=== PATIENT | female | born 1930 | race Caucasian/White ===

== ENCOUNTER 2021-06-16 16:45 | Inpatient (IN) ==
--- NOTE | 2021-06-16 17:37 | Emergency Department Note ---
HPI General Chief complaint: Weakness Stated complaint: Weakness, pain, failure to thrive Time Seen by Provider: 06/16/21 16:51 Source: EMS Mode of arrival: EMS Limitations: no limitations History of Present Illness HPI Narrative: Narrative: This is a pleasant 89-year-old female who presents emergency department with a complaint of weakness, chest pain, productive cough, abdominal pain. She states that about 2 weeks ago she started to develop her symptoms. She has not been getting any better and is here in the emergency department for evaluation. She also states that the hospice people took away all of her medication so she has not had any of her pain medication in 4 days. She reports she is no longer on hospice she also has been having some lower abdominal pain that she describes as a aching sensation. Nothing makes her pain worse or better. She also has substernal left-sided chest pain when she takes a deep breath in. She denies shortness of breath. She has also been having a sometimes productive cough over the last 2 weeks as well. She denies any fever, headache, blurry vision, nausea, vomiting, diarrhea, dysuria, urinary frequency or urgency. Related Data Home Medications Medication Instructions Recorded Confirmed ibuprofen PO 07/29/14 10/23/20 simethicone 125 mg capsule (Gas 125 mg PO .COMPLEX PRN 09/12/19 10/23/20 Relief Extra Strength) Previous Rx's Medication Instructions Recorded diaper,brief,adult,disposable #120 each 07/08/15 ([employer]) toilet seat riser #1 ea 04/20/17 home oxygen #1 ea 08/24/17 Handicap Placard See Rx Instructions .ROUTE 12/21/17 .COMPLEX #2 polyethylene glycol 3350 17 gram 17 g PO QDAY #30 each 10/23/19 oral powder packet 3x3 foam dressing #10 each 11/28/19 Commode #1 ea 12/20/19 magnesium citrate 125 mg capsule 125 mg PO QHS #7 cap 07/11/20 albuterol sulfate 2.5 mg (3 mL) INHALATION Q4H PRN 08/19/20 #540 ml fluticasone furoate 200 1 inh INHALATION Q24H #1 device 09/01/20 mcg-vilanterol 25 mcg/dose inhalation powder (Breo Ellipta) fluticasone propionate 50 2 spray INTRANASAL BID #16 g 09/01/20 mcg/actuation nasal spray,suspension Ventolin HFA 90 mcg/actuation See Rx Instructions .ROUTE 09/29/20 aerosol inhaler (albuterol sulfate) .COMPLEX #18 gram NS cephalexin 500 mg capsule 500 mg PO BID #20 cap 10/03/20 hydrocodone 10 mg-acetaminophen 1 tab PO Q4H PRN #168 tab 10/06/20 325 mg tablet Allergies Allergy/AdvReac Type Severity Reaction Status Date / Time Sulfa (Sulfonamide Allergy Unknown Unknown Verified 06/16/21 16:49 Antibiotics) Review of Systems ROS ROS Narrative: Narrative: [facility] Narrative Patient History Narrative: Narrative: Medical/Surgical/Family History All Active Problems (Updated 06/16/21 @ 20:19 by Jovani Dominguez PA-C) Fungal infection of skin (Acute) Constipation (Acute) Pressure ulcer of back (Acute) Pneumonia (Acute) Colitis (Acute) Lung mass (Acute) Excessive cerumen in left ear canal (Acute) Cellulitis of earlobe (Acute) Medicare annual wellness visit, initial (Acute) Migraines (Acute) Joint pain (Acute) Muscle pain (Acute) History of colonoscopy (Acute ~2013) Chronic abdominal pain (Acute) Sinusitis, acute (Acute) Sinus pressure (Acute) Urinary tract infection (Acute) 23-polyvalent pneumococcal polysaccharide vaccine declined (Chronic) Acute exacerbation of chronic obstructive airways disease (Acute) Lumbar radiculopathy (Chronic) Encounter for medication refill (Acute) Geriatric health maintenance (Acute) Wrist pain (Chronic 05/22/14) Weight loss (Chronic 05/22/14) Thyroid mass (Chronic 05/22/14) Osteoporosis (Chronic 03/22/14) Meniere's disease (Chronic) Melanoma of skin (Chronic) Irritable bowel syndrome (Chronic) Hyperlipidemia (Chronic) External hemorrhoids (Chronic) Gastroesophageal reflux (Chronic) Uterine fibroid (Chronic) Degeneration of lumbosacral intervertebral disc (Chronic) Constipation (Chronic) Chronic back pain (Chronic) Chronic obstructive pulmonary disease (Chronic) Medical History 23-polyvalent pneumococcal polysaccharide vaccine declined Acute exacerbation of chronic obstructive airways disease Cellulitis of earlobe Chronic back pain Back Chronic obstructive pulmonary disease Constipation Degeneration of lumbosacral intervertebral disc Encounter for medication refill Excessive cerumen in left ear canal External hemorrhoids Gastritis Gastroesophageal reflux Hyperlipidemia Irritable bowel syndrome Joint pain Lumbar radiculopathy Medicare annual wellness visit, initial Melanoma of skin Removed 2002 Meniere's disease Migraines Muscle pain Osteoporosis (03/22/14) Thyroid mass (05/22/14) Uterine fibroid Weight loss (05/22/14) Wrist pain (05/22/14) Surgical History History of colonoscopy (~2013) History of hemorrhoidectomy History of malignant neoplasm of skin Family History Unknown Alcohol abuse Family history of chronic pain Cardiac disease Essential hypertension Osteoarthritis Social History Smoking Status: Current every day smoker Alcohol Intake Frequency: a few times a month Substance Use: does not use Exam Narrative Narrative: Narrative: General Limitations: no limitations General appearance: Present alert and in no apparent distress Head Head: Present atraumatic and normocephalic Respiratory Respiratory: Present other (There is mild Rales in the right lower lobe. Otherw ise a clear to auscultation. Tachypnea) Cardiovascular Cardiovascular: Present tachycardia and normal heart sounds Adbominal Abdominal: Present other (Abdomen is soft and nondistended. There is no gua rding. Patient has tenderness in right and left lower quadrants and suprapubic as well.) Back Back: Present other (Negative CVA tenderness bilaterally. Patient does have some chronic ulcers on her back. They are stage I and are covered with a Band- Aid. No surrounding erythema. No purulent drainage.) Neurological Neurological: Present alert and oriented X3 Psychiatric Psychiatric: Present normal affect and normal mood Skin Skin: Present warm (WNL), dry and normal color Course Vital Signs Vital signs: Vital Signs Temperature 98.3 F 06/16/21 16:45 Pulse Rate 101 H 06/16/21 16:45 Respiratory Rate 16 06/16/21 16:45 Blood Pressure 116/77 06/16/21 16:45 Pulse Oximetry (%) 96 06/16/21 16:45 Temperature 98.3 F 06/16/21 16:45 Pulse Rate 104 H 06/16/21 18:46 Respiratory Rate 31 H 06/16/21 18:46 Blood Pressure 128/72 06/16/21 18:46 Pulse Oximetry (%) 95 06/16/21 18:46 MDM MDM Narrative Medical decision making narrative: Narrative: CBC leukocytosis with elevated absolute neutrophil count CMP anion gap 17 at BUN 36 1 L of fluid given Procalcitonin elevated Troponin 0 ECG shows a sinus rhythm Chest x-ray shows pneumonia in right lower lobe CT abdomen pelvis with contrast shows gallbladder is a mildly distended. There is slight prominence of the biliary ductal structures and common bile duct. Further evaluation of the biliary ductal system and gallbladder with ultrasound may be benefit. Small hiatal hernia is suspected. There is no evidence of bowel obstruction. There is a some fecal debris within the proximal slight thickening of the distal colonic wall involving the sigmoid colon is noted. Mild colitis is suspected. There is slight infiltrates with atelectasis in both lungs that this is slightly more pronounced on the right. CURB-65 Score for Pneumonia Severity from [email or web address] on 06/16/2021 All calculations should be rechecked by clinician prior to use RESULT SUMMARY: 2 points Moderate risk group: 6.8% 30-day mortality. Consider inpatient treatment or outpatient with close followup. INPUTS: Confusion > 0 = No BUN > 19 mg/dL (> 7 mmol/L) > 0 = No Respiratory Rate >=30 > 1 = Yes Systolic BP > 0 = No Age >=65 > 1 = Yes With the patient's curb 65 being a moderate risk group and her still being tachycardic and tachypneic I think it reasonable to keep her in the hospital for pneumonia and colitis. She will most likely need a CT of her chest to better evaluate for the new mass that was seen. Her UA is still pending. I spoke with Dr. Chen who agreed to admit the patient for further evaluation and treatment. Lab Data Result diagrams: 06/16/21 17:14 06/16/21 17:14 Labs: Lab Results 06/16/21 06/16/21 06/16/21 Range/Units 16:14 17:14 17:14 WBC 15.6 H (4.5-11.0) K/mcL RBC 4.48 (3.59-5.38) M/mcL Hgb 14.9 (11.2-15.7) g/dL Hct 45.5 H (34.1-44.9) % MCV 101.6 H (80.0-100.0) fL MCH 33.3 (26.0-34.0) pg MCHC 32.7 (31.0-36.0) g/dL RDW 13.6 (11.5-14.5) % Plt Count 253 (140-440) K/mcL MPV 10.0 (7.4-10.4) fL Neut % (Auto) 65.7 (38.0-78.0) % Lymph % (Auto) 26.4 (15.5-49.0) % [place] % (Auto) 7.0 (1.0-12.0) % Eos % (Auto) 0.5 (0.0-7.0) % Baso % (Auto) 0.4 (0.0-2.0) % Lymph # (Auto) 4.12 (1.50-4.80) K/mcL [place] # (Auto) 1.09 H (0.10-0.90) K/mcL Eos # (Auto) 0.08 (0.00-0.70) K/mcL Baso # (Auto) 0.06 (0.00-0.30) K/mcL Absolute Neutrophils 10.28 H (1.80-8.00) K/mcL ABG Methemoglobin (0.4-1.5) % VBG pH (7.32-7.42) U VBG pCO2 (41.0-51.0) mmHg VBG pO2 (25.0-40.0) mmHg VBG HCO3 (24.0-28.0) mmol/L VBG Total CO2 (25.0-29.0) mmol/L VBG O2 Saturation (40.0-70.0) % VBG Base Excess (-2-3) VBG Lactic Acid (0.5-2.0) mmol/L Carboxyhemoglobin (0.0-1.5) % THgb Total Hemoglobin (12.0-15.0) gm/Dl Sodium 134 (133-145) mmol/L Potassium 3.6 (3.3-5.1) mmol/L Chloride 99 (96-108) mmol/L Carbon Dioxide 18 L (22-30) mmol/L Anion Gap 17.0 H (8.0-16.0) BUN 36 H (8-23) mg/dL Creatinine 0.9 (0.6-1.1) mg/dL GFR Calculation 57 Glucose 83 (70-105) mg/dL Calcium 9.3 (8.6-10.4) mg/dL Magnesium 2.3 (1.6-2.5) mg/dL Total Bilirubin < 0.2 (0.1-1.0) mg/dL AST 27 (<32) U/L ALT 12 (<40) U/L Alkaline Phosphatase 75 (39-117) U/L Total Protein 6.4 (5.9-8.4) gm/dL Albumin 3.7 (3.2-5.2) gm/dL Globulin 2.7 (2.2-3.7) gm/dL Albumin/Globulin Ratio 1.4 (1.0-2.3) Procalcitonin 0.72 H (<0.10) ng/mL POC Troponin I (0.02-0.08) 06/16/21 06/16/21 06/16/21 Range/Units 17:54 17:54 19:35 WBC (4.5-11.0) K/mcL RBC (3.59-5.38) M/mcL Hgb (11.2-15.7) g/dL Hct (34.1-44.9) % MCV (80.0-100.0) fL MCH (26.0-34.0) pg MCHC (31.0-36.0) g/dL RDW (11.5-14.5) % Plt Count (140-440) K/mcL MPV (7.4-10.4) fL Neut % (Auto) (38.0-78.0) % Lymph % (Auto) (15.5-49.0) % [place] % (Auto) (1.0-12.0) % Eos % (Auto) (0.0-7.0) % Baso % (Auto) (0.0-2.0) % Lymph # (Auto) (1.50-4.80) K/mcL [place] # (Auto) (0.10-0.90) K/mcL Eos # (Auto) (0.00-0.70) K/mcL Baso # (Auto) (0.00-0.30) K/mcL Absolute Neutrophils (1.80-8.00) K/mcL ABG Methemoglobin 0.3 L (0.4-1.5) % VBG pH 7.40 (7.32-7.42) U VBG pCO2 35.4 L (41.0-51.0) mmHg VBG pO2 46.6 H (25.0-40.0) mmHg VBG HCO3 21.4 L (24.0-28.0) mmol/L VBG Total CO2 22.5 L (25.0-29.0) mmol/L VBG O2 Saturation 78.0 H (40.0-70.0) % VBG Base Excess -3 L (-2-3) VBG Lactic Acid 1.4 (0.5-2.0) mmol/L Carboxyhemoglobin 7.8 H (0.0-1.5) % THgb Total Hemoglobin 15.4 H (12.0-15.0) gm/Dl Sodium (133-145) mmol/L Potassium (3.3-5.1) mmol/L Chloride (96-108) mmol/L Carbon Dioxide (22-30) mmol/L Anion Gap (8.0-16.0) BUN (8-23) mg/dL Creatinine (0.6-1.1) mg/dL GFR Calculation Glucose (70-105) mg/dL Calcium (8.6-10.4) mg/dL Magnesium (1.6-2.5) mg/dL Total Bilirubin (0.1-1.0) mg/dL AST (<32) U/L ALT (<40) U/L Alkaline Phosphatase (39-117) U/L Total Protein (5.9-8.4) gm/dL Albumin (3.2-5.2) gm/dL Globulin (2.2-3.7) gm/dL Albumin/Globulin Ratio (1.0-2.3) Procalcitonin (<0.10) ng/mL POC Troponin I 0 L (0.02-0.08) EKG Data EKG #1: EKG results narrative: ECG shows sinus tachycardia 107 beats a minute, normal axis, normal [place] interval narrow QS normal QTC. There is a 1 PVC that I see. There is no signs of Brugada, Fxdto-Snyyyktym-Ltrbb or HOCM. There is no ST segment deviations or hy peracute T waves. My interpretation is a sinus tachycardia. Discharge Plan Patient/Caregiver Discharge Instructions Pt seen by [employer]ENDER/PA only: Yes Clinical Impression: Pneumonia, Colitis, Lung mass Activity: increase activity as tolerated Patient Disposition: Xfer As Inpt ([facility] Follow up with: Provider,Other [Primary Care Provider] - Prescriptions: No Action (DME) diaper,brief,adult,disposable [[employer]] misc See Dose Instructions .ROUTE .MEDSUPPLY Qty: 120 0RF Dose Instruction: As directed Rx Instructions: As directed (DME) toilet seat riser Qty: 1 0RF Dose Instruction: As directed Rx Instructions: As directed Handicap Placard See Rx Instructions .ROUTE .COMPLEX Qty: 2 0RF Dose Instruction: As directed ; Rx Instructions: As directed ; polyethylene glycol 3350 17 gram powder in packet 17 g PO QDAY Qty: 30 5RF Rx Instructions: mix into 4-8 oz. of any hot/cold/room temp. beverage; use immediately (DME) 3x3 foam dressing Qty: 10 3RF Rx Instructions: As directed (DME) Commode Qty: 1 0RF Rx Instructions: As directed albuterol sulfate 2.5 mg /3 mL (0.083 %) solution for nebulization 2.5 mg INHALATION Q4H PRN (Reason: shortness of breath) Qty: 540 2RF fluticasone propionate 50 mcg/actuation spray,suspension 2 spray INTRANASAL BID Qty: 16 2RF Label Comments: For 30 days Breo Ellipta 200-25 mcg/dose blister with device 1 inh INHALATION Q24H Qty: 1 5RF Rx Instructions: after inhalation, rinse mouth with water and spit out; do not swallow albuterol sulfate [Ventolin HFA] 90 mcg/actuation HFA aerosol inhaler See Rx Instructions .ROUTE .COMPLEX Qty: 18 5RF Dose Instruction: USE WITH 2 PUFFS INHALATION EVERY 6 HOURS * ADMINISTER WITH SPACER Rx Instructions: USE WITH 2 PUFFS INHALATION EVERY 6 HOURS * ADMINISTER WITH SPACER cephalexin 500 mg capsule 500 mg PO BID Qty: 20 0RF hydrocodone-acetaminophen 10-325 mg tablet 1 tab PO Q4H PRN (Reason: pain) Qty: 168 0RF Hold Instructions: Doctor's Order Rx Instructions: 28 day script Max 6/Day ibuprofen PO 0RF simethicone [Gas Relief Extra Strength] 125 mg capsule 125 mg PO .COMPLEX PRN0RF Rx Instructions: 125 mg PO PRN; (DME) home oxygen Qty: 1 0RF Dose Instruction: As directed Rx Instructions: As directed magnesium citrate 125 mg capsule 125 mg PO QHS Qty: 7 0RF
[2021-06-16 18:04] LABS: Basophils # (Auto) 0.06 K/mcL (0.00-0.30); Basophils % (Auto) 0.4 % (0.0-2.0); Eosinophils # (Auto) 0.08 K/mcL (0.00-0.70); Eosinophils % (Auto) 0.5 % (0.0-7.0); Hematocrit 45.5 % (34.1-44.9); Hemoglobin 14.9 g/dL (11.2-15.7); Lymphocytes # (Auto) 4.12 K/mcL (1.50-4.80); Lymphocytes % (Auto) 26.4 % (15.5-49.0); Mean Cell Volume 101.6 fL (80.0-100.0); Mean Corpuscular HGB Conc 32.7 g/dL (31.0-36.0); Monocytes # (Auto) 1.09 K/mcL (0.10-0.90); Neutrophils % (Auto) 65.7 % (38.0-78.0); Platelet Count 253 K/mcL (140-440); RBC 4.48 M/mcL (3.59-5.38); Red Cell Distribution Width 13.6 % (11.5-14.5); WBC 15.6 K/mcL (4.5-11.0)
[2021-06-16] MEDS ORDERED: morphine 2 MG/ML VIAL IV ONE (18:05)
[2021-06-16] MEDS ORDERED: ONDANSETRON 4 MG/2 ML VIAL IV ONE (18:05)
[2021-06-16 18:12] LABS: ALT/SGPT 12 U/L (<40); AST/SGOT 27 U/L (<32); Albumin 3.7 gm/dL (3.2-5.2); Albumin/Globulin Ratio 1.4 (1.0-2.3); Alkaline Phosphatase 75 U/L (39-117); Bilirubin,Total < 0.2 mg/dL (0.1-1.0); Blood Urea Nitrogen 36 mg/dL (8-23); Calcium 9.3 mg/dL (8.6-10.4); Carbon Dioxide 18 mmol/L (22-30); Chloride 99 mmol/L (96-108); Globulin 2.7 gm/dL (2.2-3.7); Glomerular Filtration Rate 57; Glucose 83 mg/dL (70-105)
[2021-06-16 18:19] LABS: ABG Methemoglobin 0.3 % (0.4-1.5); Total Hemoglobin 15.4 gm/Dl (12.0-15.0); VBG Base Excess -3 (-2-3); VBG HCO3 21.4 mmol/L (24.0-28.0); VBG PCO2 35.4 mmHg (41.0-51.0); VBG PO2 46.6 mmHg (25.0-40.0); VBG Total CO2 22.5 mmol/L (25.0-29.0)
--- NOTE | 2021-06-16 18:48 | XRay Report ---
CLINICAL INFORMATION: Weakness and sepsis COMPARISON: 06/19/2016 TECHNIQUE: Portable FINDINGS: The heart size, mediastinum and pulmonary vessels are unremarkable. Moderate COPD noted. A new 18 mm stellate nodule developed in the left upper lung Moderate patchy infiltrates developed in the right lung base. Small right pleural effusion noted.. The bones and soft tissues are within normal limits. IMPRESSION: Moderate patchy infiltrate right lung base likely pneumonia. Moderate COPD New 18 mm stellate nodule left upper lobe. This could potentially represent pulmonary malignancy. Suggest chest CT Interpreted and Authenticated by: Yomi Damico 06/16/21
[2021-06-16] MEDS ORDERED: 0.9 % SODIUM CHLORIDE 1,000 ML IV ONE (19:25)
[2021-06-16] MEDS ORDERED: cefTRIAXone 1 GM VIAL IV ONE (19:34)
[2021-06-16] MEDS ORDERED: AZITHROMYCIN 500 MG in DEXTROSE 5% IN WATER 250 ML IV ONE (19:34)
[2021-06-16] MEDS ORDERED: diphenhydrAMINE 50 MG/ML VIAL IV ONE (19:52)
[2021-06-16] MEDS ORDERED: NICOTINE 7 MG PATCH TOPICAL ONE (20:04)
--- NOTE | 2021-06-16 20:44 | Internal Med History&Physical ---
HPI History of Present Illness Patient information: Note initiated : 06/16/21 at 8:30 pm Service Date, if different from initiated Date: [] Patient: Yudi Dotson a 89 y/o F admitted on for Weakness, pain, failure to thrive. Chief Complaint: [] History of present illness: Ms. Dotson is a 89 year old F Most of the history is obtained from chart and staff as patient is a poor historian and has significant hearing impairment. Sounds like she was on hospice as of 4 days ago but then was discharged from hospice because she did not want to go into the facility and want to stay home. It sounds like she been off her pain medications since then. She came in for generalized weakness nausea history of chronic pain and failure to thrive. Work-up in the ED revealed a right lower lobe pneumonia with elevated procalcitonin and leukocytosis. She was tachycardic and tachypneic. Oxygenation was okay. She did have elevated BUN/creatinine ratio. Because of her abdominal pain which seems to be chronic she did have a CT abdomen pelvis which showed some mild colitis in the sigmoid region which I am unsure of the significance of that. Also noted chest x-ray was a 18 mm solid nodule in the left upper lobe. Per PCP note she has a history of COPD chronic pain GERD irritable bowel syndrome. Review of systems: Strongly difficult to obtain given her severe hearing impairment and she is seems to have some degree of dementia frequently talking i n tangents. PFSH PFSH All Active Problems (Updated 06/16/21 @ 20:19 by Jovani Dominguez PA-C) Fungal infection of skin (Acute) Constipation (Acute) Pressure ulcer of back (Acute) Pneumonia (Acute) Colitis (Acute) Lung mass (Acute) Excessive cerumen in left ear canal (Acute) Cellulitis of earlobe (Acute) Medicare annual wellness visit, initial (Acute) Migraines (Acute) Joint pain (Acute) Muscle pain (Acute) History of colonoscopy (Acute ~2013) Chronic abdominal pain (Acute) Sinusitis, acute (Acute) Sinus pressure (Acute) Urinary tract infection (Acute) 23-polyvalent pneumococcal polysaccharide vaccine declined (Chronic) Acute exacerbation of chronic obstructive airways disease (Acute) Lumbar radiculopathy (Chronic) Encounter for medication refill (Acute) Geriatric health maintenance (Acute) Wrist pain (Chronic 05/22/14) Weight loss (Chronic 05/22/14) Thyroid mass (Chronic 05/22/14) Osteoporosis (Chronic 03/22/14) Meniere's disease (Chronic) Melanoma of skin (Chronic) Irritable bowel syndrome (Chronic) Hyperlipidemia (Chronic) External hemorrhoids (Chronic) Gastroesophageal reflux (Chronic) Uterine fibroid (Chronic) Degeneration of lumbosacral intervertebral disc (Chronic) Constipation (Chronic) Chronic back pain (Chronic) Chronic obstructive pulmonary disease (Chronic) Medical History 23-polyvalent pneumococcal polysaccharide vaccine declined Acute exacerbation of chronic obstructive airways disease Cellulitis of earlobe Chronic back pain Back Chronic obstructive pulmonary disease Constipation Degeneration of lumbosacral intervertebral disc Encounter for medication refill Excessive cerumen in left ear canal External hemorrhoids Gastritis Gastroesophageal reflux Hyperlipidemia Irritable bowel syndrome Joint pain Lumbar radiculopathy Medicare annual wellness visit, initial Melanoma of skin Removed 2002 Meniere's disease Migraines Muscle pain Osteoporosis (03/22/14) Thyroid mass (05/22/14) Uterine fibroid Weight loss (05/22/14) Wrist pain (05/22/14) Surgical History History of colonoscopy (~2013) History of hemorrhoidectomy History of malignant neoplasm of skin Family History Unknown Alcohol abuse Family history of chronic pain Cardiac disease Essential hypertension Osteoarthritis Social History marital status: occupational 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 other: 7 Children, 1 diseaced from lymphoma, 4 grandchildren, 3 great granchildren smoking status: Current every day smoker tobacco type: cigarettes per day: 20 quit status: not considering quitting alcohol intake frequency: a few times a month substance use type: does not use MEDS/ALLERGIES Home Medications and Allergies Home Medications Medication Instructions Recorded Confirmed Type ibuprofen PO 07/29/14 10/23/20 History diaper,brief,adult,disposable #120 each 07/08/15 10/23/20 Rx ([employer]) toilet seat riser #1 ea 04/20/17 10/23/20 Rx home oxygen #1 ea 08/24/17 10/23/20 Rx Handicap Placard See Rx Instructions .ROUTE 12/21/17 10/23/20 Rx .COMPLEX #2 simethicone 125 mg capsule (Gas 125 mg PO .COMPLEX PRN 09/12/19 10/23/20 History Relief Extra Strength) polyethylene glycol 3350 17 gram 17 g PO QDAY #30 each 10/23/19 10/23/20 Rx oral powder packet 3x3 foam dressing #10 each 11/28/19 10/23/20 Rx Commode #1 ea 12/20/19 10/23/20 Rx magnesium citrate 125 mg capsule 125 mg PO QHS #7 cap 07/11/20 10/23/20 Rx albuterol sulfate 2.5 mg (3 mL) INHALATION Q4H PRN 08/19/20 10/23/20 Rx #540 ml fluticasone furoate 200 1 inh INHALATION Q24H #1 device 09/01/20 10/23/20 Rx mcg-vilanterol 25 mcg/dose inhalation powder (Breo Ellipta) fluticasone propionate 50 2 spray INTRANASAL BID #16 g 09/01/20 10/23/20 Rx mcg/actuation nasal spray,suspension Ventolin HFA 90 mcg/actuation See Rx Instructions .ROUTE 09/29/20 10/23/20 Rx aerosol inhaler (albuterol sulfate) .COMPLEX #18 gram NS cephalexin 500 mg capsule 500 mg PO BID #20 cap 10/03/20 10/23/20 Rx hydrocodone 10 mg-acetaminophen 1 tab PO Q4H PRN #168 tab 10/06/20 10/23/20 Rx 325 mg tablet Allergies Allergy/AdvReac Type Severity Reaction Status Date / Time Sulfa (Sulfonamide Allergy Unknown Unknown Verified 06/16/21 16:49 Antibiotics) EXAM Constitutional Vitals: Temp Pulse Resp BP Pulse Ox 98.3 F 95 H 24 H 143/91 93 06/16/21 16:45 06/16/21 20:26 06/16/21 20:26 06/16/21 20:16 06/16/21 20:26 Exam: General: Alert, Awake, No acute Distress, cachectic Eyes/N/T: EOMI, PERRL, dryMM Head/Neck: neck supple, normocephalic atraumatic CV: Mildly tacky but regular, No murmurs, normal s1/s2 Pulm: Clear b/l, no wheezing/rhonchi/rales Abd: soft, nontender, +BS x4 Ext: no clubbing/cyanosis/edema Neuro: Alert, no focal deficits, moves all extremities, CN 2-12 grossly intact, symmetrical strength b/l upper/lower, sensations intact b/l upper/lower Skin: warm/dry DATA Data Completed and Pending Labs: Labs from last 24 hours 06/16/21 06/16/21 06/16/21 19:35 17:54 17:54 WBC RBC Hgb Hct MCV MCH MCHC RDW Plt Count MPV Neut % (Auto) Lymph % (Auto) [place] % (Auto) Eos % (Auto) Baso % (Auto) Lymph # (Auto) [place] # (Auto) Eos # (Auto) Baso # (Auto) Absolute Neutrophils ABG Methemoglobin 0.3 L VBG pH 7.40 VBG pCO2 35.4 L VBG pO2 46.6 H VBG HCO3 21.4 L VBG Total CO2 22.5 L VBG O2 Saturation 78.0 H VBG Base Excess -3 L VBG Lactic Acid 1.4 Carboxyhemoglobin 7.8 H Total Hemoglobin 15.4 H Sodium Potassium Chloride Carbon Dioxide Anion Gap BUN Creatinine GFR Calculation Glucose Calcium Magnesium Total Bilirubin AST ALT Alkaline Phosphatase Total Protein Albumin Globulin Albumin/Globulin Ratio Procalcitonin POC Troponin I 0 L 06/16/21 06/16/21 06/16/21 17:14 17:14 16:14 WBC 15.6 H RBC 4.48 Hgb 14.9 Hct 45.5 H MCV 101.6 H MCH 33.3 MCHC 32.7 RDW 13.6 Plt Count 253 MPV 10.0 Neut % (Auto) 65.7 Lymph % (Auto) 26.4 [place] % (Auto) 7.0 Eos % (Auto) 0.5 Baso % (Auto) 0.4 Lymph # (Auto) 4.12 [place] # (Auto) 1.09 H Eos # (Auto) 0.08 Baso # (Auto) 0.06 Absolute Neutrophils 10.28 H ABG Methemoglobin VBG pH VBG pCO2 VBG pO2 VBG HCO3 VBG Total CO2 VBG O2 Saturation VBG Base Excess VBG Lactic Acid Carboxyhemoglobin Total Hemoglobin Sodium 134 Potassium 3.6 Chloride 99 Carbon Dioxide 18 L Anion Gap 17.0 H BUN 36 H Creatinine 0.9 GFR Calculation 57 Glucose 83 Calcium 9.3 Magnesium 2.3 Total Bilirubin < 0.2 AST 27 ALT 12 Alkaline Phosphatase 75 Total Protein 6.4 Albumin 3.7 Globulin 2.7 Albumin/Globulin Ratio 1.4 Procalcitonin 0.72 H POC Troponin I A/P Narrative A/P Narrative: A: *Pneumonia(RLL): -[id number] -elevated pct *SIRS: *Volume depletion: *URMILA on CKD III: *Metabolic acidosis: *Malnutrition, severe, protein: Muscle and subcutaneous fat loss/diminished functional status *FTT: *mild colitis of sigmoid: ?significance *COPD: *stellate lung nodule 18mm: *Chronic pain: *Recently on hospice: Withdrew because she did not want to go into a facility P: -Rocephin/Zithromax, pending BC -IS/Acapella, prn nebs -IVF -Follow-up chemistry and renal function -Dietary consult -CT chest to evaluate lung nodule - -PT/OT -CM for placement -ppx: lovenox Time Spent With Patient Time: Total time spent is greater than 50% in coordination of care (as documented) at patient's floor/unit and/or counseling patient: Total time spent with greater than 50% in coordination of care (as documented) at patient's floor/unit and/or counseling patient:: 50 - 70 minutes
[2021-06-16 22:14] LABS: Appearance,Urine HAZY (Clear); Bilirubin,Urine Negative (Negative); Color,Urine YELLOW; Culture Indicated,Urine yes; Glucose,Urine (UA) Negative (Negative); Ketones,Urine 5 mg/dL (Negative); Leukocyte Esterase,Urine 250 /uL (Negative); Mucus,Urine FEW /hpf; Nitrate,Urine Negative (Negative); Protein,Urine 30 mg/dL (Negative); Urine Blood Negative (Negative); Urine RBC 21 /hpf (0-3); Urine Squamous Epithelial Cell 1 /hpf (0-4); Urine WBC 116 /hpf (0-4); Urobilinogen,Urine Negative
[2021-06-17] MEDS ORDERED: MAGNESIUM SULFATE 2 GM/50 ML BAG IV PRN (01:36)
[2021-06-17] MEDS ORDERED: IPRATROPIUM/ALBUTEROL 3 ML AMPUL.NEB NEB PRN (01:36)
[2021-06-17] MEDS ORDERED: AZITHROMYCIN 500 MG in DEXTROSE 5% IN WATER 250 ML IV SCH (01:36)
[2021-06-17] MEDS ORDERED: POTASSIUM CHLORIDE 40 MEQ in DEXTROSE 5% IN WATER 500 ML IV PRN (01:36)
[2021-06-17] MEDS ORDERED: 0.9 % SODIUM CHLORIDE 1,000 ML IV ONE (01:36)
[2021-06-17] MEDS ORDERED: POTASSIUM CHLORIDE 20 MEQ TABLET PO PRN ×2 (01:36)
[2021-06-17] MEDS: 0.9 % SODIUM CHLORIDE 10 ML SYRINGE IV SCH ×4 (01:40→21:48)
[2021-06-17] MEDS: DOCUSATE SODIUM 100 MG CAPSULE PO SCH ×3 (02:30→22:36)
[2021-06-17] MEDS ORDERED: cefTRIAXone 1 GM VIAL ONE (03:18)
[2021-06-17] MEDS: cefTRIAXone 2 GM in DEXTROSE 5% IN WATER 50 ML IV SCH ×2 (03:30→03:34)
[2021-06-17] MEDS: HYDROcodone/APAP 5/325MG TABLET PO PRN ×4 (03:46→21:28)
[2021-06-17] MEDS ORDERED: HYDROcodone/APAP 5/325MG TABLET PO ONE (03:53)
[2021-06-17] MEDS: ONDANSETRON 4 MG/2 ML VIAL IV PRN (04:25)
[2021-06-17] MEDS ORDERED: ONDANSETRON 4 MG/2 ML VIAL ONE (04:26)
--- NOTE | 2021-06-17 05:44 | Cat Scan Report ---
CLINICAL INFORMATION: Pelvic pain COMPARISON: Abdomen and pelvic CT 07/11/2020 TECHNIQUE: Following enteric contrast, 80 cc of Isovue-370 were injected intravenously, and 60 seconds later, 0.625 mm helical slices were obtained from the mid heart through the subtrochanteric regions. Following reconstruction, 2.5 mm sagittal, coronal and axial reformatted images were processed and reviewed at bone, lung and soft tissue windows. Five minutes later, 0.625 mm helical slices were obtained from the mid heart through the kidneys and viewed at soft tissue windows.The exam was performed using radiation dose optimization techniques including, but not limited to, automated exposure control, adjustment of the mA and/or kV according to patient size and use of iterative reconstruction technique. FINDINGS: The lung bases show moderate tubular bronchiectasis in the left lower lobe bronchi. Patchy airspace disease in both posterior lower lobes more prominent on the right is most compatible atelectasis. Probable emboli are seen in the medial posterior and lateral basilar segmental arteries of the right lower lobe. There is suboptimally visualized. The heart is moderately enlarged and there is calcification in the region of mitral valve. Abdominal images show mild fatty change of the liver. There are scattered (seven eight) vague high attenuation foci in the periphery of the liver ranging up to 14 mm in the right hepatic lobe. These likely represent benign transient attenuation differences and/or small vascular malformations. There are two adjacent cysts in the medial segment of the left hepatic lobe spans 17 mm. The gallbladder and bile ducts, both kidneys, adrenal glands, spleen and pancreas are normal. The abdominal aorta is mildly ectatic with extraordinarily heavy calcific and fibrofatty plaque. 90% stenosis of the proximal left renal artery noted. The left renal artery, celiac and SMA contain plaque but no stenoses. The BALDEMAR is occluded at its origin. There is extraordinarily heavy calcific and fibrofatty plaque in both common iliac, external iliac and common femoral arteries. Calcification precludes adequate grading however hemodynamically significant stenoses are suspected-particularly on the right side. Pelvic images show retroflexed postmenopausal uterus which is normal in size 6.5 x 1.8 cm. The region of both ovaries is normal. Urinary bladder is unremarkable. The stomach, small and large bowel show symmetric dilatation compatible with mild ileus. There is moderate colonic stool. There is no free air, free fluid no adenopathy. Bone windows show mild T11 compression fracture which is new from the previous exam. Multilevel degeneration again noted. IMPRESSION: 1. Probable pulmonary emboli in the right lower lobe segmental pulmonary arteries. This is suboptimally visualized. Suggest CT pulmonary angiogram. 2. Moderate ileus. 3. 90% stenoses right renal artery. Occlusion of the BALDEMAR. 4. Extensive plaque throughout the iliofemoral arteries bilaterally likely reflects hemodynamically significant stenoses-particularly on the right side. Please correlate with groin pulses and history of rest pain or claudication. 5. Scattered high attenuation foci in the liver periphery likely represent benign transient attenuation differences. More ominous pathology such as metastatic lesions are less likely. Suggest limited hepatic ultrasound. 2. Scattered high attenuation foci in the liver periphery likely represent benign transient attenuation differences. More ominous pathology such as metastatic lesions are less likely. Suggest limited hepatic ultrasound. Interpreted and Authenticated by: Yomi Damico 06/17/21
[2021-06-17 06:43] LABS: Basophils # (Auto) 0.05 K/mcL (0.00-0.30); Basophils % (Auto) 0.5 % (0.0-2.0); Eosinophils # (Auto) 0.14 K/mcL (0.00-0.70); Eosinophils % (Auto) 1.3 % (0.0-7.0); Hematocrit 41.8 % (34.1-44.9); Hemoglobin 13.1 g/dL (11.2-15.7); Lymphocytes # (Auto) 2.95 K/mcL (1.50-4.80); Lymphocytes % (Auto) 28.2 % (15.5-49.0); Mean Cell Volume 102.7 fL (80.0-100.0); Mean Corpuscular HGB Conc 31.3 g/dL (31.0-36.0); Mean Platelet Volume 9.2 fL (7.4-10.4); Monocytes # (Auto) 0.91 K/mcL (0.10-0.90); Monocytes % (Auto) 8.7 % (1.0-12.0); Neutrophils % (Auto) 61.3 % (38.0-78.0); Platelet Count 225 K/mcL (140-440); RBC 4.07 M/mcL (3.59-5.38); Red Cell Distribution Width 13.7 % (11.5-14.5); WBC 10.5 K/mcL (4.5-11.0)
[2021-06-17 07:07] LABS: ALT/SGPT 10 U/L (<40); AST/SGOT 22 U/L (<32); Albumin 3.2 gm/dL (3.2-5.2); Albumin/Globulin Ratio 1.3 (1.0-2.3); Alkaline Phosphatase 63 U/L (39-117); Bilirubin,Direct < 0.2 mg/dL (0-0.3); Bilirubin,Total < 0.2 mg/dL (0.1-1.0); Blood Urea Nitrogen 26 mg/dL (8-23); Calcium 8.3 mg/dL (8.6-10.4); Carbon Dioxide 21 mmol/L (22-30); Chloride 105 mmol/L (96-108); Globulin 2.4 gm/dL (2.2-3.7); Glomerular Filtration Rate 77; Glucose 77 mg/dL (70-105); Lactate Dehydrogenase 240 U/L (135-225); Phosphorous 2.3 mg/dL (2.5-4.5); Triglycerides 153 mg/dL (<150)
[2021-06-17 07:10] LABS: Prealbumin 23.4 mg/dL (20.0-40.0)
[2021-06-17] MEDS ORDERED: cefTRIAXone 1 GM VIAL IV ONE (07:30)
--- NOTE | 2021-06-17 07:38 | Internal Med Progress Note ---
SUBJECTIVE Subjective Patient information: Note initiated : 06/17/21 at 7:28 am Service Date, if different from initiated Date: [] Patient: Yudi Dotson a 89 y/o F admitted on 06/17/21 for Weakness, pain, failure to thrive. Chief Complaint: [] Interval history: History of present illness: Ms. Dotson is a 89 year old F Most of the history is obtained from chart and staff as patient is a poor historian and has significant hearing impairment. Sounds like she was on hospice as of 4 days ago but then was discharged from hospice because she did not want to go into the facility and want to stay home. It sounds like she been off her pain medications since then. She came in for generalized weakness nausea history of chronic pain and failure to thrive. Work-up in the ED revealed a right lower lobe pneumonia with elevated procalcitonin and leukocytosis. She was tachycardic and tachypneic. Oxygenation was okay. She did have elevated BUN/creatinine ratio. Because of her abdominal pain which seems to be chronic she did have a CT abdomen pelvis which showed some mild colitis in the sigmoid region which I am unsure of the significance of that. Also noted chest x-ray was a 18 mm solid nodule in the left upper lobe. Per PCP note she has a history of COPD chronic pain GERD irritable bowel syndrome. 5/4 Leukocytosis resolved. Pending blood urine culture sputum culture. CTA chest for questionable PE is noted on CT abdomen as well as pulmonary nodule pending. Hypophosphatemia. Review of system: Difficult obtain given patient's severe hearing impairment and dementia, does not seem to answer my questions but talks about random topics. Constitutional Vitals: Vital Signs Temp Pulse Resp BP Pulse Ox 99.2 F H 91 H 24 H 123/65 91 06/17/21 07:23 06/17/21 07:23 06/17/21 07:23 06/17/21 07:23 06/17/21 07:23 Period Temp Pulse Resp BP Sys/Christiansen Pulse Ox Last 24 Hr 98.3 F-99.2 F 91-105 16-32 106-154/57-121 90-96 Intake and Output 06/16/21 06/17/21 06/17/21 21:59 05:59 13:59 Intake Total 1250 Output Total 325 Balance 1250 -325 Weight 37.195 kg 37.195 kg Intake & Output: Intake & Output 06/16/21 06/17/21 06/17/21 21:59 05:59 13:59 Intake Total 1250 Output Total 325 Balance 1250 -325 Weight 37.195 kg 37.195 kg Intake: IV 1250 Sodium Chloride 0.9% 1,000 ml @ 1000 Wide Open IV BOLUS ONE Rx#: [id number] Zithromax 500 mg In Dextrose 5% 250 in Water 250 ml @ 250 mls/hr IV ONCE ONE Rx#:[id number] Output: Urine Catheter Amount 325 Other: Urine Appearance Clear Uretheral (Paredes) Clear Urine Color Pale Uretheral (Paredes) Pale Exam: General: Alert, Awake, No acute Distress, cachectic Eyes/N/T: EOMI, Head/Neck: neck supple, CV: Mildly tacky but regular, No murmurs, Pulm: Clear b/l, no wheezing/rhonchi/rales Abd: soft, nontender, +BS x4 Ext: no clubbing/cyanosis/edema Neuro: Alert, no focal deficits, moves all extremities, Skin: warm/dry Psych: Cognitive impairment OBJ DATA Labs CBC & Chem 7: 06/17/21 05:45 06/17/21 05:45 Labs: Abnormal Lab Results 06/17/21 06/17/21 06/16/21 05:45 05:45 21:00 WBC Hct MCV 102.7 H Coffee # (Auto) 0.91 H Absolute Neutrophils ABG Methemoglobin VBG pCO2 VBG pO2 VBG HCO3 VBG Total CO2 VBG O2 Saturation VBG Base Excess Carboxyhemoglobin Total Hemoglobin Carbon Dioxide 21 L Anion Gap BUN 26 H Calcium 8.3 L Phosphorus 2.3 L Lactate Dehydrogenase 240 H Total Protein 5.6 L Triglycerides 153 H Procalcitonin Urine Appearance Hazy A Urine Protein 30 A Urine Ketones 5 A Ur Leukocyte Esterase 250 A Urine RBC 21 H Urine WBC 116 H Urine Mucus Few A POC Troponin I 06/16/21 06/16/21 06/16/21 19:35 17:54 17:14 WBC Hct MCV Coffee # (Auto) Absolute Neutrophils ABG Methemoglobin 0.3 L VBG pCO2 35.4 L VBG pO2 46.6 H VBG HCO3 21.4 L VBG Total CO2 22.5 L VBG O2 Saturation 78.0 H VBG Base Excess -3 L Carboxyhemoglobin 7.8 H Total Hemoglobin 15.4 H Carbon Dioxide 18 L Anion Gap 17.0 H BUN 36 H Calcium Phosphorus Lactate Dehydrogenase Total Protein Triglycerides Procalcitonin Urine Appearance Urine Protein Urine Ketones Ur Leukocyte Esterase Urine RBC Urine WBC Urine Mucus POC Troponin I 0 L 06/16/21 06/16/21 17:14 16:14 WBC 15.6 H Hct 45.5 H MCV 101.6 H Coffee # (Auto) 1.09 H Absolute Neutrophils 10.28 H ABG Methemoglobin VBG pCO2 VBG pO2 VBG HCO3 VBG Total CO2 VBG O2 Saturation VBG Base Excess Carboxyhemoglobin Total Hemoglobin Carbon Dioxide Anion Gap BUN Calcium Phosphorus Lactate Dehydrogenase Total Protein Triglycerides Procalcitonin 0.72 H Urine Appearance Urine Protein Urine Ketones Ur Leukocyte Esterase Urine RBC Urine WBC Urine Mucus POC Troponin I Meds: Medications Acetaminophen (Acetaminophen 325 Mg Tablet) 650 mg PO Q6HP PRN; Protocol PRN Reason: Per Pain Protocol/Fever > 101 Hydrocodone Bitart/Acetaminophen (Hydrocodone/Apap 5/325mg Tablet) 1 tab PO Q4HP PRN PRN Reason: PAIN LEVEL 3-6 Last Admin: 06/17/21 03:46 Dose: 1 tab Documented by: Albuterol/Ipratropium (Ipratropium/Albuterol 3 Ml Ampul.Neb) 3 ml NEB Q4HP PRN PRN Reason: Shortness Of Breath Ceftriaxone Sodium (Ceftriaxone 1 Gm Vial) 1 gm IV ONCE ONE Stop: 06/17/21 07:31 Docusate Sodium (Docusate Sodium 100 Mg Capsule) 100 mg PO BID [facility] Last Admin: 06/17/21 02:30 Dose: Not Given Documented by: Enoxaparin Sodium (Enoxaparin 30 Mg/0.3 Ml Syringe) 30 mg SQ DAILY [facility] Potassium Chloride 40 meq/ (Dextrose) 520 mls @ 130 mls/hr IV UD PRN PRN Reason: Potassium < 3 Magnesium Sulfate (Magnesium Sulfate) 2 gm in 50 mls @ 50 mls/hr IV UD PRN PRN Reason: Magnesium </= 1.6 Sodium Chloride (Sodium Chloride 0.9%) 1,000 mls @ 65 mls/hr IV .[id number] ONE Stop: 06/17/21 16:59 Last Admin: 06/17/21 03:31 Dose: 65 mls/hr Documented by: Azithromycin 500 mg/ Dextrose 250 mls @ 250 mls/hr IV Q24H AARON; Protocol Stop: 06/18/21 11:59 Ceftriaxone Sodium 2 gm/ (Dextrose) 50 mls @ 100 mls/hr IV Q24H AARON; Protocol Ondansetron HCl (Ondansetron 4 Mg/2 Ml Vial) 4 mg IV Q4HP PRN PRN Reason: Nausea And Vomiting Last Admin: 06/17/21 04:25 Dose: 4 mg Documented by: Polyethylene Glycol (Polyethylene Glycol 3350 17 Gm Packet) 17 gm PO DAILYP PRN PRN Reason: Constipation Potassium Chloride (Potassium Chloride 20 Meq Tablet) 40 meq PO UD PRN PRN Reason: Potssium is 3-3.5 Potassium Chloride (Potassium Chloride 20 Meq Tablet) 40 meq PO UD PRN PRN Reason: Potassium < 3 Senna (Sennosides 1 Tablet) 2 tab PO DAILYP PRN PRN Reason: Constipation Sodium Chloride (0.9 % Sodium Chloride 10 Ml Syringe) 10 ml IV Q8 AARON Last Admin: 06/17/21 01:40 Dose: 10 ml Documented by: ABG Interpretation ABG results: 06/16/21 17:54 ABG Methemoglobin 0.3 L VBG pH 7.40 VBG pCO2 35.4 L VBG pO2 46.6 H VBG HCO3 21.4 L VBG Total CO2 22.5 L VBG O2 Saturation 78.0 H VBG Base Excess -3 L A/P Narrative A/P Narrative: A: *Pneumonia(RLL): -[id number] -elevated pct, strep neg *UTI ( ): *SIRS: *Volume depletion: improving *Metabolic acidosis: improving *probable PE: pending CTA *Malnutrition, severe, protein: Muscle and subcutaneous fat loss/diminished functional status *FTT: *mild colitis of sigmoid: of unknown significance *Ileus: *Dementia likely: *CKD III: *Chronic pain, abd/other: *COPD: *stellate lung nodule 18mm: *Tobacco abuse: *Significant peripheral arterial disease/CAROLA: *Recently on hospice: Withdrew because she did not want to go into a facility P: -Rocephin/Zithromax, pending BC -IS/Acapella, prn nebs -IVF today -Dietary consult -CTA chest to evaluate lung nodule and for PE's -monitor ileus -consider liver u/s to evaluate lesions per rads report on abd/pelvis images -PT/OT -Smoking cessation counseling > 3 minutes -CM for placement -Follow-up with Dr. Courtney for vascular disease if in line with patient/family wis hes -ppx: lovenox DNR Time Spent With Patient Time: Total time spent is greater than 50% in coordination of care (as documented) at patient's floor/unit and/or counseling patient: Total time spent with greater than 50% in coordination of care (as documented) at patient's floor/unit and/or counseling patient:: 35 - 50 minutes QUALITY VTE Deep Vein Thrombosis/Pulmonary Embolism Present on Admission: No
[2021-06-17] MEDS ORDERED: IOPAMIDOL 100 ML BOTTLE IV ONE (08:21)
[2021-06-17] MEDS ORDERED: ENOXAPARIN 30 MG/0.3 ML SYRINGE SQ SCH (09:00)
[2021-06-17] MEDS ORDERED: NICOTINE 21 MG PATCH TOPICAL SCH (10:00)
[2021-06-17] MEDS: ACETAMINOPHEN 325 MG TABLET PO PRN ×2 (10:15→15:11)
[2021-06-17] MEDS: AZITHROMYCIN 500 MG in DEXTROSE 5% IN WATER 250 ML IV SCH (10:17)
--- NOTE | 2021-06-17 10:25 | Cat Scan Report ---
CLINICAL INFORMATION: Dyspnea. Possible PE and recent abdomen CT COMPARISON: Abdomen and pelvic CT 06/16/[address] 03/05/2010. TECHNIQUE: ml of Isovue-370 were injected intravenously. Using SmartPrep to maximize pulmonary artery opacification, .625mm helical slices were obtained from the lung apices through the lung bases. Following reconstruction, 2.5 mm sagittal, coronal, and axial reformations were processed. The exam was reviewed at mediastinal, lung, and bone windows. The exam was performed using radiation dose optimization techniques including, but not limited to, automated exposure control, adjustment of the mA and/or kV according to patient size and use of iterative reconstruction technique. FINDINGS: Pulmonary parenchymal windows show severe centrilobular emphysema decreasing chronic bronchitis with elevated lung volumes wall thickening/dilatation of the bronchi. Multiple bullae have replaced most of the upper lobe parenchyma bilaterally with scattered bullae throughout the right middle and both lower lobes. Scattered fibrotic changes present throughout both mid and lower lungs. Tubular bronchiectasis involving the segmental subsegmental left lower lobe bronchi appreciated. There is a small band of honeycomb fibrosis in the peripheral posterior right lower lobe. A 12 mm nodule seen in the paramediastinal right upper lobe on image 50 was not seen on the previous exam. This is more likely granuloma rather than a malignancy. Linear fibrosis in the lung apices has progressed.. Pleural spaces are unremarkable-no effusions. Mediastinal windows show the heart is mildly enlarged with scattered calcific plaque in the coronary arteries. There is also mild calcification in the mitral valve. The ascending thoracic aorta is at upper limits of normal diameter 4 cm. Diffuse intimal thickening present in the remaining thoracic aorta. The central pulmonary arteries are mildly dilated: The main pulmonary artery diameter is 3.4 cm compatible with pulmonary hypertension related to COPD. The pulmonary arteries are [id number] evidence of PE. There does appear to be thrombus within the inferior right pulmonary veins on the base of both this study and the abdominal CT performed on the same day. Esophagus is grossly normal. There is no adenopathy in the mediastinal, hilar or axillary regions. The thyroid contains stable nodules.. An acute T11 compression fracture has resulted in 20% loss of vertebral height. Mild diffuse osteoporosis is noted. Soft tissues are unremarkable. Images through the superior abdomen show no abnormality. IMPRESSION: 1. No evidence of pulmonary embolus, however there is probable thrombus in the inferior right pulmonary veins. 2. Mild patchy airspace disease in a bandlike distribution the posterior right lower lobe. This is likely a combination of interstitial fibrosis, atelectasis and possibly developing infiltrate. 3. Severe centrilobular emphysema progressing dramatically since 2010. 4. 12 mm well-circumscribed solid nodule in the anterior segment right upper lobe. This is new from the remote CT. It is still more likely granuloma rather than a primary malignancy. Advanced age is acknowledged. If this requires further evaluation consider PET/CT. CT-guided biopsy would be considered dangerous given the severity of emphysema. 5. Mild enlargement of the central pulmonary arteries compatible with pulmonary hypertension related to COPD. 6. Mild acute T11 compression fracture with 25% loss of vertebral height. Interpreted and Authenticated by: Yomi Damico 06/17/21
--- NOTE | 2021-06-17 12:11 | Internal Med Progress Note ---
SUBJECTIVE Subjective Patient information: Note initiated : 06/17/21 at 12:07 pm Service Date, if different from initiated Date: [] Patient: Yudi Dotson a 89 y/o F admitted on 06/17/21 for Weakness, pain, failure to thrive. Chief Complaint: [] Interval history: History of present illness: Ms. Dotson is a 89 year old F Most of the history is obtained from chart and staff as patient is a poor historian and has significant hearing impairment. Sounds like she was on hospice as of 4 days ago but then was discharged from hospice because she did not want to go into the facility and want to stay home. It sounds like she been off her pain medications since then. She came in for generalized weakness nausea history of chronic pain and failure to thrive. Work-up in the ED revealed a right lower lobe pneumonia with elevated procalcitonin and leukocytosis. She was tachycardic and tachypneic. Oxygenation was okay. She did have elevated BUN/creatinine ratio. Because of her abdominal pain which seems to be chronic she did have a CT abdomen pelvis which showed some mild colitis in the sigmoid region which I am unsure of the significance of that. Also noted chest x-ray was a 18 mm solid nodule in the left upper lobe. Per PCP note she has a history of COPD chronic pain GERD irritable bowel syndrome. 5/4 Leukocytosis resolved. Pending blood urine culture sputum culture. CTA chest for questionable PE is noted on CT abdomen as well as pulmonary nodule pending. Hypophosphatemia. 5/5 On room air, afebrile. Discontinued Paredes catheter, the patient wants to go home instead of long term facility. The patient does have capacity to make medical decisions and disposition decisions. Anticipate the patient will discharged home, potentially tomorrow, however the likelihood of readmission will be high. Physical Exam Head: Atraumatic, normal inspection. Eyes: normal appearance, no scleral icterus. Neck: full ROM Respiratory: no respiratory distress. Cardiovascular: normal rate and rhythm, S1, S2. GI/Abdominal: soft, nontender, no guarding. Extremities: full range of motion, nontender. Neurological: CN II-XII intact, intact motor, intact sensation. Psychiatric: normal mood. Skin: warm, normal color Constitutional Vitals: Vital Signs Temp Pulse Resp BP Pulse Ox 99.2 F H 91 H 24 H 123/65 91 05/04/22 07:23 06/17/21 07:23 06/17/21 07:23 06/17/21 07:23 06/17/21 07:23 Period Temp Pulse Resp BP Sys/Christiansen Pulse Ox Last 24 Hr 98.3 F-99.2 F 91-105 16-32 106-154/57-121 90-96 Intake and Output 06/16/21 06/17/21 06/17/21 21:59 05:59 13:59 Intake Total 1250 Output Total 325 Balance 1250 -325 Weight 37.195 kg 37.195 kg Intake & Output: Intake & Output 06/16/21 06/17/21 06/17/21 21:59 05:59 13:59 Intake Total 1250 Output Total 325 Balance 1250 -325 Weight 37.195 kg 37.195 kg Intake: IV 1250 Sodium Chloride 0.9% 1,000 ml @ 1000 Wide Open IV BOLUS ONE Rx#: [id number] Zithromax 500 mg In Dextrose 5% 250 in Water 250 ml @ 250 mls/hr IV ONCE ONE Rx#:[id number] Output: Urine Catheter Amount 325 Other: Urine Appearance Clear Uretheral (Paredes) Clear Urine Color Pale Uretheral (Paredes) Pale OBJ DATA Labs CBC & Chem 7: 06/17/21 05:45 06/18/21 05:33 Labs: Abnormal Lab Results 06/17/21 06/17/21 06/17/21 05:45 05:45 05:45 WBC Hct MCV 102.7 H [place] # (Auto) 0.91 H Absolute Neutrophils ABG Methemoglobin VBG pCO2 VBG pO2 VBG HCO3 VBG Total CO2 VBG O2 Saturation VBG Base Excess Carboxyhemoglobin Total Hemoglobin Carbon Dioxide 21 L Anion Gap BUN 26 H Calcium 8.3 L Phosphorus 2.3 L Lactate Dehydrogenase 240 H Total Protein 5.6 L Triglycerides 153 H Procalcitonin 0.46 H Urine Appearance Urine Protein Urine Ketones Ur Leukocyte Esterase Urine RBC Urine WBC Urine Mucus POC Troponin I 06/16/21 06/16/21 06/16/21 21:00 19:35 17:54 WBC Hct MCV [place] # (Auto) Absolute Neutrophils ABG Methemoglobin 0.3 L VBG pCO2 35.4 L VBG pO2 46.6 H VBG HCO3 21.4 L VBG Total CO2 22.5 L VBG O2 Saturation 78.0 H VBG Base Excess -3 L Carboxyhemoglobin 7.8 H Total Hemoglobin 15.4 H Carbon Dioxide Anion Gap BUN Calcium Phosphorus Lactate Dehydrogenase Total Protein Triglycerides Procalcitonin Urine Appearance Hazy A Urine Protein 30 A Urine Ketones 5 A Ur Leukocyte Esterase 250 A Urine RBC 21 H Urine WBC 116 H Urine Mucus Few A POC Troponin I 0 L 06/16/21 06/16/21 06/16/21 17:14 17:14 16:14 WBC 15.6 H Hct 45.5 H MCV 101.6 H [place] # (Auto) 1.09 H Absolute Neutrophils 10.28 H ABG Methemoglobin VBG pCO2 VBG pO2 VBG HCO3 VBG Total CO2 VBG O2 Saturation VBG Base Excess Carboxyhemoglobin Total Hemoglobin Carbon Dioxide 18 L Anion Gap 17.0 H BUN 36 H Calcium Phosphorus Lactate Dehydrogenase Total Protein Triglycerides Procalcitonin 0.72 H Urine Appearance Urine Protein Urine Ketones Ur Leukocyte Esterase Urine RBC Urine WBC Urine Mucus POC Troponin I Meds: Medications Acetaminophen (Acetaminophen 325 Mg Tablet) 650 mg PO Q6HP PRN; Protocol PRN Reason: Per Pain Protocol/Fever > 101 Last Admin: 06/17/21 10:15 Dose: 650 mg Documented by: Hydrocodone Bitart/Acetaminophen (Hydrocodone/Apap 5/325mg Tablet) 1 tab PO Q4HP PRN PRN Reason: PAIN LEVEL 3-6 Last Admin: 06/17/21 10:14 Dose: 1 tab Documented by: Albuterol/Ipratropium (Ipratropium/Albuterol 3 Ml Ampul.Neb) 3 ml NEB Q4HP PRN PRN Reason: Shortness Of Breath Docusate Sodium (Docusate Sodium 100 Mg Capsule) 100 mg PO BID [facility] Last Admin: 06/17/21 10:14 Dose: 100 mg Documented by: Enoxaparin Sodium (Enoxaparin 40 Mg/0.4 Ml Syringe) 40 mg SQ BID [facility] Potassium Chloride 40 meq/ (Dextrose) 520 mls @ 130 mls/hr IV UD PRN PRN Reason: Potassium < 3 Magnesium Sulfate (Magnesium Sulfate) 2 gm in 50 mls @ 50 mls/hr IV UD PRN PRN Reason: Magnesium </= 1.6 Sodium Chloride (Sodium Chloride 0.9%) 1,000 mls @ 65 mls/hr IV .[id number] ONE Stop: 06/17/21 16:59 Last Admin: 06/17/21 03:31 Dose: 65 mls/hr Documented by: Azithromycin 500 mg/ Dextrose 250 mls @ 250 mls/hr IV Q24H AARON; Protocol Stop: 06/18/21 11:59 Last Admin: 06/17/21 10:17 Dose: 250 mls/hr Documented by: Ceftriaxone Sodium 2 gm/ (Dextrose) 50 mls @ 100 mls/hr IV Q24H AARON; Protocol Nicotine (Nicotine 21 Mg Patch) 21 mg TOPICAL DAILY@1000 [facility]ARON Last Admin: 06/17/21 10:16 Dose: 21 mg Documented by: Ondansetron HCl (Ondansetron 4 Mg/2 Ml Vial) 4 mg IV Q4HP PRN PRN Reason: Nausea And Vomiting Last Admin: 06/17/21 04:25 Dose: 4 mg Documented by: Polyethylene Glycol (Polyethylene Glycol 3350 17 Gm Packet) 17 gm PO DAILYP PRN PRN Reason: Constipation Potassium Chloride (Potassium Chloride 20 Meq Tablet) 40 meq PO UD PRN PRN Reason: Potssium is 3-3.5 Potassium Chloride (Potassium Chloride 20 Meq Tablet) 40 meq PO UD PRN PRN Reason: Potassium < 3 Senna (Sennosides 1 Tablet) 2 tab PO DAILYP PRN PRN Reason: Constipation Sodium Chloride (0.9 % Sodium Chloride 10 Ml Syringe) 10 ml IV Q8 AARON Last Admin: 06/17/21 10:13 Dose: 10 ml Documented by: ABG Interpretation ABG results: 06/16/21 17:54 ABG Methemoglobin 0.3 L VBG pH 7.40 VBG pCO2 35.4 L VBG pO2 46.6 H VBG HCO3 21.4 L VBG Total CO2 22.5 L VBG O2 Saturation 78.0 H VBG Base Excess -3 L A/P Narrative A/P Narrative: A: *Pneumonia(RLL): -MER=807 -elevated pct, strep neg *UTI ( ): *SIRS: *Volume depletion: improving *Metabolic acidosis: improving *Probable inferior right pulmonary vein thrombus *Malnutrition, severe, protein: Muscle and subcutaneous fat loss/diminished functional status *FTT: *mild colitis of sigmoid: of unknown significance *Ileus: *Probable dementia *CKD III: *Chronic pain, abd/other: *COPD: *stellate lung nodule 18mm: *Tobacco abuse: *Significant peripheral arterial disease/CAROLA: *Recently on hospice: Withdrew because she did not want to go into a facility P: -Rocephin/Zithromax. -IS/Acapella, prn nebs -Dietary consult -Lovenox 40 mg SQ BID for anticoagulation. -Monitor a bowel movement. -consider liver u/s to evaluate lesions per rads report on abd/pelvis images -PT/OT -Smoking cessation counseling > 3 minutes -CM for placement -Follow-up with Dr. Courtney for vascular disease if in line with patient/family wis hes -ppx: lovenox DNR Time Spent With Patient Time: Total time spent is greater than 50% in coordination of care (as documented) at patient's floor/unit and/or counseling patient: QUALITY VTE Deep Vein Thrombosis/Pulmonary Embolism Present on Admission: No
[2021-06-17] MEDS: ENOXAPARIN 40 MG/0.4 ML SYRINGE SQ SCH (22:36)
[2021-06-18] MEDS: HYDROcodone/APAP 5/325MG TABLET PO PRN ×5 (00:01→19:38)
[2021-06-18] MEDS: ACETAMINOPHEN 325 MG TABLET PO PRN ×2 (02:11→22:31)
[2021-06-18] MEDS: 0.9 % SODIUM CHLORIDE 10 ML SYRINGE IV SCH ×4 (04:43→21:20)
[2021-06-18 07:18] LABS: Blood Urea Nitrogen 16 mg/dL (8-23); Calcium 8.3 mg/dL (8.6-10.4); Carbon Dioxide 20 mmol/L (22-30); Chloride 107 mmol/L (96-108); Glomerular Filtration Rate 81; Glucose 87 mg/dL (70-105)
[2021-06-18] MEDS ORDERED: cefTRIAXone 2 GM VIAL ONE (08:51)
[2021-06-18] MEDS: NICOTINE 21 MG PATCH TOPICAL SCH ×2 (08:57→09:25)
[2021-06-18] MEDS: DOCUSATE SODIUM 100 MG CAPSULE PO SCH ×2 (08:58→19:33)
[2021-06-18] MEDS: cefTRIAXone 2 GM in DEXTROSE 5% IN WATER 50 ML IV SCH (08:59)
[2021-06-18] MEDS: ENOXAPARIN 40 MG/0.4 ML SYRINGE SQ SCH ×2 (08:59→19:33)
[2021-06-18] MEDS: POLYETHYLENE GLYCOL 3350 17 GM PACKET PO PRN (09:19)
[2021-06-18] MEDS: SENNOSIDES 1 TABLET PO PRN (09:19)
[2021-06-18] MEDS: AZITHROMYCIN 500 MG in DEXTROSE 5% IN WATER 250 ML IV SCH (11:10)
[2021-06-18] MEDS: SIMETHICONE 80 MG TAB.CHEW CHEWED PRN ×2 (19:33→22:30)
[2021-06-19] MEDS: HYDROcodone/APAP 5/325MG TABLET PO PRN ×3 (00:27→10:14)
[2021-06-19] MEDS: SIMETHICONE 80 MG TAB.CHEW CHEWED PRN (03:29)
[2021-06-19] MEDS: 0.9 % SODIUM CHLORIDE 10 ML SYRINGE IV SCH ×2 (06:00→06:04)
--- NOTE | 2021-06-19 06:18 | EKG ---
[facility] Test Date: 2021-06-16 Pat Name: Yudi Dotson Department: ED Room: Gender: Female Sound Assistant: SB : [id number] Requested By: Jovani Dominguez Order Number: [id number] Reading MD: Kumar Nance Measurements Intervals [place] Rate: 107 P: 83 WV: 166 QRS: 60 QRSD: 86 T: 29 QT: 357 QTc: 477 Interpretive Statements Sinus tachycardia Multiform ventricular premature complexes Electronically Signed On 06-19-2021 6:18:31 PDT by Kumar Nance /store/[email or web address]/[id number]
[2021-06-19] MEDS: SENNOSIDES 1 TABLET PO PRN (08:06)
[2021-06-19] MEDS: DOCUSATE SODIUM 100 MG CAPSULE PO SCH (08:07)
[2021-06-19] MEDS: POLYETHYLENE GLYCOL 3350 17 GM PACKET PO PRN (08:07)
[2021-06-19] MEDS: cefTRIAXone 2 GM in DEXTROSE 5% IN WATER 50 ML IV SCH (08:08)
[2021-06-19] MEDS: ENOXAPARIN 40 MG/0.4 ML SYRINGE SQ SCH (08:08)
[2021-06-19] MEDS: NICOTINE 21 MG PATCH TOPICAL SCH (10:17)
--- NOTE | 2021-06-19 10:37 | Discharge Summary ---
Discharge Provider Provider Patient information: Note initiated : 06/19/21 at 10:35 am Service Date, if different from initiated Date: [] Patient: Yudi Dotson 89 y/o F admitted on 06/17/21 for Weakness, pain, failure to thrive. Chief Complaint: [] Date of admission: 06/17/21 01:30 Discharge date: 06/19/21 Primary care physician: Other Provider Consults: 06/16/21 Consult to Physician [CONS] Stat Comment: Consulting Provider: Bhaskar Chen Reason For Exam: Physician to Consult Discharge Meds Discharge Medications Home Medications ibuprofen PO 07/29/14 [History Confirmed 10/23/20 Last Taken Unknown] diaper,brief,adult,disposable (Depend Underwear For Women Lr) #120 each 07/08/15 [Rx Confirmed 10/23/20 Last Taken Unknown] toilet seat riser #1 ea 04/20/17 [Rx Confirmed 10/23/20 Last Taken Unknown] home oxygen #1 ea 08/24/17 [Rx Confirmed 10/23/20 Last Taken Unknown] Handicap Placard See Rx Instructions .ROUTE .COMPLEX #2 12/21/17 [Rx Confirmed 10/23/20 Last Taken Unknown] simethicone 125 mg capsule (Gas Relief Extra Strength) 125 mg PO .COMPLEX PRN 09/12/19 [History Confirmed 10/23/20 Last Taken Unknown] polyethylene glycol 3350 17 gram oral powder packet 17 g PO QDAY #30 each 10/23/19 [Rx Confirmed 10/23/20 Last Taken Unknown] 3x3 foam dressing #10 each 11/28/19 [Rx Confirmed 10/23/20 Last Taken Unknown] Commode #1 ea 12/20/19 [Rx Confirmed 10/23/20 Last Taken Unknown] magnesium citrate 125 mg capsule 125 mg PO QHS #7 cap 07/11/20 [Rx Confirmed 10/23/20 Last Taken Unknown] albuterol sulfate 2.5 mg (3 mL) INHALATION Q4H PRN #540 ml 08/19/20 [Rx Confirmed 10/23/20 Last Taken Unknown] fluticasone furoate 200 mcg-vilanterol 25 mcg/dose inhalation powder (Breo Ellipta) 1 inh INHALATION Q24H #1 device 09/01/20 [Rx Confirmed 10/23/20 Last Taken Unknown] fluticasone propionate 50 mcg/actuation nasal spray,suspension 2 spray INTRANASAL BID #16 g 09/01/20 [Rx Confirmed 10/23/20 Last Taken Unknown] Ventolin HFA 90 mcg/actuation aerosol inhaler (albuterol sulfate) See Rx Instructions .ROUTE .COMPLEX #18 gram NS 09/29/20 [Rx Confirmed 10/23/20 Last Taken Unknown] hydrocodone 10 mg-acetaminophen 325 mg tablet 1 tab PO Q4H PRN #168 tab 10/06/20 [Rx Confirmed 10/23/20 Last Taken Unknown] apixaban 5 mg tablet (Eliquis) 5 mg PO BID 90 Days #180 tab 06/19/21 [Rx Last Taken Unknown] hydrocodone 5 mg-acetaminophen 325 mg tablet 1 tab PO Q4H PRN #14 tab 06/19/21 [Rx Last Taken Unknown] levofloxacin 750 mg tablet 750 mg PO QDAY 7 Days #7 tab 06/19/21 [Rx Last Taken Unknown] COURSE Hospital Course Hospital course: Ms. Dotson is a 89 year old F Most of the history is obtained from chart and staff as patient is a poor historian and has significant hearing impairment. Sounds like she was on hospice as of 4 days ago but then was discharged from hospice because she did not want to go into the facility and want to stay home. It sounds like she been off her pain medications since then. She came in for generalized weakness nausea history of chronic pain and failure to thrive. Work-up in the ED revealed a right lower lobe pneumonia with elevated procalcitonin and leukocytosis. She was tachycardic and tachypneic. Oxygenation was okay. She did have elevated BUN/creatinine ratio. Because of her abdominal pain which seems to be chronic she did have a CT abdomen pelvis which showed some mild colitis in the sigmoid region which I am unsure of the significance of that. Also noted chest x-ray was a 18 mm solid nodule in the left upper lobe. Per PCP note she has a history of COPD chronic pain GERD irritable bowel syndrome. 5/4 Leukocytosis resolved. Pending blood urine culture sputum culture. CTA chest for questionable PE is noted on CT abdomen as well as pulmonary nodule pending. Hypophosphatemia. 5/5 On room air, afebrile. Discontinued Paredes catheter, the patient wants to go home instead of correction facility. The patient does have capacity to make medical decisions and disposition decisions. Anticipate the patient will discharged home, potentially tomorrow, however the likelihood of readmission will be high. 5/6 Discharged to home with home health, both sputum and urine cultures grew Pseudomonas sensitive to levofloxacin. 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 Provided a prescription for [place] at discharge with no refills. The patient will need to establish with a primary care provider for further pain management. I discussed the high risk of admission once again with the patient however she once again refused to consider hospice, prefers to discharge to home. Physical Exam Head: Atraumatic, normal inspection. Eyes: normal appearance, no scleral icterus. Neck: full ROM Respiratory: no respiratory distress. Cardiovascular: normal rate and rhythm, S1, S2. GI/Abdominal: soft, nontender, no guarding. Extremities: full range of motion, nontender. Neurological: CN II-XII intact, intact motor, intact sensation. Psychiatric: normal mood. Skin: warm, normal color Discharge diagnosis: Sepsis secondary to pneumonia and UTI secondary to Pseudomonas Time Spent with Patient Time attestation: Total time spent providing and/or coordinating discharge services: 40 minutes EXAM Constitutional Vitals: Temp Pulse Resp BP Pulse Ox 97 F 101 H 18 132/84 96 06/19/21 06:48 06/19/21 03:25 06/19/21 06:48 06/19/21 06:48 06/19/21 06:48 Discharge Data Data Completed and Pending Labs on day of discharge: Preliminary micro results at discharge 06/16/21 17:35 Blood Culture - Preliminary Blood 06/16/21 17:30 Blood Culture - Preliminary Blood Discharge Plan Patient/Caregiver Discharge Instructions Activity: increase activity as tolerated Diet: Regular Diet Prescriptions: New hydrocodone-acetaminophen 5-325 mg tablet 1 tab PO Q4H PRN (Reason: pain) Qty: 14 0RF levofloxacin 750 mg tablet 750 mg PO QDAY 7 Days Qty: 7 0RF Eliquis 5 mg tablet 5 mg PO BID 90 Days Qty: 180 0RF Continued Handicap Placard See Rx Instructions .ROUTE .COMPLEX Qty: 2 0RF Dose Instruction: As directed ; Rx Instructions: As directed ; polyethylene glycol 3350 17 gram powder in packet 17 g PO QDAY Qty: 30 5RF Rx Instructions: mix into 4-8 oz. of any hot/cold/room temp. beverage; use immediately (DME) 3x3 foam dressing Qty: 10 3RF Rx Instructions: As directed albuterol sulfate 2.5 mg /3 mL (0.083 %) solution for nebulization 2.5 mg INHALATION Q4H PRN (Reason: shortness of breath) Qty: 540 2RF fluticasone propionate 50 mcg/actuation spray,suspension 2 spray INTRANASAL BID Qty: 16 2RF Label Comments: For 30 days Breo Ellipta 200-25 mcg/dose blister with device 1 inh INHALATION Q24H Qty: 1 5RF Rx Instructions: after inhalation, rinse mouth with water and spit out; do not swallow albuterol sulfate [Ventolin HFA] 90 mcg/actuation HFA aerosol inhaler See Rx Instructions .ROUTE .COMPLEX Qty: 18 5RF Dose Instruction: USE WITH 2 PUFFS INHALATION EVERY 6 HOURS * ADMINISTER WITH SPACER Rx Instructions: USE WITH 2 PUFFS INHALATION EVERY 6 HOURS * ADMINISTER WITH SPACER hydrocodone-acetaminophen 10-325 mg tablet 1 tab PO Q4H PRN (Reason: pain) Qty: 168 0RF Hold Instructions: Doctor's Order Rx Instructions: 28 day script Max 6/Day ibuprofen PO 0RF simethicone [Gas Relief Extra Strength] 125 mg capsule 125 mg PO .COMPLEX PRN0RF Rx Instructions: 125 mg PO PRN; magnesium citrate 125 mg capsule 125 mg PO QHS Qty: 7 0RF Discontinued cephalexin 500 mg capsule 500 mg PO BID Qty: 20 0RF No Action (DME) diaper,brief,adult,disposable [[facility]rg] [facility] See Dose Instructions .ROUTE .MEDSUPPLY Qty: 120 0RF Dose Instruction: As directed Rx Instructions: As directed (DME) toilet seat riser Qty: 1 0RF Dose Instruction: As directed Rx Instructions: As directed (DME) Commode Qty: 1 0RF Rx Instructions: As directed (DME) home oxygen Qty: 1 0RF Dose Instruction: As directed Rx Instructions: As directed Other Ambulatory Orders: Wound Care/Dressings (Daily) Location: None Selected Ordered By: Rosalio Corley Follow Up Plan Follow up with: Provider,Other [Primary Care Provider] - Patient Disposition: Home Health Service Overall status at discharge: patient is progressing back to baseline Discharge Orders: Discharge Order (Routine); Ordered 06/19/21 Ordered By: Rosalio VASQUEZ VTE Deep Vein Thrombosis/Pulmonary Embolism Present on Admission: No
[2021-06-19] MEDS: ONDANSETRON 4 MG/2 ML VIAL IV PRN (10:51)
== END 2021-06-19 11:50 | disposition home health service (06) | DRG 871 ==
LOC: ED 16:45 → MEDSUR 06-17 01:30
PROVIDERS: ADMIT Internal Medicine; ATTEND Internal Medicine

== ENCOUNTER 2021-08-15 18:44 | Inpatient (IN) ==
--- NOTE | 2021-08-15 19:01 | Emergency Department Note ---
SOB HPI General Chief Complaint: Shortness of Breath/Dyspnea Stated Complaint: sob Time Seen by Provider: 08/15/21 18:46 Source: patient and EMS Mode of arrival: EMS History of Present Illness HPI Narrative: Narrative: 89-year-old female with a history of pneumonia, constipation, lung mass, COPD, migraines, gastritis, lumbar radiculopathy, GERD, hyperlipidemia presents the ER to be evaluated for shortness of breath. She was admitted for pneumonia in June. She has had increasing shortness of breath at home. She does wear oxygen at h ome but does not know how much. She says its been getting worse over the last few days. She was evaluated by EMS for oxygen saturation was 88 on room air. They put her on oxygen and it came up. She states she is felt hot at home and endorses subjective fever, chills, purulent sputum, weakness, cough and chest pain with cough. She denies chest pressure. She states she is always constipated. She has no other acute complaints at this time. Related Data Home Medications Medication Instructions Recorded Confirmed ibuprofen PO 07/29/14 10/23/20 simethicone 125 mg capsule (Gas 125 mg PO .COMPLEX PRN 09/12/19 10/23/20 Relief Extra Strength) hydrocodone 10 mg-acetaminophen 1 tab PO TID PRN 08/15/21 08/15/21 325 mg tablet Previous Rx's Medication Instructions Recorded diaper,brief,adult,disposable #120 each 07/08/15 (Depend Underwear For Women Lrg) toilet seat riser #1 ea 04/20/17 home oxygen #1 ea 08/24/17 Handicap Placard See Rx Instructions .ROUTE 12/21/17 .COMPLEX #2 polyethylene glycol 3350 17 gram 17 g PO QDAY #30 each 10/23/19 oral powder packet 3x3 foam dressing #10 each 11/28/19 Commode #1 ea 12/20/19 magnesium citrate 125 mg capsule 125 mg PO QHS #7 cap 07/11/20 albuterol sulfate 2.5 mg (3 mL) INHALATION Q4H PRN 08/19/20 #540 ml fluticasone furoate 200 1 inh INHALATION Q24H #1 device 09/01/20 mcg-vilanterol 25 mcg/dose inhalation powder (Breo Ellipta) fluticasone propionate 50 2 spray INTRANASAL BID #16 g 09/01/20 mcg/actuation nasal spray,suspension Ventolin HFA 90 mcg/actuation See Rx Instructions .ROUTE 09/29/20 aerosol inhaler (albuterol sulfate) .COMPLEX #18 gram NS apixaban 5 mg tablet (Eliquis) 5 mg PO BID 90 Days #180 tab 06/19/21 Allergies Allergy/AdvReac Type Severity Reaction Status Date / Time Sulfa (Sulfonamide Allergy Unknown Unknown Verified 07/05/21 14:22 Antibiotics) Review of Systems ROS ROS Narrative: Narrative: All systems ED: reviewed and negative except as stated. [facility] Narrative Patient History Narrative: Narrative: Medical/Surgical/Family History All Active Problems (Updated 08/15/21 @ 20:03 by Domenic Saucedo PA-C) Fungal infection of skin (Acute) Constipation (Acute) Pressure ulcer of back (Acute) Pneumonia (Acute) Colitis (Acute) Lung mass (Acute) Chronic pain (Acute) Low back pain (Acute) Pneumonia (Acute) Excessive cerumen in left ear canal (Acute) Cellulitis of earlobe (Acute) Medicare annual wellness visit, initial (Acute) Migraines (Acute) Joint pain (Acute) Muscle pain (Acute) History of colonoscopy (Acute ~2013) Chronic abdominal pain (Acute) Sinusitis, acute (Acute) Sinus pressure (Acute) Urinary tract infection (Acute) 23-polyvalent pneumococcal polysaccharide vaccine declined (Chronic) Acute exacerbation of chronic obstructive airways disease (Acute) Lumbar radiculopathy (Chronic) Encounter for medication refill (Acute) Geriatric health maintenance (Acute) Wrist pain (Chronic 05/22/14) Weight loss (Chronic 05/22/14) Thyroid mass (Chronic 05/22/14) Osteoporosis (Chronic 03/22/14) Meniere's disease (Chronic) Melanoma of skin (Chronic) Irritable bowel syndrome (Chronic) Hyperlipidemia (Chronic) External hemorrhoids (Chronic) Gastroesophageal reflux (Chronic) Uterine fibroid (Chronic) Degeneration of lumbosacral intervertebral disc (Chronic) Constipation (Chronic) Chronic back pain (Chronic) Chronic obstructive pulmonary disease (Chronic) Medical History 23-polyvalent pneumococcal polysaccharide vaccine declined Acute exacerbation of chronic obstructive airways disease Cellulitis of earlobe Chronic back pain Back Chronic obstructive pulmonary disease Constipation Degeneration of lumbosacral intervertebral disc Encounter for medication refill Excessive cerumen in left ear canal External hemorrhoids Gastritis Gastroesophageal reflux Hyperlipidemia Irritable bowel syndrome Joint pain Lumbar radiculopathy Medicare annual wellness visit, initial Melanoma of skin Removed 2002 Meniere's disease Migraines Muscle pain Osteoporosis (03/22/14) Thyroid mass (05/22/14) Uterine fibroid Weight loss (05/22/14) Wrist pain (05/22/14) Surgical History History of colonoscopy (~2013) History of hemorrhoidectomy History of malignant neoplasm of skin Family History Unknown Alcohol abuse Family history of chronic pain Cardiac disease Essential hypertension Osteoarthritis Social History Smoking Status: Current every day smoker Alcohol Intake Frequency: a few times a month Substance Use: does not use Exam Narrative Narrative: Narrative: Gen: Patient has increased respiratory effort but is in no distress, patient is cachectic Eyes: PERRL, no conjunctival injection , and symmetrical lids. Sclerae non icteric HENMT: Normocephalic Atraumatic head, external nose and ears. Moist MM. CVS: +S1/S2, No murmurs or gallops. Radial pulses 2+ and equal bilat. No swelling RESP: Tachypnea at a rate of 26. Clear to auscultation bilaterally (CTAB). No significant wheezing or air trapping noted GI: Mildly distended but nontender abdomen with no guarding or rigidity MSK: Extremities w/o deformity or ttp. No cyanosis or clubbing. Skin: Warm, Dry . No rashes or lesions . Cap refill less than 2. Psych: Awake, Alert, & Oriented (AAO) x3. Appropriate mood and affect . Course Vital Signs Vital signs: Vital Signs Temperature 97.8 F 08/15/21 18:45 Pulse Rate 86 08/15/21 18:45 Respiratory Rate 26 H 08/15/21 18:45 Blood Pressure 138/87 08/15/21 18:45 Pulse Oximetry (%) 93 08/15/21 18:45 Temperature 97.8 F 08/15/21 19:55 Pulse Rate 94 H 08/15/21 19:55 Respiratory Rate 24 H 08/15/21 19:55 Blood Pressure 143/72 08/15/21 19:55 Pulse Oximetry (%) 96 08/15/21 19:55 MDM MDM Narrative Medical decision making narrative: Narrative: Patient had oxygen saturations of 88 when picked up by EMS she was placed on 1 L via nasal cannula and came up to the low 90s. She is tachypneic at a rate of 26. She is cachectic and short of breath and increased work of breathing. She has no significant wheezing or air trapping noted. She will be evaluated with chest x-ray, EKG, CBC, Chem-8, CG 4, hepatic panel and troponin. CBC: Anemia, no significant white count Chem-8: Elevated BUN, decreased hematocrit Hepatic panel: CG 4: Normal lactate, no acidosis Troponin: Normal Procalcitonin: EKG: Normal sinus rhythm at a rate of 95 bpm with nonspecific T wave abnormality lateral leads with possible inversion otherwise no evidence of acute ischemia at this time. Normal axis, normal NE and QTc Chest x-ray: Patient has x-ray that suggest right lower lobe pneumonia Patient has increased respiratory effort, tachypnea and x-ray suggestive of right lower lobe pneumonia. She was given Rocephin and azithromycin empirically for community-acquired pneumonia. Hospitalist will be consulted for admission. Dr Duong: Graciously agreed to evaluate the patient and admit her for further evaluation. Lab Data Result diagrams: 08/15/21 19:24 Labs: Lab Results 08/15/21 08/15/21 08/15/21 Range/Units 19:24 19:24 19:25 WBC 8.2 (4.5-11.0) K/mcL RBC 2.96 L (3.59-5.38) M/mcL Hgb 9.1 L (11.2-15.7) g/dL Hct 29.9 L (34.1-44.9) % POC Hct 29.0 L (36-48) MCV 101.0 H (80.0-100.0) fL MCH 30.7 (26.0-34.0) pg MCHC 30.4 L (31.0-36.0) g/dL RDW 15.1 H (11.5-14.5) % Plt Count 211 (140-440) K/mcL MPV 9.9 (7.4-10.4) fL Immature Gran % (Auto) 0.4 (0.0-0.5) % Neut % (Auto) 74.2 (38.0-78.0) % Lymph % (Auto) 16.7 (15.5-49.0) % [place] % (Auto) 6.8 (1.0-12.0) % Eos % (Auto) 1.3 (0.0-7.0) % Baso % (Auto) 0.6 (0.0-2.0) % Lymph # (Auto) 1.37 L (1.50-4.80) K/mcL [place] # (Auto) 0.56 (0.10-0.90) K/mcL Eos # (Auto) 0.11 (0.00-0.70) K/mcL Baso # (Auto) 0.05 (0.00-0.30) K/mcL Immature Gran # 0.03 (0.00-0.05) K/mcl Absolute Neutrophils 6.09 (1.80-8.00) K/mcL POC VBG pH 7.39 (7.32-7.42) POC VBG pCO2 at Temp 32.8 L (41-51) POC VBG pO2 33 (25-40) POC VBG HCO3 19.7 L (24-28) POC VBG Total CO2 21.0 L (25-29) POC Venous O2 Sat 65.0 (40-70) POC VBG Base Excess -5.0 L (-2-2) POC Sodium 142 (133-145) POC Potassium 3.2 L (3.3-5.1) POC Chloride 110 H (96-108) POC Total CO2 20.0 L (22-30) POC BUN 29 H (6-20) POC Creatinine 0.7 (0.6-1.2) POC Glucose 145 H (70-105) POC Venous Lactate 1.1 (0.5-2) POC WB Ioniz Calcium 1.23 (1.16-1.32) POC Troponin I (0.02-0.08) 08/15/21 Range/Units 19:29 WBC (4.5-11.0) K/mcL RBC (3.59-5.38) M/mcL Hgb (11.2-15.7) g/dL Hct (34.1-44.9) % POC Hct (36-48) MCV (80.0-100.0) fL MCH (26.0-34.0) pg MCHC (31.0-36.0) g/dL RDW (11.5-14.5) % Plt Count (140-440) K/mcL MPV (7.4-10.4) fL Immature Gran % (Auto) (0.0-0.5) % Neut % (Auto) (38.0-78.0) % Lymph % (Auto) (15.5-49.0) % [place] % (Auto) (1.0-12.0) % Eos % (Auto) (0.0-7.0) % Baso % (Auto) (0.0-2.0) % Lymph # (Auto) (1.50-4.80) K/mcL [place] # (Auto) (0.10-0.90) K/mcL Eos # (Auto) (0.00-0.70) K/mcL Baso # (Auto) (0.00-0.30) K/mcL Immature Gran # (0.00-0.05) K/mcl Absolute Neutrophils (1.80-8.00) K/mcL POC VBG pH (7.32-7.42) POC VBG pCO2 at Temp (41-51) POC VBG pO2 (25-40) POC VBG HCO3 (24-28) POC VBG Total CO2 (25-29) POC Venous O2 Sat (40-70) POC VBG Base Excess (-2-2) POC Sodium (133-145) POC Potassium (3.3-5.1) POC Chloride (96-108) POC Total CO2 (22-30) POC BUN (6-20) POC Creatinine (0.6-1.2) POC Glucose (70-105) POC Venous Lactate (0.5-2) POC WB Ioniz Calcium (1.16-1.32) POC Troponin I 0.01 L (0.02-0.08) ED POC Tests ED POC Tests: JOESPH - SARS Antigen Negative Discharge Plan Patient/Caregiver Discharge Instructions Pt seen by DIRECTOR OF TEENAGE ACTIVITIES/PA only: Yes Clinical Impression: Pneumonia Patient Disposition: Xfer As Inpt ([facility]) Follow up with: Provider,Other [Primary Care Provider] - Prescriptions: No Action (DME) diaper,brief,adult,disposable [Depend Underwear For Women Lrg] [facility] [place] Dose Instructions .ROUTE .MEDSUPPLY Qty: 120 0RF Dose Instruction: As directed Rx Instructions: As directed (DME) toilet seat riser Qty: 1 0RF Dose Instruction: As directed Rx Instructions: As directed Handicap Placard See Rx Instructions .ROUTE .COMPLEX Qty: 2 0RF Dose Instruction: As directed ; Rx Instructions: As directed ; polyethylene glycol 3350 17 gram powder in packet 17 g PO QDAY Qty: 30 5RF Rx Instructions: mix into 4-8 oz. of any hot/cold/room temp. beverage; use immediately (DME) 3x3 foam dressing Qty: 10 3RF Rx Instructions: As directed (DME) Commode Qty: 1 0RF Rx Instructions: As directed albuterol sulfate 2.5 mg /3 mL (0.083 %) solution for nebulization 2.5 mg INHALATION Q4H PRN (Reason: shortness of breath) Qty: 540 2RF fluticasone propionate 50 mcg/actuation spray,suspension 2 spray INTRANASAL BID Qty: 16 2RF Label Comments: For 30 days Breo Ellipta 200-25 mcg/dose blister with device 1 inh INHALATION Q24H Qty: 1 5RF Rx Instructions: after inhalation, rinse mouth with water and spit out; do not swallow albuterol sulfate [Ventolin HFA] 90 mcg/actuation HFA aerosol inhaler See Rx Instructions .ROUTE .COMPLEX Qty: 18 5RF Dose Instruction: USE WITH 2 PUFFS INHALATION EVERY 6 HOURS * ADMINISTER WITH SPACER Rx Instructions: USE WITH 2 PUFFS INHALATION EVERY 6 HOURS * ADMINISTER WITH SPACER ibuprofen PO 0RF simethicone [Gas Relief Extra Strength] 125 mg capsule 125 mg PO .COMPLEX PRN0RF Rx Instructions: 125 mg PO PRN; (DME) home oxygen Qty: 1 0RF Dose Instruction: As directed Rx Instructions: As directed magnesium citrate 125 mg capsule 125 mg PO QHS Qty: 7 0RF Eliquis 5 mg tablet 5 mg PO BID 90 Days Qty: 180 0RF hydrocodone-acetaminophen 10-325 mg tablet 1 tab PO TID PRN (Reason: Pain) 0RF Rx Instructions: 28 day script Max 6/Day
[2021-08-15] MEDS ORDERED: AZITHROMYCIN 500 MG in DEXTROSE 5% IN WATER 250 ML IV ONE (19:17)
[2021-08-15] MEDS ORDERED: cefTRIAXone 1 GM VIAL IV ONE (19:17)
[2021-08-15 19:27] LABS: POC Calcium, Ionized 1.23 (1.16-1.32); POC Creatinine 0.7 (0.6-1.2); POC Potassium 3.2 (3.3-5.1)
[2021-08-15 19:54] LABS: Basophils # (Auto) 0.05 K/mcL (0.00-0.30); Basophils % (Auto) 0.6 % (0.0-2.0); Eosinophils # (Auto) 0.11 K/mcL (0.00-0.70); Eosinophils % (Auto) 1.3 % (0.0-7.0); Hematocrit 29.9 % (34.1-44.9); Hemoglobin 9.1 g/dL (11.2-15.7); Lymphocytes # (Auto) 1.37 K/mcL (1.50-4.80); Lymphocytes % (Auto) 16.7 % (15.5-49.0); Mean Corpuscular HGB Conc 30.4 g/dL (31.0-36.0); Mean Platelet Volume 9.9 fL (7.4-10.4); Monocytes # (Auto) 0.56 K/mcL (0.10-0.90); Monocytes % (Auto) 6.8 % (1.0-12.0); Neutrophils % (Auto) 74.2 % (38.0-78.0); Platelet Count 211 K/mcL (140-440); RBC 2.96 M/mcL (3.59-5.38); Red Cell Distribution Width 15.1 % (11.5-14.5); WBC 8.2 K/mcL (4.5-11.0)
[2021-08-15] MEDS ORDERED: PROMETHAZINE 25 MG/ML VIAL IV ONE (20:09)
[2021-08-15 20:16] LABS: ALT/SGPT 9 U/L (<40); AST/SGOT 15 U/L (<32); Albumin 3.4 gm/dL (3.2-5.2); Alkaline Phosphatase 62 U/L (39-117); Bilirubin,Direct < 0.2 mg/dL (0-0.3); Bilirubin,Total < 0.2 mg/dL (0.1-1.0); Globulin 2.2 gm/dL (2.2-3.7)
--- NOTE | 2021-08-15 20:31 | Internal Med History&Physical ---
HPI History of Present Illness Patient information: Note initiated : 08/15/21 at 8:27 pm Service Date, if different from initiated Date: [] Patient: Yudi Dotson a 89 y/o F admitted on for sob. Chief Complaint: [shortness of breath] Chief complaint: shortness of breath History of present illness: Ms. Dotson is a 89 year old F history of COPD, recently admitted to our facility 2 months ago for pneumonia, presenting with 2 months history of progressive shortness of breath. Patient claims that she has been feeling shortness of breath getting progressively worse since last admissions. She is also committing of productive cough with clear sputum. She is coming of subjective fever and chills. She is coming of general body weakness. She is complaining of chest pain whenever she coughs. She denies respiratory wheezings. She is also complaining of nausea but denies any vomiting. She stated that she does not use oxygen at home. Vital signs significant for tachypnea with rate of breathing in the mid 20s. Labs significant for lack of leukocytosis with WBC 8.2. Lactic acid pending. Procalcitonin pending. COVID screening pending. Chest x-ray showing infiltrate right lung base suggestive of bacterial pneumo deyanira. Constitutional Constitutional: Present chills, fever(s) and weakness; Absent excessive sweating or fatigue EENT Eyes: Absent blurry vision, change in vision, loss of vision or other visual disturbances Ears: Absent decreased hearing or tinnitus Nose, mouth and throat: Absent abnormal hearing, dry mouth, headache(s), nasal congestion or sore throat Cardiovascular Cardiovascular: Absent chest pain, chest pain at rest, edema, irregular heart rhythm or palpatations Respiratory Respiratory: Present cough, dyspnea and excessive phlegm production; Absent wheezing Gastrointestinal Gastrointestinal: Present nausea; Absent abdominal pain, constipation, diarrhea or vomiting Musculoskeletal Musculoskeletal: Absent back pain, deformity, limited range of motion, muscle cramps, muscle weakness or numbness Integumentary Integumentary: Absent lesions, rash or wounds Neurological Neurological: Absent focal weakness, headache(s) or numbness Psychiatric Psychiatric: Absent anxiety, depression or hallucinations PFSH PFSH All Active Problems (Updated 08/15/21 @ 20:03 by Domenic Saucedo PA-C) Fungal infection of skin (Acute) Constipation (Acute) Pressure ulcer of back (Acute) Pneumonia (Acute) Colitis (Acute) Lung mass (Acute) Chronic pain (Acute) Low back pain (Acute) Pneumonia (Acute) Excessive cerumen in left ear canal (Acute) Cellulitis of earlobe (Acute) Medicare annual wellness visit, initial (Acute) Migraines (Acute) Joint pain (Acute) Muscle pain (Acute) History of colonoscopy (Acute ~2013) Chronic abdominal pain (Acute) Sinusitis, acute (Acute) Sinus pressure (Acute) Urinary tract infection (Acute) 23-polyvalent pneumococcal polysaccharide vaccine declined (Chronic) Acute exacerbation of chronic obstructive airways disease (Acute) Lumbar radiculopathy (Chronic) Encounter for medication refill (Acute) Geriatric health maintenance (Acute) Wrist pain (Chronic 05/22/14) Weight loss (Chronic 05/22/14) Thyroid mass (Chronic 05/22/14) Osteoporosis (Chronic 03/22/14) Meniere's disease (Chronic) Melanoma of skin (Chronic) Irritable bowel syndrome (Chronic) Hyperlipidemia (Chronic) External hemorrhoids (Chronic) Gastroesophageal reflux (Chronic) Uterine fibroid (Chronic) Degeneration of lumbosacral intervertebral disc (Chronic) Constipation (Chronic) Chronic back pain (Chronic) Chronic obstructive pulmonary disease (Chronic) Medical History 23-polyvalent pneumococcal polysaccharide vaccine declined Acute exacerbation of chronic obstructive airways disease Cellulitis of earlobe Chronic back pain Back Chronic obstructive pulmonary disease Constipation Degeneration of lumbosacral intervertebral disc Encounter for medication refill Excessive cerumen in left ear canal External hemorrhoids Gastritis Gastroesophageal reflux Hyperlipidemia Irritable bowel syndrome Joint pain Lumbar radiculopathy Medicare annual wellness visit, initial Melanoma of skin Removed 2002 Meniere's disease Migraines Muscle pain Osteoporosis (03/22/14) Thyroid mass (05/22/14) Uterine fibroid Weight loss (05/22/14) Wrist pain (05/22/14) Surgical History History of colonoscopy (~2013) History of hemorrhoidectomy History of malignant neoplasm of skin Family History Unknown Alcohol abuse Family history of chronic pain Cardiac disease Essential hypertension Osteoarthritis Social History marital status: occupational status: 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 other: 7 Children, 1 diseaced from lymphoma, 4 grandchildren, 3 great granchildren smoking status: Current every day smoker tobacco type: cigarettes per day: 20 quit status: not considering quitting alcohol intake frequency: a few times a month substance use type: does not use MEDS/ALLERGIES Home Medications and Allergies Home Medications Medication Instructions Recorded Confirmed Type ibuprofen PO 07/29/14 10/23/20 History diaper,brief,adult,disposable #120 each 07/08/15 08/15/21 Rx (Depend Underwear [employer]) toilet seat riser #1 ea 04/20/17 08/15/21 Rx home oxygen #1 ea 08/24/17 08/15/21 Rx Handicap Placard See Rx Instructions .ROUTE 12/21/17 08/15/21 Rx .COMPLEX #2 simethicone 125 mg capsule (Gas 125 mg PO .COMPLEX PRN 09/12/19 10/23/20 History Relief Extra Strength) polyethylene glycol 3350 17 gram 17 g PO QDAY #30 each 10/23/19 10/23/20 Rx oral powder packet 3x3 foam dressing #10 each 11/28/19 08/15/21 Rx Commode #1 ea 12/20/19 08/15/21 Rx magnesium citrate 125 mg capsule 125 mg PO QHS #7 cap 07/11/20 10/23/20 Rx albuterol sulfate 2.5 mg (3 mL) INHALATION Q4H PRN 08/19/20 08/15/21 Rx #540 ml fluticasone furoate 200 1 inh INHALATION Q24H #1 device 09/01/20 10/23/20 Rx mcg-vilanterol 25 mcg/dose inhalation powder (Breo Ellipta) fluticasone propionate 50 2 spray INTRANASAL BID #16 g 09/01/20 08/15/21 Rx mcg/actuation nasal spray,suspension Ventolin HFA 90 mcg/actuation See Rx Instructions .ROUTE 09/29/20 10/23/20 Rx aerosol inhaler (albuterol sulfate) .COMPLEX #18 gram NS apixaban 5 mg tablet (Eliquis) 5 mg PO BID 90 Days #180 tab 06/19/21 Rx hydrocodone 10 mg-acetaminophen 1 tab PO TID PRN 08/15/21 08/15/21 History 325 mg tablet Allergies Allergy/AdvReac Type Severity Reaction Status Date / Time Sulfa (Sulfonamide Allergy Unknown Unknown Verified 07/05/21 14:22 Antibiotics) EXAM Constitutional Vitals: Temp Pulse Resp BP Pulse Ox 36.6 C 94 H 24 H 143/72 96 08/15/21 19:55 08/15/21 19:55 08/15/21 19:55 08/15/21 19:55 08/15/21 19:55 General appearance: cooperative and no acute distress Head Head exam: Present atraumatic and normocephalic Eye Eye exam: Present EOMI and PERRL ENT ENT exam: Present mucous membranes moist and normal external ear exam; Absent normal exam Additional comments: Bilateral hard of hearing Neck Neck exam: Present normal inspection; Absent lymphadenopathy, tenderness or thyromegaly Respiratory Respiratory exam: Present decreased breath sounds and rhonchi; Absent accessory muscle use, respiratory distress or wheezes Cardiovascular Cardiovascular exam: Present normal rate and rhythm; Absent JVD GI/Abdominal GI/Abdominal exam: Present normal bowel sounds and soft; Absent organomegaly or tenderness Extremities Exam Extremities exam: Present full ROM, normal capillary refill and normal inspection; Absent tenderness Neurological Exam Neurological exam: Present alert, CN II-XII intact and oriented X3; Absent motor sensory deficit Psychiatric Psychiatric exam: Present normal affect and normal mood; Absent anxious or depressed Skin Skin exam: Present dry and intact DATA Data Completed and Pending Labs: Labs from last 24 hours 08/15/21 08/15/21 08/15/21 19:29 19:25 19:24 WBC RBC Hgb Hct POC Hct 29.0 L MCV MCH MCHC RDW Plt Count MPV Immature Gran % (Auto) Neut % (Auto) Lymph % (Auto) [place] % (Auto) Eos % (Auto) Baso % (Auto) Lymph # (Auto) [place] # (Auto) Eos # (Auto) Baso # (Auto) Immature Gran # Absolute Neutrophils POC VBG pH 7.39 POC VBG pCO2 at Temp 32.8 L POC VBG pO2 33 POC VBG HCO3 19.7 L POC VBG Total CO2 21.0 L POC Venous O2 Sat 65.0 POC VBG Base Excess -5.0 L POC Sodium 142 POC Potassium 3.2 L POC Chloride 110 H POC Total CO2 20.0 L POC BUN 29 H POC Creatinine 0.7 POC Glucose 145 H POC Venous Lactate 1.1 POC WB Ioniz Calcium 1.23 Total Bilirubin Direct Bilirubin AST ALT Alkaline Phosphatase Total Protein Albumin Globulin Procalcitonin POC Troponin I 0.01 L 08/15/21 08/15/21 08/15/21 19:24 19:24 19:24 WBC 8.2 RBC 2.96 L Hgb 9.1 L Hct 29.9 L POC Hct MCV 101.0 H MCH 30.7 MCHC 30.4 L RDW 15.1 H Plt Count 211 MPV 9.9 Immature Gran % (Auto) 0.4 Neut % (Auto) 74.2 Lymph % (Auto) 16.7 [place] % (Auto) 6.8 Eos % (Auto) 1.3 Baso % (Auto) 0.6 Lymph # (Auto) 1.37 L [place] # (Auto) 0.56 Eos # (Auto) 0.11 Baso # (Auto) 0.05 Immature Gran # 0.03 Absolute Neutrophils 6.09 POC VBG pH POC VBG pCO2 at Temp POC VBG pO2 POC VBG HCO3 POC VBG Total CO2 POC Venous O2 Sat POC VBG Base Excess POC Sodium POC Potassium POC Chloride POC Total CO2 POC BUN POC Creatinine POC Glucose POC Venous Lactate POC WB Ioniz Calcium Total Bilirubin < 0.2 Direct Bilirubin < 0.2 AST 15 ALT 9 Alkaline Phosphatase 62 Total Protein 5.6 L Albumin 3.4 Globulin 2.2 Procalcitonin 0.08 POC Troponin I A/P Assessment and plan (1) Chronic obstructive pulmonary disease: Status: Chronic Qualifiers: COPD type: emphysema Emphysema type: panlobular Qualified Code(s): J43.1 - Panlobular emphysema (2) Pneumonia: Status: Acute Narrative A/P Narrative: Assessment and Plans: 1. Pneumonia: Observation med surg Supplemental oxygen therapy as needed titrate to achieve spo2>=88% given COPD-er Serial lactic acid Procalcitonin Blood culture cbc w/ auto diff in the morning to trend WBC NS@100cc/hr Patient had a recent sputum culture from June 2021 growing Pseudomonas aeruginosa sensitive to levofloxacin. Will start patient on oral levofloxacin given good bioavailability 2. h/o COPD: Continue bronchodilators from home DuoNeb nebulizer as needed wheezing Supplemental oxygen therapy as needed titrate to achieve spo2>=88% given COPD-er GI ppx: not currently indicated DVT ppx: Eliquis Code status: Full Prognosis: stable Disposition: observation med surg Time Spent With Patient Time: Total time spent is greater than 50% in coordination of care (as documented) at patient's floor/unit and/or counseling patient: Total time spent with greater than 50% in coordination of care (as documented) at patient's floor/unit and/or counseling patient:: 25 - 35 minutes
[2021-08-15] MEDS ORDERED: guaiFENesin/DEXTROMETHORPHAN ORAL SOL PO PRN (21:49)
[2021-08-15] MEDS ORDERED: APIXABAN 5 MG TABLET PO SCH (21:49)
[2021-08-15] MEDS ORDERED: ONDANSETRON 4 MG/2 ML VIAL IV PRN (21:49)
[2021-08-15] MEDS ORDERED: NON FORMULARY MEDICATION 1 DOSE MISCELL (Fluticasone Furoate-Vilanterol [Breo Ellipta] 200 INHALATION SCH (21:49)
[2021-08-15] MEDS: 0.9 % SODIUM CHLORIDE 1,000 ML IV SCH (21:54)
[2021-08-15] MEDS: 0.9 % SODIUM CHLORIDE 10 ML SYRINGE IV SCH (21:54)
[2021-08-15] MEDS: FLUTICASONE PROPIONATE SPRAY.NAS NS SCH (22:23)
[2021-08-15] MEDS ORDERED: APIXABAN 5 MG TABLET PO ONE (22:41)
[2021-08-15] MEDS ORDERED: MAGNESIUM CITRATE 300 ML ORAL.SOL ONE (22:41)
[2021-08-15] MEDS: HYDROcodone/APAP 10/325MG TABLET PO PRN (23:00)
[2021-08-15] MEDS: DOCUSATE SODIUM 100 MG CAPSULE PO SCH (23:19)
[2021-08-15] MEDS: SENNOSIDES 1 TABLET PO SCH (23:19)
[2021-08-16 06:27] LABS: Basophils # (Auto) 0.07 K/mcL (0.00-0.30); Basophils % (Auto) 1.1 % (0.0-2.0); Eosinophils # (Auto) 0.23 K/mcL (0.00-0.70); Eosinophils % (Auto) 3.5 % (0.0-7.0); Hematocrit 33.7 % (34.1-44.9); Hemoglobin 9.7 g/dL (11.2-15.7); Lymphocytes # (Auto) 1.63 K/mcL (1.50-4.80); Lymphocytes % (Auto) 24.6 % (15.5-49.0); Mean Corpuscular HGB Conc 28.8 g/dL (31.0-36.0); Mean Platelet Volume 9.6 fL (7.4-10.4); Monocytes # (Auto) 0.66 K/mcL (0.10-0.90); Neutrophils % (Auto) 60.5 % (38.0-78.0); Platelet Count 188 K/mcL (140-440); RBC 3.24 M/mcL (3.59-5.38); WBC 6.6 K/mcL (4.5-11.0)
[2021-08-16 06:54] LABS: ALT/SGPT 9 U/L (<40); AST/SGOT 17 U/L (<32); Albumin 3.2 gm/dL (3.2-5.2); Albumin/Globulin Ratio 1.1 (1.0-2.3); Alkaline Phosphatase 61 U/L (39-117); Bilirubin,Total 0.2 mg/dL (0.1-1.0); Blood Urea Nitrogen 23 mg/dL (8-23); Calcium 8.9 mg/dL (8.6-10.4); Carbon Dioxide 21 mmol/L (22-30); Chloride 112 mmol/L (96-108); Globulin 2.8 gm/dL (2.2-3.7); Glomerular Filtration Rate 77; Glucose 91 mg/dL (70-105)
[2021-08-16] MEDS ORDERED: SIMETHICONE 80 MG TAB.CHEW CHEWED PRN (07:47)
[2021-08-16] MEDS: 0.9 % SODIUM CHLORIDE 1,000 ML IV SCH ×2 (08:18→18:06)
[2021-08-16] MEDS: 0.9 % SODIUM CHLORIDE 10 ML SYRINGE IV SCH ×3 (08:19→20:58)
[2021-08-16] MEDS: POLYETHYLENE GLYCOL 3350 17 GM PACKET PO SCH (08:37)
[2021-08-16] MEDS: DOCUSATE SODIUM 100 MG CAPSULE PO SCH ×2 (08:37→20:58)
[2021-08-16] MEDS: LEVOFLOXACIN 500 MG TABLET PO SCH (08:37)
--- NOTE | 2021-08-16 09:16 | XRay Report ---
HISTORY: Short of breath FINDINGS: Patient has moderate pulmonary fibrosis and COPD. Superimposed upon this is a small alveolar infiltrate in the right lower lobe with an associated small pleural effusion. Heart size is within normal limits. Pulmonary vessels are obscured by the widespread fibrosis. No adenopathy is detected. IMPRESSION: Mild right lower lobe pneumonia superimposed upon COPD and pulmonary fibrosis Interpreted and Authenticated by: Benigno Wiggins 08/16/21
[2021-08-16] MEDS: HYDROcodone/APAP 10/325MG TABLET PO PRN ×3 (09:33→20:57)
[2021-08-16] MEDS: APIXABAN 5 MG TABLET PO SCH ×2 (09:33→20:57)
[2021-08-16] MEDS: [UNRECOGNIZED DRUG - OTHER] INH SCH (09:36)
[2021-08-16] MEDS: FLUTICASONE PROPIONATE SPRAY.NAS NS SCH ×2 (09:44→20:58)
[2021-08-16] MEDS: IPRATROPIUM/ALBUTEROL 3 ML AMPUL.NEB NEB PRN ×2 (09:44→21:12)
--- NOTE | 2021-08-16 11:58 | Internal Med Progress Note ---
SUBJECTIVE Subjective Patient information: Note initiated : 08/16/21 at 11:54 am Service Date, if different from initiated Date: [] Patient: Yudi Dotson a 89 y/o F admitted on 08/15/21 for sob. Chief Complaint: [] Interval history: History of present illness: Ms. Dotson is a 89 year old F history of COPD, recently admitted to our facility 2 months ago for pneumonia, presenting with 2 months history of progressive shortness of breath. Patient claims that she has been feeling shortness of breath getting progressively worse since last admissions. She is also committing of productive cough with clear sputum. She is coming of subjective fever and chills. She is coming of general body weakness. She is complaining of chest pain whenever she coughs. She denies respiratory wheezings. She is also complaining of nausea but denies any vomiting. She stated that she does not use oxygen at home. Vital signs significant for tachypnea with rate of breathing in the mid 20s. Labs significant for lack of leukocytosis with WBC 8.2. Lactic acid pending. Procalcitonin pending. COVID screening pending. Chest x-ray showing infiltrate right lung base suggestive of bacterial pneumonia. 08/16: Patient is on 2 L/min of oxygen. Afebrile overnight. Cultures no growth to date. COVID results pending. Patient is complaining of shortness of breath with productive cough with sputum productions. She is complaining of chest pain while coughing. She is complain of headaches as well as back pain. She is coming of general weakness. Continue IV fluid. Continue antibiotics oral Levaquin. Continue supplemental oxygen. Constitutional Vitals: Vital Signs Temp Pulse Resp BP Pulse Ox 36.9 C 103 H 16 137/78 97 08/16/21 07:45 08/16/21 09:51 08/16/21 09:51 08/16/21 07:45 08/16/21 09:51 Period Temp Pulse Resp BP Sys/Christiansen Pulse Ox Last 24 Hr 36.4 C-36.9 C 86-105 16-34 135-156/60-104 91-97 Intake and Output 08/15/21 08/16/21 08/16/21 21:59 05:59 13:59 Intake Total 250 1000 Output Total 250 300 Balance 250 -250 700 Weight 42.955 kg Intake & Output: Intake & Output 08/15/21 08/16/21 08/16/21 21:59 05:59 13:59 Intake Total 250 1000 Output Total 250 300 Balance 250 -250 700 Weight 42.955 kg Intake: IV 250 1000 Sodium Chloride 0.9% 1,000 ml @ 1000 100 mls/hr IV .Q10H AARON Rx#: [id number] Zithromax 500 mg In Dextrose 5% 250 in Water 250 ml @ 250 mls/hr IV ONCE ONE Rx#:[id number] Output: Urine/Stool Mix 250 300 Other: Stool Size Small Stool Color Black Stool Consistency Soft # Voids 1 # Bowel Movements 1 General appearance: cooperative and no acute distress Head Head exam: Present atraumatic and normal inspection Eye Eye exam: Present normal appearance ENT ENT exam: Present mucous membranes moist and normal external ear exam; Absent normal exam Additional comments: Bilateral decreased hearing Nasal cannula in place Neck Neck exam: Present normal inspection Respiratory Respiratory exam: Present normal respiratory exam and rhonchi Cardiovascular Cardiovascular exam: Present normal rate and rhythm GI/Abdominal GI/Abdominal exam: Present normal bowel sounds Back Exam Back exam: Present normal inspection Neurological Exam Neurological exam: Present alert and oriented X3 Skin Skin exam: Present intact and warm OBJ DATA Labs CBC & Chem 7: 08/16/21 05:42 08/16/21 05:42 Labs: Abnormal Lab Results 08/16/21 08/16/21 08/15/21 05:42 05:42 19:29 RBC 3.24 L Hgb 9.7 L Hct 33.7 L POC Hct MCV 104.0 H MCHC 28.8 L RDW 15.0 H Lymph # (Auto) POC VBG pCO2 at Temp POC VBG HCO3 POC VBG Total CO2 POC VBG Base Excess POC Potassium POC Chloride Chloride 112 H Carbon Dioxide 21 L POC Total CO2 POC BUN POC Glucose Total Protein POC Troponin I 0.01 L 08/15/21 08/15/21 08/15/21 19:25 19:24 19:24 RBC 2.96 L Hgb 9.1 L Hct 29.9 L POC Hct 29.0 L MCV 101.0 H MCHC 30.4 L RDW 15.1 H Lymph # (Auto) 1.37 L POC VBG pCO2 at Temp 32.8 L POC VBG HCO3 19.7 L POC VBG Total CO2 21.0 L POC VBG Base Excess -5.0 L POC Potassium 3.2 L POC Chloride 110 H Chloride Carbon Dioxide POC Total CO2 20.0 L POC BUN 29 H POC Glucose 145 H Total Protein POC Troponin I 08/15/21 19:24 RBC Hgb Hct POC Hct MCV MCHC RDW Lymph # (Auto) POC VBG pCO2 at Temp POC VBG HCO3 POC VBG Total CO2 POC VBG Base Excess POC Potassium POC Chloride Chloride Carbon Dioxide POC Total CO2 POC BUN POC Glucose Total Protein 5.6 L POC Troponin I Meds: Medications Hydrocodone Bitart/Acetaminophen (Hydrocodone/Apap 10/325mg Tablet) 1 tab PO TIDP PRN; Protocol PRN Reason: Pain Last Admin: 08/16/21 09:33 Dose: 1 tab Documented by: Albuterol Sulfate (Albuterol Sulfate 2.5 Mg/3 Ml Nebulizer) 2.5 mg INH Q4H PRN PRN Reason: shortness of breath Albuterol/Ipratropium (Ipratropium/Albuterol 3 Ml Ampul.Neb) 3 ml NEB Q4HRT PRN PRN Reason: Wheezing Last Admin: 08/16/21 09:44 Dose: 3 ml Documented by: Apixaban (Apixaban 5 Mg Tablet) 2.5 mg PO BID [facility] Last Admin: 08/16/21 09:33 Dose: 2.5 mg Documented by: Docusate Sodium (Docusate Sodium 100 Mg Capsule) 100 mg PO BID [facility] Last Admin: 08/16/21 08:37 Dose: 100 mg Documented by: Fluticasone Propionate (Fluticasone Propionate [place].Vinayak) 2 spray NS BID [facility] Last Admin: 08/16/21 09:44 Dose: Not Given Documented by: Guaifenesin (Guaifenesin/Dextromethorphan Oral Ayse) 10 ml PO Q4HP PRN PRN Reason: Cough Sodium Chloride (Sodium Chloride 0.9%) 1,000 mls @ 100 mls/hr IV .Q10H [facility] Last Admin: 08/16/21 08:18 Dose: 100 mls/hr Documented by: Levofloxacin (Levofloxacin 500 Mg Tablet) 500 mg PO DAILY [facility]; Protocol Last Admin: 08/16/21 08:37 Dose: 500 mg Documented by: Ondansetron HCl (Ondansetron 4 Mg/2 Ml Vial) 4 mg IV Q6HP PRN PRN Reason: Nausea And Vomiting Fluticasone Furoate- Umeclidinium- Vilanterol [Breo Ellipta] 100/62.5/25 Mcg Inhaler 1 dose INH DAILY [facility] Last Admin: 08/16/21 09:36 Dose: 1 dose Documented by: Magnesium Citrate (125 Mg Capsule) 1 dose PO QHS [facility] Polyethylene Glycol (Polyethylene Glycol 3350 17 Gm Packet) 17 gm PO QDAY [facility] Last Admin: 08/16/21 08:37 Dose: 17 gm Documented by: Senna (Sennosides 1 Tablet) 2 tab PO HS [facility] Last Admin: 08/15/21 23:19 Dose: Not Given Documented by: Simethicone (Simethicone 80 Mg Tab.Chew) 80 mg CHEWED DAILYP PRN PRN Reason: Dyspepsia Sodium Chloride (0.9 % Sodium Chloride 10 Ml Syringe) 10 ml IV Q8 [facility] Last Admin: 08/16/21 08:19 Dose: Not Given Documented by: Trazodone HCl (Trazodone Hcl 50 Mg Tablet) 25 mg PO HSP PRN PRN Reason: Insomnia A/P Assessment and plan (1) Chronic obstructive pulmonary disease: Status: Chronic Qualifiers: COPD type: emphysema Emphysema type: panlobular Qualified Code(s): J43.1 - Panlobular emphysema (2) Pneumonia: Status: Acute (3) Anemia, macrocytic: Status: Acute Narrative A/P Narrative: Assessment and Plans: 1. Pneumonia: Observation med surg Supplemental oxygen therapy as needed titrate to achieve spo2>=88% given COPD-er Serial lactic acid Procalcitonin 0.08 Blood culture, no growth to date CoVID results pending cbc w/ auto diff in the morning to trend WBC NS@100cc/hr Patient had a recent sputum culture from June 2021 growing Pseudomonas aeruginosa sensitive to levofloxacin. Will start patient on oral levofloxacin given good bioavailability 2. h/o COPD: Continue bronchodilators from home DuoNeb nebulizer as needed wheezing Supplemental oxygen therapy as needed titrate to achieve spo2>=88% given COPD-er 3. Anemia, macrocytic: cbc w/ auto diff in the morning to trend H/H GI ppx: not currently indicated DVT ppx: Eliquis Code status: Full Prognosis: stable Disposition: observation med surg Time Spent With Patient Time: Total time spent is greater than 50% in coordination of care (as documented) at patient's floor/unit and/or counseling patient: Total time spent with greater than 50% in coordination of care (as documented) at patient's floor/unit and/or counseling patient:: 35 - 50 minutes QUALITY VTE Deep Vein Thrombosis/Pulmonary Embolism Present on Admission: No
[2021-08-16] MEDS: NICOTINE 21 MG PATCH TOPICAL SCH (16:23)
[2021-08-16] MEDS: SENNOSIDES 1 TABLET PO SCH (20:58)
[2021-08-17] MEDS: ALBUTEROL SULFATE 2.5 MG/3 ML NEBULIZER INH PRN (01:14)
[2021-08-17] MEDS ORDERED: IPRATROPIUM/ALBUTEROL 3 ML AMPUL.NEB NEB PRN (01:32)
[2021-08-17] MEDS ORDERED: 0.9 % SODIUM CHLORIDE 1,000 ML IV SCH (01:45)
[2021-08-17] MEDS: IPRATROPIUM/ALBUTEROL 3 ML AMPUL.NEB NEB PRN ×2 (01:56→07:38)
[2021-08-17 02:20] LABS: Basophils # (Auto) 0.08 K/mcL (0.00-0.30); Basophils % (Auto) 0.8 % (0.0-2.0); Eosinophils % (Auto) 2.8 % (0.0-7.0); Hematocrit 33.5 % (34.1-44.9); Hemoglobin 9.6 g/dL (11.2-15.7); Lymphocytes # (Auto) 2.75 K/mcL (1.50-4.80); Mean Corpuscular HGB Conc 28.7 g/dL (31.0-36.0); Mean Platelet Volume 10.5 fL (7.4-10.4); Monocytes # (Auto) 0.92 K/mcL (0.10-0.90); Monocytes % (Auto) 8.7 % (1.0-12.0); Neutrophils % (Auto) 61.3 % (38.0-78.0); Platelet Count 200 K/mcL (140-440); RBC 2.99 M/mcL (3.59-5.38); Red Cell Distribution Width 15.8 % (11.5-14.5); WBC 10.6 K/mcL (4.5-11.0)
[2021-08-17 02:40] LABS: ALT/SGPT 9 U/L (<40); AST/SGOT 21 U/L (<32); Albumin 3.3 gm/dL (3.2-5.2); Albumin/Globulin Ratio 1.1 (1.0-2.3); Alkaline Phosphatase 68 U/L (39-117); Bilirubin,Total 0.2 mg/dL (0.1-1.0); Blood Urea Nitrogen 24 mg/dL (8-23); Calcium 8.6 mg/dL (8.6-10.4); Carbon Dioxide 20 mmol/L (22-30); Chloride 109 mmol/L (96-108); Globulin 2.9 gm/dL (2.2-3.7); Glomerular Filtration Rate 77; Glucose 153 mg/dL (70-105)
[2021-08-17] MEDS: HYDROcodone/APAP 10/325MG TABLET PO PRN ×4 (03:53→21:09)
[2021-08-17] MEDS: 0.9 % SODIUM CHLORIDE 1,000 ML IV SCH (03:53)
[2021-08-17] MEDS: 0.9 % SODIUM CHLORIDE 10 ML SYRINGE IV SCH ×3 (05:42→21:10)
[2021-08-17 06:09] LABS: Basophils # (Auto) 0.05 K/mcL (0.00-0.30); Basophils % (Auto) 0.6 % (0.0-2.0); Eosinophils # (Auto) 0.05 K/mcL (0.00-0.70); Eosinophils % (Auto) 0.6 % (0.0-7.0); Hematocrit 28.3 % (34.1-44.9); Hemoglobin 8.2 g/dL (11.2-15.7); Lymphocytes # (Auto) 0.76 K/mcL (1.50-4.80); Lymphocytes % (Auto) 9.3 % (15.5-49.0); Mean Cell Volume 102.9 fL (80.0-100.0); Mean Platelet Volume 9.7 fL (7.4-10.4); Monocytes # (Auto) 0.51 K/mcL (0.10-0.90); Monocytes % (Auto) 6.2 % (1.0-12.0); Neutrophils % (Auto) 82.8 % (38.0-78.0); Platelet Count 209 K/mcL (140-440); RBC 2.75 M/mcL (3.59-5.38); Red Cell Distribution Width 15.3 % (11.5-14.5); WBC 8.2 K/mcL (4.5-11.0)
--- NOTE | 2021-08-17 06:18 | XRay Report ---
INDICATION: Dyspnea TECHNIQUE: AP upright chest x-ray COMPARISON: Previous chest x-rays dated 08/15/2021, 07/05/2021. Previous chest CT scan dated 06/17/2021 FINDINGS: Lungs:Severe garcía lobar emphysema. Linear densities in both lungs consistent with chronic scarring. Previous chest CT scan demonstrated a somewhat spiculated density in the right lung apex. This is a suspicious abnormality but is not well-visualized on plain film examination. Bilateral, bibasilar infiltrates. There is mild cardiomegaly and there are bilateral pleural effusions. Appearance is most consistent with congestive heart failure and pulmonary edema. Pneumonia is also possible. Clinical correlation and follow-up radiographs are recommended. Findings are worse than on 08/15/2021 Heart, vascular:Mild cardiomegaly, increased. Bibasilar infiltrates are consistent with pulmonary edema and congestive heart failure. Pneumonia is possible Mediastinum, yogesh:No mediastinal widening. No hilar mass Pleura:Bilateral small pleural effusions, right greater than left Skeletal:Negative. IMPRESSION: 1. Chronic emphysema 2. No cardiomegaly, bibasilar infiltrates, and bilateral pleural effusions. Findings are consistent with pulmonary edema. Bibasilar pneumonia is possible. Interpreted and Authenticated by: Yomi Mclain 08/17/21
[2021-08-17 06:38] LABS: ALT/SGPT 7 U/L (<40); AST/SGOT 14 U/L (<32); Albumin 2.9 gm/dL (3.2-5.2); Albumin/Globulin Ratio 1.2 (1.0-2.3); Alkaline Phosphatase 58 U/L (39-117); Bilirubin,Total < 0.2 mg/dL (0.1-1.0); Blood Urea Nitrogen 23 mg/dL (8-23); Calcium 8.4 mg/dL (8.6-10.4); Carbon Dioxide 20 mmol/L (22-30); Chloride 113 mmol/L (96-108); Globulin 2.5 gm/dL (2.2-3.7); Glomerular Filtration Rate 81; Glucose 123 mg/dL (70-105)
[2021-08-17] MEDS: DOCUSATE SODIUM 100 MG CAPSULE PO SCH ×2 (08:10→21:19)
[2021-08-17] MEDS: POLYETHYLENE GLYCOL 3350 17 GM PACKET PO SCH (08:10)
[2021-08-17] MEDS: APIXABAN 5 MG TABLET PO SCH ×2 (08:10→21:08)
[2021-08-17] MEDS: LEVOFLOXACIN 500 MG TABLET PO SCH (08:10)
[2021-08-17] MEDS: LORazepam 1 MG TABLET SL PRN ×2 (08:10→15:09)
[2021-08-17] MEDS: FLUTICASONE PROPIONATE SPRAY.NAS NS SCH ×2 (08:10→19:30)
[2021-08-17] MEDS: [UNRECOGNIZED DRUG - OTHER] INH SCH (08:12)
--- NOTE | 2021-08-17 09:44 | Internal Med Progress Note ---
SUBJECTIVE Subjective Patient information: Note initiated : 08/17/21 at 9:39 am Service Date, if different from initiated Date: [] Patient: Yudi Dotson a 89 y/o F admitted on 08/17/21 for sob. Chief Complaint: [] Interval history: History of present illness: Ms. Dotson is a 89 year old F history of COPD, recently admitted to our facility 2 months ago for pneumonia, presenting with 2 months history of progressive shortness of breath. Patient claims that she has been feeling shortness of breath getting progressively worse since last admissions. She is also committing of productive cough with clear sputum. She is coming of subjective fever and chills. She is coming of general body weakness. She is complaining of chest pain whenever she coughs. She denies respiratory wheezings. She is also complaining of nausea but denies any vomiting. She stated that she does not use oxygen at home. Vital signs significant for tachypnea with rate of breathing in the mid 20s. Labs significant for lack of leukocytosis with WBC 8.2. Lactic acid pending. Procalcitonin pending. COVID screening pending. Chest x-ray showing infiltrate right lung base suggestive of bacterial pneumonia. 08/16: Patient is on 2 L/min of oxygen. Afebrile overnight. Cultures no growth to date. COVID results pending. Patient is complaining of shortness of breath with productive cough with sputum productions. She is complaining of chest pain while coughing. She is complain of headaches as well as back pain. She is coming of general weakness. Continue IV fluid. Continue antibiotics oral Levaquin. Continue supplemental oxygen. 08/17: Rapid response was called last night for increasing degree of shortness of breath as well as anxiety. She was placed on oxygen mask with up to 5 L/min of oxygen and also element was given. She was being transferred to PCU and inpatient status. This morning she is continuing to complaining of worsening degree of shortness of breath as well as anxiety. She also is complaining of cough and respiratory wheezings. She denies any fever or chills. Will change DuoNeb from as needed to scheduled. We will add prednisone in addition to levofloxacin for treatment of bacterial pneumonia plus or minus COPD exacerbations. Continue supplemental oxygen therapy titrate to keep SPO2 above or equal to 88% given COPD. Ativan as needed for anxiety. Constitutional Vitals: Vital Signs Temp Pulse Resp BP Pulse Ox 36.3 C 127 H 32 H 130/111 98 08/17/21 08:01 08/17/21 08:01 08/17/21 08:01 08/17/21 08:01 08/17/21 08:01 Period Temp Pulse Resp BP Sys/Christiansen Pulse Ox Last 24 Hr 35.8 C-37.2 C 88-135 16-37 111-160/64-111 84-100 Intake and Output 08/16/21 08/17/21 08/17/21 21:59 05:59 13:59 Intake Total 1380 Output Total 250 400 400 Balance 1130 -400 -400 Weight 44.271 kg Intake & Output: Intake & Output 08/16/21 08/17/21 08/17/21 21:59 05:59 13:59 Intake Total 1380 Output Total 250 400 400 Balance 1130 -400 -400 Weight 44.271 kg Intake: IV 980 Sodium Chloride 0.9% 1,000 ml @ 980 100 mls/hr IV .Q10H [facility] Rx#: [id number] GI Tube Flush 400 Output: Urine Catheter Amount 400 400 Void Amount 250 Other: Meal Dinner Percent of Meal Consumed 50% Feeding Ability Independent Urine Appearance Clear Clear Clear Uretheral (Paredes) Clear Urine Color Dark Yellow Bright Yellow Dark Yellow Uretheral (Paredes) Bright Yellow Urine Odor Strong Normal Stool Size Small Stool Color Brown Stool Consistency Formed # Voids 1 # Bowel Movements 1 General appearance: cooperative and mild distress Head Head exam: Present atraumatic and normal inspection Eye Eye exam: Present normal appearance ENT ENT exam: Present mucous membranes moist, normal exam and normal external ear exam Additional comments: oxymask in place Neck Neck exam: Present normal inspection Respiratory Respiratory exam: Present decreased breath sounds, rhonchi and wheezes Cardiovascular Cardiovascular exam: Present normal rate and rhythm GI/Abdominal GI/Abdominal exam: Present normal bowel sounds Back Exam Back exam: Present normal inspection Neurological Exam Neurological exam: Present alert and oriented X3 Skin Skin exam: Present intact and warm OBJ DATA Labs CBC & Chem 7: 08/17/21 05:23 08/17/21 05:22 Labs: Abnormal Lab Results 08/17/21 08/17/21 08/17/21 05:23 05:22 01:48 RBC 2.75 L Hgb 8.2 L Hct 28.3 L POC Hct MCV 102.9 H MCHC 29.0 L RDW 15.3 H MPV Neut % (Auto) 82.8 H Lymph % (Auto) 9.3 L Lymph # (Auto) 0.76 L [place] # (Auto) POC VBG pH 7.28 L POC VBG pCO2 at Temp POC VBG pO2 22 L POC VBG HCO3 21.0 L POC VBG Total CO2 22.0 L POC Venous O2 Sat 30.0 L POC VBG Base Excess -6.0 L POC Potassium POC Chloride Chloride 113 H Carbon Dioxide 20 L POC Total CO2 POC BUN BUN Glucose 123 H POC Glucose Calcium 8.4 L Total Protein 5.4 L Albumin 2.9 L POC Troponin I 08/17/21 08/17/21 08/16/21 01:45 01:45 05:42 RBC 2.99 L Hgb 9.6 L Hct 33.5 L POC Hct MCV 112.0 H MCHC 28.7 L RDW 15.8 H MPV 10.5 H Neut % (Auto) Lymph % (Auto) Lymph # (Auto) [place] # (Auto) 0.92 H POC VBG pH POC VBG pCO2 at Temp POC VBG pO2 POC VBG HCO3 POC VBG Total CO2 POC Venous O2 Sat POC VBG Base Excess POC Potassium POC Chloride Chloride 109 H 112 H Carbon Dioxide 20 L 21 L POC Total CO2 POC BUN BUN 24 H Glucose 153 H POC Glucose Calcium Total Protein Albumin POC Troponin I 08/16/21 08/15/21 08/15/21 05:42 19:29 19:25 RBC 3.24 L Hgb 9.7 L Hct 33.7 L POC Hct MCV 104.0 H MCHC 28.8 L RDW 15.0 H MPV Neut % (Auto) Lymph % (Auto) Lymph # (Auto) [place] # (Auto) POC VBG pH POC VBG pCO2 at Temp 32.8 L POC VBG pO2 POC VBG HCO3 19.7 L POC VBG Total CO2 21.0 L POC Venous O2 Sat POC VBG Base Excess -5.0 L POC Potassium POC Chloride Chloride Carbon Dioxide POC Total CO2 POC BUN BUN Glucose POC Glucose Calcium Total Protein Albumin POC Troponin I 0.01 L 08/15/21 08/15/21 08/15/21 19:24 19:24 19:24 RBC 2.96 L Hgb 9.1 L Hct 29.9 L POC Hct 29.0 L MCV 101.0 H MCHC 30.4 L RDW 15.1 H MPV Neut % (Auto) Lymph % (Auto) Lymph # (Auto) 1.37 L [place] # (Auto) POC VBG pH POC VBG pCO2 at Temp POC VBG pO2 POC VBG HCO3 POC VBG Total CO2 POC Venous O2 Sat POC VBG Base Excess POC Potassium 3.2 L POC Chloride 110 H Chloride Carbon Dioxide POC Total CO2 20.0 L POC BUN 29 H BUN Glucose POC Glucose 145 H Calcium Total Protein 5.6 L Albumin POC Troponin I Meds: Medications Hydrocodone Bitart/Acetaminophen (Hydrocodone/Apap 10/325mg Tablet) 1 tab PO TI DP PRN; Protocol PRN Reason: Pain Last Admin: 08/17/21 03:53 Dose: 1 tab Documented by: Albuterol Sulfate (Albuterol Sulfate 2.5 Mg/3 Ml Nebulizer) 2.5 mg INH Q4H PRN PRN Reason: shortness of breath Last Admin: 08/17/21 01:14 Dose: 2.5 mg Documented by: Albuterol/Ipratropium (Ipratropium/Albuterol 3 Ml Ampul.Neb) 3 ml NEB ONCE PRN PRN Reason: Shortness Of Breath Albuterol/Ipratropium (Ipratropium/Albuterol 3 Ml Ampul.Neb) 3 ml NEB Q4HRT [facility] Apixaban (Apixaban 5 Mg Tablet) 2.5 mg PO BID [facility] Last Admin: 08/17/21 08:10 Dose: 2.5 mg Documented by: Docusate Sodium (Docusate Sodium 100 Mg Capsule) 100 mg PO BID [facility] Last Admin: 08/17/21 08:10 Dose: 100 mg Documented by: Fluticasone Propionate (Fluticasone Propionate [place].Vinayak) 2 spray NS BID [facility] Last Admin: 08/17/21 08:10 Dose: Not Given Documented by: Guaifenesin (Guaifenesin/Dextromethorphan Oral Ayse) 10 ml PO Q4HP PRN PRN Reason: Cough Sodium Chloride (Sodium Chloride 0.9%) 1,000 mls @ 100 mls/hr IV .Q10H [facility] Last Admin: 08/17/21 03:53 Dose: Not Given Documented by: Sodium Chloride (Sodium Chloride 0.9%) 1,000 mls @ 0 mls/hr IV .Q0M [facility] Levofloxacin (Levofloxacin 500 Mg Tablet) 500 mg PO DAILY [facility]; Protocol Last Admin: 08/17/21 08:10 Dose: 500 mg Documented by: Lorazepam (Lorazepam 1 Mg Tablet) 0.5 mg SL Q4HP PRN PRN Reason: Anxiety Last Admin: 08/17/21 08:10 Dose: 0.5 mg Documented by: Nicotine (Nicotine 21 Mg Patch) 21 mg TOPICAL DAILY@1000 [facility] Last Admin: 08/16/21 16:23 Dose: 21 mg Documented by: Ondansetron HCl (Ondansetron 4 Mg/2 Ml Vial) 4 mg IV Q6HP PRN PRN Reason: Nausea And Vomiting Fluticasone Furoate- Umeclidinium- Vilanterol [Breo Ellipta] 100/62.5/25 Mcg Inhaler 1 dose INH DAILY [facility] Last Admin: 08/17/21 08:12 Dose: 1 dose Documented by: Magnesium Citrate (125 Mg Capsule) 1 dose PO QHS [facility] Last Admin: 08/16/21 20:58 Dose: Not Given Documented by: Polyethylene Glycol (Polyethylene Glycol 3350 17 Gm Packet) 17 gm PO QDAY [facility] Last Admin: 08/17/21 08:10 Dose: 17 gm Documented by: Senna (Sennosides 1 Tablet) 2 tab PO [facility] Last Admin: 08/16/21 20:58 Dose: 2 tab Documented by: Simethicone (Simethicone 80 Mg Tab.Chew) 80 mg CHEWED DAILYP PRN PRN Reason: Dyspepsia Sodium Chloride (0.9 % Sodium Chloride 10 Ml Syringe) 10 ml IV Q8 [facility] Last Admin: 08/17/21 05:42 Dose: 10 ml Documented by: Trazodone HCl (Trazodone Hcl 50 Mg Tablet) 25 mg PO HSP PRN PRN Reason: Insomnia A/P Assessment and plan (1) Pneumonia: Status: Acute (2) Anemia, macrocytic: Status: Acute (3) COPD exacerbation: Status: Acute Narrative A/P Narrative: Assessment and Plans: 1. Pneumonia: Inpatient PCU Supplemental oxygen therapy as needed titrate to achieve spo2>=88% given COPD- er, currently on oxymask 5L/min Serial lactic acid Procalcitonin 0.08 Blood culture, no growth to date CoVID results pending cbc w/ auto diff in the morning to trend WBC Saline lock Patient had a recent sputum culture from June 2021 growing Pseudomonas aeruginosa sensitive to levofloxacin. Will start patient on oral levofloxacin given good bioavailability Ativan PRN anxiety 2. COPD with exacerbation: Continue bronchodilators from home DuoNeb NEB scheduled Levaquin Prednisone Supplemental oxygen therapy as needed titrate to achieve spo2>=88% given COPD- er, currently on oxymask 5L/min 3. Anemia, macrocytic: cbc w/ auto diff in the morning to trend H/H GI ppx: not currently indicated DVT ppx: Eliquis Code status: Full Prognosis: Guarded Disposition: Inpatient PCU Time Spent With Patient Time: Total time spent is greater than 50% in coordination of care (as documented) at patient's floor/unit and/or counseling patient: Total time spent with greater than 50% in coordination of care (as documented) at patient's floor/unit and/or counseling patient:: 50 - 70 minutes QUALITY VTE Deep Vein Thrombosis/Pulmonary Embolism Present on Admission: No
--- NOTE | 2021-08-17 10:14 | XRay Report ---
INDICATION: SOB TECHNIQUE: AP portable upright chest x-ray COMPARISON: Previous chest x-rays dated 08/17/2021, 08/15/2021, 07/05/2021. Previous chest CT scan dated 06/17/2021 FINDINGS: Lungs:There is garcía lobar emphysema. There are bilateral, predominantly bibasilar infiltrates consistent with pulmonary edema. There has been some interval improvement since previous examination dated 08/17/2021. There is mild cardiomegaly. There are bilateral pleural effusions. Findings are consistent with congestive heart failure Heart, vascular:Mild cardiomegaly. Prominent vascularity consistent with congestive heart failure Mediastinum, yogesh:No mediastinal widening. No hilar mass Pleura:Small pleural effusions, right worse than left. Pleural effusions are improved since previous examination dated 08/17/2021 Skeletal, soft tissues:There is a calcification in the midline at the cervicothoracic junction. This is probably thyroid IMPRESSION: 1. García lobar emphysema 2. Findings consistent with congestive heart failure, interval improvement since previous examination dated 08/17/2021 Interpreted and Authenticated by: Yomi Mclain 08/17/21
[2021-08-17] MEDS: predniSONE 20 MG TABLET PO SCH (10:41)
[2021-08-17] MEDS: NICOTINE 21 MG PATCH TOPICAL SCH ×2 (10:41→15:15)
[2021-08-17] MEDS: IPRATROPIUM/ALBUTEROL 3 ML AMPUL.NEB NEB SCH ×4 (11:17→23:05)
--- NOTE | 2021-08-17 13:39 | Internal Med Progress Note ---
SUBJECTIVE Subjective Patient information: Note initiated : 08/17/21 at 1:27 pm Service Date, if different from initiated Date: [] Patient: Yudi Dotson a 89 y/o F admitted on 08/17/21 for sob. Chief Complaint: [] Interval history: History of present illness: Ms. Dotson is a 89 year old F history of COPD, recently admitted to our facility 2 months ago for pneumonia, presenting with 2 months history of progressive shortness of breath. Patient claims that she has been feeling shortness of breath getting progressively worse since last admissions. She is also committing of productive cough with clear sputum. She is coming of subjective fever and chills. She is coming of general body weakness. She is complaining of chest pain whenever she coughs. She denies respiratory wheezings. She is also complaining of nausea but denies any vomiting. She stated that she does not use oxygen at home. Vital signs significant for tachypnea with rate of breathing in the mid 20s. Labs significant for lack of leukocytosis with WBC 8.2. Lactic acid pending. Procalcitonin pending. COVID screening pending. Chest x-ray showing infiltrate right lung base suggestive of bacterial pneumonia. 08/16: Patient is on 2 L/min of oxygen. Afebrile overnight. Cultures no growth to date. COVID results pending. Patient is complaining of shortness of breath with productive cough with sputum productions. She is complaining of chest pain while coughing. She is complain of headaches as well as back pain. She is coming of general weakness. Continue IV fluid. Continue antibiotics oral Levaquin. Continue supplemental oxygen. 08/17: Rapid response was called last night for increasing degree of shortness of breath as well as anxiety. She was placed on oxygen mask with up to 5 L/min of oxygen and also element was given. She was being transferred to PCU and inpatient status. This morning she is continuing to complaining of worsening degree of shortness of breath as well as anxiety. She also is complaining of cough and respiratory wheezings. She denies any fever or chills. Will change DuoNeb from as needed to scheduled. We will add prednisone in addition to levofloxacin for treatment of bacterial pneumonia plus or minus COPD exacerbations. Continue supplemental oxygen therapy titrate to keep SPO2 above or equal to 88% given COPD. Ativan as needed for anxiety. 08/18 Constitutional Vitals: Vital Signs Temp Pulse Resp BP Pulse Ox 97.2 F 117 H 31 H 139/108 100 08/17/21 12:01 08/17/21 12:01 08/17/21 12:01 08/17/21 12:01 08/17/21 12:01 Period Temp Pulse Resp BP Sys/Christiansen Pulse Ox Last 24 Hr 96.5 F-98.5 F 88-135 18-37 111-160/64-111 84-100 Intake and Output 08/16/21 08/17/21 08/17/21 21:59 05:59 13:59 Intake Total 1380 1000 Output Total 250 400 400 Balance 1130 -400 600 Weight 44.271 kg Intake & Output: Intake & Output 08/16/21 08/17/21 08/17/21 21:59 05:59 13:59 Intake Total 1380 1000 Output Total 250 400 400 Balance 1130 -400 600 Weight 44.271 kg Intake: IV 980 1000 Sodium Chloride 0.9% 1,000 ml @ 980 1000 100 mls/hr IV .Q10H [facility] Rx#: [id number] GI Tube Flush 400 Output: Urine Catheter Amount 400 400 Void Amount 250 Other: Meal Dinner Lunch Percent of Meal Consumed 50% 100% Feeding Ability Independent Independent Urine Appearance Clear Clear Clear Uretheral (Paredes) Clear Clear Urine Color Dark Yellow Bright Yellow Dark Yellow Uretheral (Paredes) Bright Yellow Bright Yellow Urine Odor Strong Normal Stool Size Small Stool Color Brown Stool Consistency Formed # Voids 1 # Bowel Movements 1 Exam: General: Alert, Awake, No acute Distress, cachectic Eyes/N/T: EOMI, Head/Neck: neck supple, CV: tacky but regular, No murmurs, Pulm: Clear b/l, no wheezing/rhonchi/rales Abd: soft, nontender, +BS x4 Ext: no clubbing/cyanosis/edema Neuro: Alert, no focal deficits, moves all extremities, Skin: warm/dry Psych: Cognitive impairment OBJ DATA Labs CBC & Chem 7: 08/17/21 05:23 08/17/21 05:22 Labs: Abnormal Lab Results 08/17/21 08/17/21 08/17/21 05:23 05:22 01:48 RBC 2.75 L Hgb 8.2 L Hct 28.3 L POC Hct MCV 102.9 H MCHC 29.0 L RDW 15.3 H MPV Neut % (Auto) 82.8 H Lymph % (Auto) 9.3 L Lymph # (Auto) 0.76 L [place] # (Auto) POC VBG pH 7.28 L POC VBG pCO2 at Temp POC VBG pO2 22 L POC VBG HCO3 21.0 L POC VBG Total CO2 22.0 L POC Venous O2 Sat 30.0 L POC VBG Base Excess -6.0 L POC Potassium POC Chloride Chloride 113 H Carbon Dioxide 20 L POC Total CO2 POC BUN BUN Glucose 123 H POC Glucose Calcium 8.4 L Total Protein 5.4 L Albumin 2.9 L POC Troponin I 08/17/21 08/17/21 08/16/21 01:45 01:45 05:42 RBC 2.99 L Hgb 9.6 L Hct 33.5 L POC Hct MCV 112.0 H MCHC 28.7 L RDW 15.8 H MPV 10.5 H Neut % (Auto) Lymph % (Auto) Lymph # (Auto) [place] # (Auto) 0.92 H POC VBG pH POC VBG pCO2 at Temp POC VBG pO2 POC VBG HCO3 POC VBG Total CO2 POC Venous O2 Sat POC VBG Base Excess POC Potassium POC Chloride Chloride 109 H 112 H Carbon Dioxide 20 L 21 L POC Total CO2 POC BUN BUN 24 H Glucose 153 H POC Glucose Calcium Total Protein Albumin POC Troponin I 08/16/21 08/15/21 08/15/21 05:42 19:29 19:25 RBC 3.24 L Hgb 9.7 L Hct 33.7 L POC Hct MCV 104.0 H MCHC 28.8 L RDW 15.0 H MPV Neut % (Auto) Lymph % (Auto) Lymph # (Auto) [place] # (Auto) POC VBG pH POC VBG pCO2 at Temp 32.8 L POC VBG pO2 POC VBG HCO3 19.7 L POC VBG Total CO2 21.0 L POC Venous O2 Sat POC VBG Base Excess -5.0 L POC Potassium POC Chloride Chloride Carbon Dioxide POC Total CO2 POC BUN BUN Glucose POC Glucose Calcium Total Protein Albumin POC Troponin I 0.01 L 08/15/21 08/15/21 08/15/21 19:24 19:24 19:24 RBC 2.96 L Hgb 9.1 L Hct 29.9 L POC Hct 29.0 L MCV 101.0 H MCHC 30.4 L RDW 15.1 H MPV Neut % (Auto) Lymph % (Auto) Lymph # (Auto) 1.37 L [place] # (Auto) POC VBG pH POC VBG pCO2 at Temp POC VBG pO2 POC VBG HCO3 POC VBG Total CO2 POC Venous O2 Sat POC VBG Base Excess POC Potassium 3.2 L POC Chloride 110 H Chloride Carbon Dioxide POC Total CO2 20.0 L POC BUN 29 H BUN Glucose POC Glucose 145 H Calcium Total Protein 5.6 L Albumin POC Troponin I Meds: Medications Hydrocodone Bitart/Acetaminophen (Hydrocodone/Apap 10/325mg Tablet) 1 tab PO TIDP PRN; Protocol PRN Reason: Pain Last Admin: 08/17/21 11:11 Dose: 1 tab Documented by: Albuterol Sulfate (Albuterol Sulfate 2.5 Mg/3 Ml Nebulizer) 2.5 mg INH Q4H PRN PRN Reason: shortness of breath Last Admin: 08/17/21 01:14 Dose: 2.5 mg Documented by: Albuterol/Ipratropium (Ipratropium/Albuterol 3 Ml Ampul.Neb) 3 ml NEB Q4HRT [facility] Last Admin: 08/17/21 11:17 Dose: 3 ml Documented by: Apixaban (Apixaban 5 Mg Tablet) 2.5 mg PO BID [facility] Last Admin: 08/17/21 08:10 Dose: 2.5 mg Documented by: Docusate Sodium (Docusate Sodium 100 Mg Capsule) 100 mg PO BID [facility] Last Admin: 08/17/21 08:10 Dose: 100 mg Documented by: Fluticasone Propionate (Fluticasone Propionate [place].Vinayak) 2 spray NS BID [facility] Last Admin: 08/17/21 08:10 Dose: Not Given Documented by: Guaifenesin (Guaifenesin/Dextromethorphan Oral Ayse) 10 ml PO Q4HP PRN PRN Reason: Cough Sodium Chloride (Sodium Chloride 0.9%) 1,000 mls @ 0 mls/hr IV .Q0M [facility] Levofloxacin (Levofloxacin 500 Mg Tablet) 500 mg PO DAILY [facility]; Protocol Last Admin: 08/17/21 08:10 Dose: 500 mg Documented by: Lorazepam (Lorazepam 1 Mg Tablet) 0.5 mg SL Q4HP PRN PRN Reason: Anxiety Last Admin: 08/17/21 08:10 Dose: 0.5 mg Documented by: Nicotine (Nicotine 21 Mg Patch) 21 mg TOPICAL DAILY@1000 [facility] Last Admin: 08/17/21 10:41 Dose: 21 mg Documented by: Ondansetron HCl (Ondansetron 4 Mg/2 Ml Vial) 4 mg IV Q6HP PRN PRN Reason: Nausea And Vomiting Fluticasone Furoate- Umeclidinium- Vilanterol [Breo Ellipta] 100/62.5/25 Mcg Inhaler 1 dose INH DAILY [facility] Last Admin: 08/17/21 08:12 Dose: 1 dose Documented by: Magnesium Citrate (125 Mg Capsule) 1 dose PO QHS [facility] Last Admin: 08/16/21 20:58 Dose: Not Given Documented by: Polyethylene Glycol (Polyethylene Glycol 3350 17 Gm Packet) 17 gm PO QDAY [facility] Last Admin: 08/17/21 08:10 Dose: 17 gm Documented by: Prednisone (Prednisone 20 Mg Tablet) 40 mg PO QAC [facility] Last Admin: 08/17/21 10:41 Dose: 40 mg Documented by: Senna (Sennosides 1 Tablet) 2 tab PO [facility] Last Admin: 08/16/21 20:58 Dose: 2 tab Documented by: Simethicone (Simethicone 80 Mg Tab.Chew) 80 mg CHEWED DAILYP PRN PRN Reason: Dyspepsia Sodium Chloride (0.9 % Sodium Chloride 10 Ml Syringe) 10 ml IV Q8 [facility] Last Admin: 08/17/21 05:42 Dose: 10 ml Documented by: Trazodone HCl (Trazodone Hcl 50 Mg Tablet) 25 mg PO HSP PRN PRN Reason: Insomnia A/P Narrative A/P Narrative: A: *Pneumonia RLL(h/o pseudomonas pna): *AECOPD/Pulmonary Fibrosis: *Acute hypoxic respiratory failure: -on 5-10L oxymask *SIRS: *Probable inferior right pulmonary vein thrombus: started on eliquis early June *Malnutrition, severe, protein: Muscle and subcutaneous fat loss/diminished functional status *FTT: *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 Courtney for vascular disease if in line with patient/family wishes -ppx:eliquis ?DNR Time Spent With Patient Time: Total time spent is greater than 50% in coordination of care (as documented) at patient's floor/unit and/or counseling patient: QUALITY VTE Deep Vein Thrombosis/Pulmonary Embolism Present on Admission: No
[2021-08-17] MEDS: traZODone HCL 50 MG TABLET PO PRN (21:09)
[2021-08-17] MEDS: SENNOSIDES 1 TABLET PO SCH (21:19)
[2021-08-18] MEDS: LORazepam 1 MG TABLET SL PRN (02:35)
[2021-08-18] MEDS: IPRATROPIUM/ALBUTEROL 3 ML AMPUL.NEB NEB SCH ×4 (02:35→22:23)
[2021-08-18] MEDS: 0.9 % SODIUM CHLORIDE 10 ML SYRINGE IV SCH ×2 (05:57→14:37)
[2021-08-18 06:31] LABS: Basophils # (Auto) 0.02 K/mcL (0.00-0.30); Basophils % (Auto) 0.3 % (0.0-2.0); Eosinophils # (Auto) 0.01 K/mcL (0.00-0.70); Eosinophils % (Auto) 0.2 % (0.0-7.0); Hematocrit 27.2 % (34.1-44.9); Lymphocytes % (Auto) 18.1 % (15.5-49.0); Mean Corpuscular HGB Conc 29.4 g/dL (31.0-36.0); Monocytes % (Auto) 9.9 % (1.0-12.0); Neutrophils % (Auto) 71.2 % (38.0-78.0); Platelet Count 223 K/mcL (140-440); RBC 2.64 M/mcL (3.59-5.38); Red Cell Distribution Width 15.2 % (11.5-14.5); WBC 6.1 K/mcL (4.5-11.0)
[2021-08-18 06:50] LABS: ALT/SGPT 7 U/L (<40); AST/SGOT 17 U/L (<32); Albumin/Globulin Ratio 1.2 (1.0-2.3); Alkaline Phosphatase 54 U/L (39-117); Bilirubin,Direct < 0.2 mg/dL (0-0.3); Bilirubin,Total 0.2 mg/dL (0.1-1.0); Blood Urea Nitrogen 22 mg/dL (8-23); Calcium 8.9 mg/dL (8.6-10.4); Carbon Dioxide 21 mmol/L (22-30); Chloride 111 mmol/L (96-108); Globulin 2.5 gm/dL (2.2-3.7); Glomerular Filtration Rate 81; Glucose 107 mg/dL (70-105); Lactate Dehydrogenase 254 U/L (135-225); Phosphorous 2.6 mg/dL (2.5-4.5); Triglycerides 72 mg/dL (<150); Uric Acid 4.3 mg/dL (2.5-8.0)
--- NOTE | 2021-08-18 07:37 | Internal Med Progress Note ---
SUBJECTIVE Subjective Patient information: Note initiated : 08/18/21 at 7:33 am Service Date, if different from initiated Date: [] Patient: Yudi Dotson a 89 y/o F admitted on 08/17/21 for sob. Chief Complaint: [] Interval history: History of present illness: Ms. Dotson is a 89 year old F history of COPD, recently admitted to our facility 2 months ago for pneumonia, presenting with 2 months history of progressive shortness of breath. Patient claims that she has been feeling shortness of breath getting progressively worse since last admissions. She is also committing of productive cough with clear sputum. She is coming of subjective fever and chills. She is coming of general body weakness. She is complaining of chest pain whenever she coughs. She denies respiratory wheezings. She is also complaining of nausea but denies any vomiting. She stated that she does not use oxygen at home. Vital signs significant for tachypnea with rate of breathing in the mid 20s. Labs significant for lack of leukocytosis with WBC 8.2. Lactic acid pending. Procalcitonin pending. COVID screening pending. Chest x-ray showing infiltrate right lung base suggestive of bacterial pneumonia. 08/16: Patient is on 2 L/min of oxygen. Afebrile overnight. Cultures no growth to date. COVID results pending. Patient is complaining of shortness of breath with productive cough with sputum productions. She is complaining of chest pain while coughing. She is complain of headaches as well as back pain. She is coming of general weakness. Continue IV fluid. Continue antibiotics oral Levaquin. Continue supplemental oxygen. 08/17: Rapid response was called last night for increasing degree of shortness of breath as well as anxiety. She was placed on oxygen mask with up to 5 L/min of oxygen and also element was given. She was being transferred to PCU and inpatient status. This morning she is continuing to complaining of worsening degree of shortness of breath as well as anxiety. She also is complaining of cough and respiratory wheezings. She denies any fever or chills. Will change DuoNeb from as needed to scheduled. We will add prednisone in addition to levofloxacin for treatment of bacterial pneumonia plus or minus COPD exacerbations. Continue supplemental oxygen therapy titrate to keep SPO2 above or equal to 88% given COPD. Ativan as needed for anxiety. 08/18 Patient requiring less oxygen today. Overweight CODE STATUS as she was previously a DO NOT RESUSCITATE on last admission and she confirms she is a DNR. Occasional cough and some shortness of breath. Review of Systems: denies headache/fever/chills/nausea/vomiting/chest or abdominal pain/diarrhea. Otherwise see above. Constitutional Vitals: Vital Signs Temp Pulse Resp BP Pulse Ox 98.2 F 98 H 24 H 103/62 96 08/18/21 04:01 08/18/21 06:41 08/18/21 06:41 08/18/21 06:00 08/18/21 06:41 Period Temp Pulse Resp BP Sys/Christiansen Pulse Ox Last 24 Hr 97.1 F-98.2 F 90-127 19-35 99-156/57-111 94-100 Intake and Output 08/17/21 08/18/21 08/18/21 21:59 05:59 13:59 Intake Total 720 240 Output Total 501 250 Balance 219 -10 Weight 43.6 kg Intake & Output: Intake & Output 08/17/21 08/18/21 08/18/21 21:59 05:59 13:59 Intake Total 720 240 Output Total 501 250 Balance 219 -10 Weight 43.6 kg Intake: Oral 720 240 Output: Void Amount 500 # of times incontinent of urine 1 Urine/Stool Mix 250 Other: Meal Dinner Percent of Meal Consumed 75% Feeding Ability Independent Urine Appearance Clear Clear Urine Color Bright Yellow Bright Yellow Stool Size Moderate Stool Color Black Stool Consistency Soft # Bowel Movements 1 Exam: General: Alert, Awake, No acute Distress, cachectic Eyes/N/T: EOMI, Head/Neck: neck supple, CV: tacky but regular, No murmurs, Pulm: Rhonchi/Rales b/l, no wheezing Abd: soft, nontender, +BS x4 Ext: no clubbing/cyanosis/edema Neuro: Alert, no focal deficits, moves all extremities, Skin: warm/dry Psych: Cognitive impairment OBJ DATA Labs CBC & Chem 7: 08/18/21 05:08 08/18/21 05:08 Labs: Abnormal Lab Results 08/18/21 08/18/21 08/17/21 05:08 05:08 05:23 RBC 2.64 L 2.75 L Hgb 8.0 L 8.2 L Hct 27.2 L 28.3 L POC Hct MCV 103.0 H 102.9 H MCHC 29.4 L 29.0 L RDW 15.2 H 15.3 H MPV Neut % (Auto) 82.8 H Lymph % (Auto) 9.3 L Lymph # (Auto) 1.10 L 0.76 L [place] # (Auto) POC VBG pH POC VBG pCO2 at Temp POC VBG pO2 POC VBG HCO3 POC VBG Total CO2 POC Venous O2 Sat POC VBG Base Excess POC Potassium POC Chloride Chloride 111 H Carbon Dioxide 21 L POC Total CO2 Anion Gap 7.0 L POC BUN BUN Glucose 107 H POC Glucose Calcium Lactate Dehydrogenase 254 H Total Protein 5.5 L Albumin 3.0 L POC Troponin I 08/17/21 08/17/21 08/17/21 05:22 01:48 01:45 RBC Hgb Hct POC Hct MCV MCHC RDW MPV Neut % (Auto) Lymph % (Auto) Lymph # (Auto) [place] # (Auto) POC VBG pH 7.28 L POC VBG pCO2 at Temp POC VBG pO2 22 L POC VBG HCO3 21.0 L POC VBG Total CO2 22.0 L POC Venous O2 Sat 30.0 L POC VBG Base Excess -6.0 L POC Potassium POC Chloride Chloride 113 H 109 H Carbon Dioxide 20 L 20 L POC Total CO2 Anion Gap POC BUN BUN 24 H Glucose 123 H 153 H POC Glucose Calcium 8.4 L Lactate Dehydrogenase Total Protein 5.4 L Albumin 2.9 L POC Troponin I 08/17/21 08/16/21 08/16/21 01:45 05:42 05:42 RBC 2.99 L 3.24 L Hgb 9.6 L 9.7 L Hct 33.5 L 33.7 L POC Hct MCV 112.0 H 104.0 H MCHC 28.7 L 28.8 L RDW 15.8 H 15.0 H MPV 10.5 H Neut % (Auto) Lymph % (Auto) Lymph # (Auto) [place] # (Auto) 0.92 H POC VBG pH POC VBG pCO2 at Temp POC VBG pO2 POC VBG HCO3 POC VBG Total CO2 POC Venous O2 Sat POC VBG Base Excess POC Potassium POC Chloride Chloride 112 H Carbon Dioxide 21 L POC Total CO2 Anion Gap POC BUN BUN Glucose POC Glucose Calcium Lactate Dehydrogenase Total Protein Albumin POC Troponin I 08/15/21 08/15/21 08/15/21 19:29 19:25 19:24 RBC Hgb Hct POC Hct 29.0 L MCV MCHC RDW MPV Neut % (Auto) Lymph % (Auto) Lymph # (Auto) [place] # (Auto) POC VBG pH POC VBG pCO2 at Temp 32.8 L POC VBG pO2 POC VBG HCO3 19.7 L POC VBG Total CO2 21.0 L POC Venous O2 Sat POC VBG Base Excess -5.0 L POC Potassium 3.2 L POC Chloride 110 H Chloride Carbon Dioxide POC Total CO2 20.0 L Anion Gap POC BUN 29 H BUN Glucose POC Glucose 145 H Calcium Lactate Dehydrogenase Total Protein Albumin POC Troponin I 0.01 L 08/15/21 08/15/21 19:24 19:24 RBC 2.96 L Hgb 9.1 L Hct 29.9 L POC Hct MCV 101.0 H MCHC 30.4 L RDW 15.1 H MPV Neut % (Auto) Lymph % (Auto) Lymph # (Auto) 1.37 L [place] # (Auto) POC VBG pH POC VBG pCO2 at Temp POC VBG pO2 POC VBG HCO3 POC VBG Total CO2 POC Venous O2 Sat POC VBG Base Excess POC Potassium POC Chloride Chloride Carbon Dioxide POC Total CO2 Anion Gap POC BUN BUN Glucose POC Glucose Calcium Lactate Dehydrogenase Total Protein 5.6 L Albumin POC Troponin I Meds: Medications Hydrocodone Bitart/Acetaminophen (Hydrocodone/Apap 10/325mg Tablet) 1 tab PO TIDP PRN; Protocol PRN Reason: Pain Last Admin: 08/17/21 21:09 Dose: 1 tab Documented by: Albuterol Sulfate (Albuterol Sulfate 2.5 Mg/3 Ml Nebulizer) 2.5 mg INH Q4H PRN PRN Reason: shortness of breath Last Admin: 08/17/21 01:14 Dose: 2.5 mg Documented by: Albuterol/Ipratropium (Ipratropium/Albuterol 3 Ml Ampul.Neb) 3 ml NEB Q4HRT [facility] Last Admin: 08/18/21 02:35 Dose: 3 ml Documented by: Apixaban (Apixaban 5 Mg Tablet) 2.5 mg PO BID [facility] Last Admin: 08/17/21 21:08 Dose: 2.5 mg Documented by: Docusate Sodium (Docusate Sodium 100 Mg Capsule) 100 mg PO BID [facility] Last Admin: 08/17/21 21:19 Dose: Not Given Documented by: Fluticasone Propionate (Fluticasone Propionate [place].Vinayak) 2 spray NS BID [facility] Last Admin: 08/17/21 19:30 Dose: Not Given Documented by: Guaifenesin (Guaifenesin/Dextromethorphan Oral Ayse) 10 ml PO Q4HP PRN PRN Reason: Cough Sodium Chloride (Sodium Chloride 0.9%) 1,000 mls @ 0 mls/hr IV .Q0M [facility] Levofloxacin (Levofloxacin 500 Mg Tablet) 500 mg PO DAILY [facility]; Protocol Last Admin: 08/17/21 08:10 Dose: 500 mg Documented by: Lorazepam (Lorazepam 1 Mg Tablet) 0.5 mg SL Q4HP PRN PRN Reason: Anxiety Last Admin: 08/18/21 02:35 Dose: 0.5 mg Documented by: Nicotine (Nicotine 21 Mg Patch) 21 mg TOPICAL DAILY@1000 [facility] Last Admin: 08/17/21 15:15 Dose: 21 mg Documented by: Ondansetron HCl (Ondansetron 4 Mg/2 Ml Vial) 4 mg IV Q6HP PRN PRN Reason: Nausea And Vomiting Fluticasone Furoate- Umeclidinium- Vilanterol [Breo Ellipta] 100/62.5/25 Mcg Inhaler 1 dose INH DAILY [facility] Last Admin: 08/17/21 08:12 Dose: 1 dose Documented by: Magnesium Citrate (125 Mg Capsule) 1 dose PO QHS [facility] Last Admin: 08/17/21 19:30 Dose: Not Given Documented by: Polyethylene Glycol (Polyethylene Glycol 3350 17 Gm Packet) 17 gm PO QDAY [facility] Last Admin: 08/17/21 08:10 Dose: 17 gm Documented by: Prednisone (Pred[facility]one 20 Mg Tablet) [facility] Last Admin: 08/17/21 10:41 Dose: 40 mg Documented by: Senna (Sennosides 1 Tablet) 2 tab PO [facility] Last Admin: 08/17/21 21:19 Dose: Not Given Documented by: Simethicone (Simethicone 80 Mg Tab.Chew) 80 mg CHEWED DAILYP PRN PRN Reason: Dyspepsia Sodium Chloride (0.9 % Sodium Chloride 10 Ml Syringe) 10 ml IV Q8 [facility] Last Admin: 08/18/21 05:57 Dose: 10 ml Documented by: Trazodone HCl (Trazodone Hcl 50 Mg Tablet) 25 mg PO HSP PRN PRN Reason: Insomnia Last Admin: 08/17/21 21:09 Dose: 25 mg Documented by: A/P Narrative A/P Narrative: A: *Pneumonia RLL(h/o pseudomonas pna): *AECOPD/Pulmonary Fibrosis: *Acute hypoxic respiratory failure: -now on 1L NC *SIRS: tachycardia *Probable inferior right pulmonary vein thrombus: started on eliquis early June *Malnutrition, severe, protein: Muscle and subcutaneous fat loss/diminished functional status *FTT: *Dementia likely: *CKD III: *Macrocytic Anemia, chronic: b12/folate wnl *Chronic pain, abd/other: *COPD: *Tobacco abuse: *Significant peripheral arterial disease/CAROLA: *Recently on hospice: Withdrew because she did not want to go into a facility P: -Levaquin -IS/Acapella, prn nebs -Steroids(wean) -O2 wean as able -Dietary consult -Smoking cessation counseling >3 minutes -CM for placement -Follow-up with Dr. Courtney for vascular disease if in line with patient/family w ishes -ppx:eliquis DNR Time Spent With Patient Time: Total time spent is greater than 50% in coordination of care (as documented) at patient's floor/unit and/or counseling patient: Total time spent with greater than 50% in coordination of care (as documented) at patient's floor/unit and/or counseling patient:: 25 - 35 minutes QUALITY VTE Deep Vein Thrombosis/Pulmonary Embolism Present on Admission: No
[2021-08-18] MEDS: LEVOFLOXACIN 500 MG TABLET PO SCH (08:47)
[2021-08-18] MEDS: POLYETHYLENE GLYCOL 3350 17 GM PACKET PO SCH ×2 (08:47→15:50)
[2021-08-18] MEDS: FLUTICASONE PROPIONATE SPRAY.NAS NS SCH ×2 (08:48→20:25)
[2021-08-18] MEDS: DOCUSATE SODIUM 100 MG CAPSULE PO SCH ×2 (08:48→20:58)
[2021-08-18] MEDS: HYDROcodone/APAP 10/325MG TABLET PO PRN ×3 (08:48→19:12)
[2021-08-18] MEDS: APIXABAN 5 MG TABLET PO SCH ×2 (08:48→20:39)
[2021-08-18] MEDS: predniSONE 20 MG TABLET PO SCH (08:48)
[2021-08-18] MEDS: NICOTINE 21 MG PATCH TOPICAL SCH (08:50)
[2021-08-18] MEDS: [UNRECOGNIZED DRUG - OTHER] INH SCH (08:50)
[2021-08-18] MEDS: hydrOXYzine 25 MG TABLET PO PRN ×2 (15:38→20:39)
[2021-08-18] MEDS ORDERED: METOPROLOL TARTRATE 5 MG/5 ML VIAL IV ONE (16:54)
--- NOTE | 2021-08-18 17:32 | XRay Report ---
INDICATION: Abdominal pain/distention TECHNIQUE: Supine abdomen. COMPARISON: Previous abdomen dated 07/31/2021. Previous chest x-ray dated 08/17/2021 FINDINGS:Moderately distended gas-filled stomach. There is gas within the colon. No dilated gas-filled small bowel. No evidence for mechanical small bowel obstruction. There is no pneumobilia. No portal venous gas. No pneumatosis. There is left lower lobe consolidation or atelectasis. There is a right pleural effusion. Appearance is unchanged since chest x-ray dated 08/17/2021 IMPRESSION: 1. Nonspecific bowel gas pattern. No evidence for mechanical small bowel obstruction 2. Left lower lobe consolidation or volume loss. Right pleural effusion and right basilar infiltrate Interpreted and Authenticated by: Yomi Mclain 08/18/21
[2021-08-18] MEDS ORDERED: FUROSEMIDE 40 MG/4 ML VIAL IV ONE (17:45)
[2021-08-18] MEDS ORDERED: ALBUMIN HUMAN 12.5 GM/50 ML BAG IV ONE (17:45)
[2021-08-18] MEDS: METOCLOPRAMIDE 10 MG/2 ML VIAL IV SCH (18:18)
[2021-08-18] MEDS: traZODone HCL 50 MG TABLET PO PRN (20:39)
[2021-08-18] MEDS: SENNOSIDES 1 TABLET PO SCH (20:58)
[2021-08-19] MEDS: 0.9 % SODIUM CHLORIDE 10 ML SYRINGE IV SCH ×4 (00:31→21:14)
[2021-08-19] MEDS: METOCLOPRAMIDE 10 MG/2 ML VIAL IV SCH ×2 (00:31→07:40)
[2021-08-19] MEDS: IPRATROPIUM/ALBUTEROL 3 ML AMPUL.NEB NEB SCH ×3 (06:00→21:22)
[2021-08-19] MEDS ORDERED: hydrOXYzine 25 MG TABLET PO PRN (07:31)
[2021-08-19] MEDS ORDERED: OLANZapine 5 MG TABLET PO PRN (07:31)
--- NOTE | 2021-08-19 07:33 | Internal Med Progress Note ---
SUBJECTIVE Subjective Patient information: Note initiated : 08/19/21 at 7:26 am Service Date, if different from initiated Date: [] Patient: Yudi Dotson a 89 y/o F admitted on 08/17/21 for sob. Chief Complaint: [] Interval history: History of present illness: Ms. Dotson is a 89 year old F history of COPD, recently admitted to our facility 2 months ago for pneumonia, presenting with 2 months history of progressive shortness of breath. Patient claims that she has been feeling shortness of breath getting progressively worse since last admissions. She is also committing of productive cough with clear sputum. She is coming of subjective fever and chills. She is coming of general body weakness. She is complaining of chest pain whenever she coughs. She denies respiratory wheezings. She is also complaining of nausea but denies any vomiting. She stated that she does not use oxygen at home. Vital signs significant for tachypnea with rate of breathing in the mid 20s. Labs significant for lack of leukocytosis with WBC 8.2. Lactic acid pending. Procalcitonin pending. COVID screening pending. Chest x-ray showing infiltrate right lung base suggestive of bacterial pneumonia. 08/16: Patient is on 2 L/min of oxygen. Afebrile overnight. Cultures no growth to date. COVID results pending. Patient is complaining of shortness of breath with productive cough with sputum productions. She is complaining of chest pain while coughing. She is complain of headaches as well as back pain. She is coming of general weakness. Continue IV fluid. Continue antibiotics oral Levaquin. Continue supplemental oxygen. 08/17: Rapid response was called last night for increasing degree of shortness of breath as well as anxiety. She was placed on oxygen mask with up to 5 L/min of oxygen and also element was given. She was being transferred to PCU and inpatient status. This morning she is continuing to complaining of worsening degree of shortness of breath as well as anxiety. She also is complaining of cough and respiratory wheezings. She denies any fever or chills. Will change DuoNeb from as needed to scheduled. We will add prednisone in addition to levofloxacin for treatment of bacterial pneumonia plus or minus COPD exacerbations. Continue supplemental oxygen therapy titrate to keep SPO2 above or equal to 88% given COPD. Ativan as needed for anxiety. 08/18 Patient requiring less oxygen today. Overweight CODE STATUS as she was previously a DO NOT RESUSCITATE on last admission and she confirms she is a DNR. Occasional cough and some shortness of breath. 08/19 Per nurse patient has good saturations at rest but with movement desats. Currently on 2 L with good sats. Echo pending and BMP pending. we will give Lasix today. Patient has cough and shortness of breath. Also complains of headaches. Review of Systems: denies headache/fever/chills/nausea/vomiting/chest or abdominal pain/diarrhea. Otherwise see above. Constitutional Vitals: Vital Signs Temp Pulse Resp BP Pulse Ox 98.7 F 94 H 19 130/76 100 08/19/21 04:00 08/19/21 06:00 08/19/21 06:00 08/19/21 06:00 08/19/21 06:00 Period Temp Pulse Resp BP Sys/Christiansen Pulse Ox Last 24 Hr 97.4 F-99 F 94-122 19-36 99-137/65-91 90-100 Intake and Output 08/18/21 08/19/21 08/19/21 21:59 05:59 13:59 Intake Total 950 210 Output Total 1151 300 Balance -201 -90 Weight 43.7 kg Intake & Output: Intake & Output 08/18/21 08/19/21 08/19/21 21:59 05:59 13:59 Intake Total 950 210 Output Total 1151 300 Balance -201 -90 Weight 43.7 kg Intake: IV 50 Oral 900 210 Output: Urine Catheter Amount 750 Void Amount 400 300 # of times incontinent of urine 1 Other: Meal Lunch Percent of Meal Consumed 100% Feeding Ability Independent Urine Appearance Clear Clear Urine Color Pale Pale Stool Size Smear Stool Color Brown # Voids 1 Exam: General: Alert, Awake, No acute Distress, cachectic Eyes/N/T: EOMI, Head/Neck: neck supple, CV: tacky but regular, No murmurs, Pulm: mild Rhonchi/Rales b/l, no wheezing Abd: soft, nontender, +BS x4 Ext: no clubbing/cyanosis/edema Neuro: Alert, no focal deficits, moves all extremities, Skin: warm/dry Psych: Cognitive impairment OBJ DATA Labs CBC & Chem 7: 08/18/21 05:08 08/18/21 05:08 Labs: Abnormal Lab Results 08/18/21 08/18/21 08/17/21 05:08 05:08 05:23 RBC 2.64 L 2.75 L Hgb 8.0 L 8.2 L Hct 27.2 L 28.3 L MCV 103.0 H 102.9 H MCHC 29.4 L 29.0 L RDW 15.2 H 15.3 H MPV Neut % (Auto) 82.8 H Lymph % (Auto) 9.3 L Lymph # (Auto) 1.10 L 0.76 L [place] # (Auto) POC VBG pH POC VBG pO2 POC VBG HCO3 POC VBG Total CO2 POC Venous O2 Sat POC VBG Base Excess Chloride 111 H Carbon Dioxide 21 L Anion Gap 7.0 L BUN Glucose 107 H Calcium Lactate Dehydrogenase 254 H Total Protein 5.5 L Albumin 3.0 L 08/17/21 08/17/21 08/17/21 05:22 01:48 01:45 RBC Hgb Hct MCV MCHC RDW MPV Neut % (Auto) Lymph % (Auto) Lymph # (Auto) [place] # (Auto) POC VBG pH 7.28 L POC VBG pO2 22 L POC VBG HCO3 21.0 L POC VBG Total CO2 22.0 L POC Venous O2 Sat 30.0 L POC VBG Base Excess -6.0 L Chloride 113 H 109 H Carbon Dioxide 20 L 20 L Anion Gap BUN 24 H Glucose 123 H 153 H Calcium 8.4 L Lactate Dehydrogenase Total Protein 5.4 L Albumin 2.9 L 08/17/21 01:45 RBC 2.99 L Hgb 9.6 L Hct 33.5 L MCV 112.0 H MCHC 28.7 L RDW 15.8 H MPV 10.5 H Neut % (Auto) Lymph % (Auto) Lymph # (Auto) [place] # (Auto) 0.92 H POC VBG pH POC VBG pO2 POC VBG HCO3 POC VBG Total CO2 POC Venous O2 Sat POC VBG Base Excess Chloride Carbon Dioxide Anion Gap BUN Glucose Calcium Lactate Dehydrogenase Total Protein Albumin Meds: Medications Hydrocodone Bitart/Acetaminophen (Hydrocodone/Apap 10/325mg Tablet) 1 tab PO TIDP PRN; Protocol PRN Reason: Pain Last Admin: 08/18/21 19:12 Dose: 1 tab Documented by: Albuterol Sulfate (Albuterol Sulfate 2.5 Mg/3 Ml Nebulizer) 2.5 mg INH Q4H PRN PRN Reason: shortness of breath Last Admin: 08/17/21 01:14 Dose: 2.5 mg Documented by: Albuterol/Ipratropium (Ipratropium/Albuterol 3 Ml Ampul.Neb) 3 ml NEB Q8 [facility] Last Admin: 08/19/21 06:00 Dose: Not Given Documented by: Apixaban (Apixaban 5 Mg Tablet) 2.5 mg PO BID [facility] Last Admin: 08/18/21 20:39 Dose: 2.5 mg Documented by: Docusate Sodium (Docusate Sodium 100 Mg Capsule) 100 mg PO BID [facility] Last Admin: 08/18/21 20:58 Dose: Not Given Documented by: Fluticasone Propionate (Fluticasone Propionate [place].Vinayak) 2 spray NS BID [facility] Last Admin: 08/18/21 20:25 Dose: Not Given Documented by: Guaifenesin (Guaifenesin/Dextromethorphan Oral Ayse) 10 ml PO Q4HP PRN PRN Reason: Cough Hydroxyzine HCl (Hydroxyzine 25 Mg Tablet) 50 mg PO TIDP PRN PRN Reason: Anxiety Last Admin: 08/18/21 20:39 Dose: 50 mg Documented by: Sodium Chloride (Sodium Chloride 0.9%) 1,000 mls @ 0 mls/hr IV .Q0M [facility] Levofloxacin (Levofloxacin 500 Mg Tablet) 500 mg PO DAILY [facility]; Protocol Last Admin: 08/18/21 08:47 Dose: 500 mg Documented by: Lorazepam (Lorazepam 1 Mg Tablet) 0.5 mg SL Q4HP PRN PRN Reason: Anxiety Last Admin: 08/18/21 02:35 Dose: 0.5 mg Documented by: Metoclopramide HCl (Metoclopramide 10 Mg/2 Ml Vial) 10 mg IV ACHS [facility] Stop: 08/19/21 07:31 Last Admin: 08/19/21 00:31 Dose: 10 mg Documented by: Nicotine (Nicotine 21 Mg Patch) 21 mg TOPICAL DAILY@1000 [facility] Last Admin: 08/18/21 08:50 Dose: 21 mg Documented by: Ondansetron HCl (Ondansetron 4 Mg/2 Ml Vial) 4 mg IV Q6HP PRN PRN Reason: Nausea And Vomiting Fluticasone Furoate- Umeclidinium- Vilanterol [Breo Ellipta] 100/62.5/25 Mcg Inhaler 1 dose INH DAILY [facility] Last Admin: 08/18/21 08:50 Dose: 1 dose Documented by: Magnesium Citrate (125 Mg Capsule) 1 dose PO QHS [facility] Last Admin: 08/18/21 20:24 Dose: Not Given Documented by: Polyethylene Glycol (Polyethylene Glycol 3350 17 Gm Packet) 17 gm PO QDAY [facility] Last Admin: 08/18/21 15:50 Dose: Not Given Documented by: Prednisone (Pred[facility] 20 Mg Tablet) [facility] Last Admin: 08/18/21 08:48 Dose: 40 mg Documented by: Senna (Sennosides 1 Tablet) 2 tab PO [facility] Last Admin: 08/18/21 20:58 Dose: Not Given Documented by: Simethicone (Simethicone 80 Mg Tab.Chew) 80 mg CHEWED DAILYP PRN PRN Reason: Dyspepsia Last Admin: 08/18/21 17:44 Dose: 80 mg Documented by: Simethicone (Simethicone 80 Mg Tab.Chew) 80 mg CHEWED AC [facility] Stop: 08/20/21 07:01 Sodium Chloride (0.9 % Sodium Chloride 10 Ml Syringe) 10 ml IV Q8 [facility] Last Admin: 08/19/21 06:00 Dose: 10 ml Documented by: Trazodone HCl (Trazodone Hcl 50 Mg Tablet) 25 mg PO HSP PRN PRN Reason: Insomnia Last Admin: 08/18/21 20:39 Dose: 25 mg Documented by: A/P Narrative A/P Narrative: A: *Acute on chronic CHF: *?Pneumonia (h/o pseudomonas pna): *Acute hypoxic respiratory failure: -now on 2L NC *COPD(not on home O2)/Pulmonary Fibrosis: *SIRS: tachycardia improving *Probable inferior right pulmonary vein thrombus: started on eliquis early June *Malnutrition, severe, protein: Muscle and subcutaneous fat loss/diminished functional status *FTT: *Dementia likely: *CKD III: *Macrocytic Anemia, chronic: b12/folate wnl *Chronic pain, abd/other: *COPD: *Tobacco abuse: *Significant peripheral arterial disease/CAROLA: *Recently on hospice: Withdrew because she did not want to go into a facility P: -IV lasix -echo pending -Levaquin -IS/Acapella, prn nebs -Steroids(wean) -O2 wean as able -Dietary consult -Smoking cessation counseling -CM for placement -Follow-up with Dr. Courtney for vascular disease if in line with patient/family wishes -ppx:eliquis DNR Time Spent With Patient Time: Total time spent is greater than 50% in coordination of care (as documented) at patient's floor/unit and/or counseling patient: Total time spent with greater than 50% in coordination of care (as documented) at patient's floor/unit and/or counseling patient:: 25 - 35 minutes QUALITY VTE Deep Vein Thrombosis/Pulmonary Embolism Present on Admission: No
[2021-08-19] MEDS: SIMETHICONE 80 MG TAB.CHEW CHEWED SCH ×3 (07:40→17:15)
[2021-08-19] MEDS: HYDROcodone/APAP 10/325MG TABLET PO PRN ×3 (07:42→19:56)
[2021-08-19] MEDS: DOCUSATE SODIUM 100 MG CAPSULE PO SCH ×2 (08:22→21:14)
[2021-08-19] MEDS: predniSONE 20 MG TABLET PO SCH (08:22)
[2021-08-19] MEDS: FLUTICASONE PROPIONATE SPRAY.NAS NS SCH ×2 (08:23→21:15)
[2021-08-19] MEDS: LEVOFLOXACIN 500 MG TABLET PO SCH (08:23)
[2021-08-19] MEDS: APIXABAN 5 MG TABLET PO SCH ×2 (08:23→21:13)
[2021-08-19] MEDS: POLYETHYLENE GLYCOL 3350 17 GM PACKET PO SCH (08:23)
[2021-08-19] MEDS: [UNRECOGNIZED DRUG - OTHER] INH SCH (08:24)
[2021-08-19] MEDS ORDERED: FUROSEMIDE 40 MG/4 ML VIAL IV ONE (09:07)
[2021-08-19] MEDS ORDERED: ALBUMIN HUMAN 12.5 GM/50 ML BAG IV ONE (09:07)
[2021-08-19] MEDS ORDERED: POTASSIUM CHLORIDE 20 MEQ TABLET PO ONE (09:08)
[2021-08-19] MEDS: NICOTINE 21 MG PATCH TOPICAL SCH (10:04)
[2021-08-19] MEDS: ALBUTEROL SULFATE 2.5 MG/3 ML NEBULIZER INH PRN (10:04)
[2021-08-19] MEDS: SENNOSIDES 1 TABLET PO SCH (21:13)
[2021-08-19] MEDS: MELATONIN 3 MG TABLET PO SCH (21:13)
[2021-08-19] MEDS: hydrOXYzine 25 MG TABLET PO PRN (21:14)
[2021-08-19] MEDS: traZODone HCL 50 MG TABLET PO PRN (21:14)
[2021-08-19] MEDS ORDERED: NICOTINE POLACRILEX 2 MG GUM CHEW/PARK PRN (22:55)
[2021-08-19] MEDS: NICOTINE 14 MG PATCH TOPICAL SCH (23:18)
[2021-08-19] MEDS ORDERED: NICOTINE 14 MG PATCH ONE (23:22)
[2021-08-20] MEDS: IPRATROPIUM/ALBUTEROL 3 ML AMPUL.NEB NEB SCH ×3 (05:45→21:28)
[2021-08-20] MEDS: HYDROcodone/APAP 10/325MG TABLET PO PRN ×3 (05:45→21:10)
[2021-08-20] MEDS: 0.9 % SODIUM CHLORIDE 10 ML SYRINGE IV SCH ×3 (05:45→21:17)
--- NOTE | 2021-08-20 07:40 | Internal Med Progress Note ---
SUBJECTIVE Subjective Patient information: Note initiated : 08/20/21 at 7:36 am Service Date, if different from initiated Date: [] Patient: Yudi Dotson a 89 y/o F admitted on 08/17/21 for sob. Chief Complaint: [] Interval history: History of present illness: Ms. Dotson is a 89 year old F history of COPD, recently admitted to our facility 2 months ago for pneumonia, presenting with 2 months history of progressive shortness of breath. Patient claims that she has been feeling shortness of breath getting progressively worse since last admissions. She is also committing of productive cough with clear sputum. She is coming of subjective fever and chills. She is coming of general body weakness. She is complaining of chest pain whenever she coughs. She denies respiratory wheezings. She is also complaining of nausea but denies any vomiting. She stated that she does not use oxygen at home. Vital signs significant for tachypnea with rate of breathing in the mid 20s. Labs significant for lack of leukocytosis with WBC 8.2. Lactic acid pending. Procalcitonin pending. COVID screening pending. Chest x-ray showing infiltrate right lung base suggestive of bacterial pneumonia. 08/16: Patient is on 2 L/min of oxygen. Afebrile overnight. Cultures no growth to date. COVID results pending. Patient is complaining of shortness of breath with productive cough with sputum productions. She is complaining of chest pain while coughing. She is complain of headaches as well as back pain. She is coming of general weakness. Continue IV fluid. Continue antibiotics oral Levaquin. Continue supplemental oxygen. 08/17: Rapid response was called last night for increasing degree of shortness of breath as well as anxiety. She was placed on oxygen mask with up to 5 L/min of oxygen and also element was given. She was being transferred to PCU and inpatient status. This morning she is continuing to complaining of worsening degree of shortness of breath as well as anxiety. She also is complaining of cough and respiratory wheezings. She denies any fever or chills. Will change DuoNeb from as needed to scheduled. We will add prednisone in addition to levofloxacin for treatment of bacterial pneumonia plus or minus COPD exacerbations. Continue supplemental oxygen therapy titrate to keep SPO2 above or equal to 88% given COPD. Ativan as needed for anxiety. 08/18 Patient requiring less oxygen today. Overweight CODE STATUS as she was previously a DO NOT RESUSCITATE on last admission and she confirms she is a DNR. Occasional cough and some shortness of breath. 08/19 Per nurse patient has good saturations at rest but with movement desats. Currently on 2 L with good sats. Echo pending and BMP pending. we will give Lasix today. Patient has cough and shortness of breath. Also complains of headaches. 08/20 Patient now on 1 L nasal cannula. Chest x-ray follow-up improving. Awaiting echo results. Hold Lasix today. Check hemoglobin for worsening anemia. Hypokalemia on today's labs. Review of Systems: denies headache/fever/chills/nausea/vomiting/chest or abdominal pain/diarrhea. Otherwise see above. Constitutional Vitals: Vital Signs Temp Pulse Resp BP Pulse Ox 98.4 F 108 H 20 122/78 92 08/20/21 04:00 08/20/21 04:00 08/20/21 04:00 08/20/21 04:00 08/20/21 04:00 Period Temp Pulse Resp BP Sys/Christiansen Pulse Ox Last 24 Hr 97.6 F-98.8 F 107-126 16-35 107-142/62-89 90-100 Intake and Output 08/19/21 08/20/21 08/20/21 21:59 05:59 13:59 Output Total 300 125 Balance -300 -125 Weight 42.366 kg Intake & Output: Intake & Output 08/19/21 08/20/21 08/20/21 21:59 05:59 13:59 Output Total 300 125 Balance -300 -125 Weight 42.366 kg Output: Void Amount 300 125 Other: Urine Color Pale Exam: General: Alert, Awake, No acute Distress, cachectic Eyes/N/T: EOMI, Head/Neck: neck supple, CV: mildly tacky but regular, No murmurs, Pulm: improved mild Rhonchi/Rales b/l, no wheezing Abd: soft, nontender, +BS x4 Ext: no clubbing/cyanosis/edema Neuro: Alert, no focal deficits, moves all extremities, Skin: warm/dry Psych: Cognitive impairment OBJ DATA Labs CBC & Chem 7: 08/18/21 05:08 08/20/21 06:24 Labs: Abnormal Lab Results 08/19/21 08/18/21 08/18/21 07:46 05:08 05:08 RBC 2.64 L Hgb 8.0 L Hct 27.2 L MCV 103.0 H MCHC 29.4 L RDW 15.2 H Lymph # (Auto) 1.10 L Chloride 111 H Carbon Dioxide 21 L Anion Gap 7.0 L Glucose 107 H Lactate Dehydrogenase 254 H NT-Pro-B Natriuret Pep 67866.0 H Total Protein 5.5 L Albumin 3.0 L Meds: Medications Hydrocodone Bitart/Acetaminophen (Hydrocodone/Apap 10/325mg Tablet) 1 tab PO TIDP PRN; Protocol PRN Reason: Pain Last Admin: 08/20/21 05:45 Dose: 1 tab Documented by: Albuterol Sulfate (Albuterol Sulfate 2.5 Mg/3 Ml Nebulizer) 2.5 mg INH Q4H PRN PRN Reason: shortness of breath Last Admin: 08/19/21 10:04 Dose: 2.5 mg Documented by: Albuterol/Ipratropium (Ipratropium/Albuterol 3 Ml Ampul.Neb) 3 ml NEB Q8 [facility] Last Admin: 08/20/21 05:45 Dose: 3 ml Documented by: Apixaban (Apixaban 5 Mg Tablet) 2.5 mg PO BID [facility] Last Admin: 08/19/21 21:13 Dose: 2.5 mg Documented by: Docusate Sodium (Docusate Sodium 100 Mg Capsule) 100 mg PO BID [facility] Last Admin: 08/19/21 21:14 Dose: 100 mg Documented by: Fluticasone Propionate (Fluticasone Propionate [place].Vinayak) 2 spray NS BID [facility] Last Admin: 08/19/21 21:15 Dose: Not Given Documented by: Guaifenesin (Guaifenesin/Dextromethorphan Oral Ayse) 10 ml PO Q4HP PRN PRN Reason: Cough Hydroxyzine HCl (Hydroxyzine 25 Mg Tablet) 50 mg PO TIDP PRN PRN Reason: Anxiety Last Admin: 08/19/21 21:14 Dose: 50 mg Documented by: Hydroxyzine HCl (Hydroxyzine 25 Mg Tablet) 50 mg PO TIDP PRN PRN Reason: anxiety Levofloxacin (Levofloxacin 500 Mg Tablet) 500 mg PO DAILY [facility]; Protocol Stop: 08/20/21 09:01 Last Admin: 08/19/21 08:23 Dose: 500 mg Documented by: Melatonin (Melatonin 3 Mg Tablet) 3 mg PO QHS [facility] Last Admin: 08/19/21 21:13 Dose: 3 mg Documented by: Nicotine (Nicotine 21 Mg Patch) 21 mg TOPICAL DAILY@1000 [facility] Last Admin: 08/19/21 10:04 Dose: 21 mg Documented by: Nicotine (Nicotine 14 Mg Patch) 14 mg TOPICAL DAILY@1000 [facility] Last Admin: 08/19/21 23:18 Dose: 14 mg Documented by: Nicotine Polacrilex (Nicotine Polacrilex 2 Mg Gum) 2 mg CHEW/PARK Q4HP PRN PRN Reason: Nicotine Cravings Olanzapine (Olanzapine 5 Mg Tablet) 5 mg PO HSP PRN PRN Reason: Agitation Ondansetron HCl (Ondansetron 4 Mg/2 Ml Vial) 4 mg IV Q6HP PRN PRN Reason: Nausea And Vomiting Fluticasone Furoate- Umeclidinium- Vilanterol [Breo Ellipta] 100/62.5/25 Mcg Inh aler 1 dose INH DAILY [facility] Last Admin: 08/19/21 08:24 Dose: 1 dose Documented by: Magnesium Citrate (125 Mg Capsule) 1 dose PO QHS [facility] Last Admin: 08/19/21 21:15 Dose: Not Given Documented by: Polyethylene Glycol (Polyethylene Glycol 3350 17 Gm Packet) 17 gm PO QDAY [facility] Last Admin: 08/19/21 08:23 Dose: 17 gm Documented by: Prednisone (Prednisone 20 Mg Tablet) 40 mg PO [facility] Last Admin: 08/19/21 08:22 Dose: 40 mg Documented by: Senna (Sennosides 1 Tablet) 2 tab PO [facility] Last Admin: 08/19/21 21:13 Dose: 2 tab Documented by: Simethicone (Simethicone 80 Mg Tab.Chew) 80 mg CHEWED DAILYP PRN PRN Reason: Dyspepsia Last Admin: 08/18/21 17:44 Dose: 80 mg Documented by: Sodium Chloride (0.9 % Sodium Chloride 10 Ml Syringe) 10 ml IV Q8 [facility] Last Admin: 08/20/21 05:45 Dose: 10 ml Documented by: Trazodone HCl (Trazodone Hcl 50 Mg Tablet) 25 mg PO HSP PRN PRN Reason: Insomnia Last Admin: 08/19/21 21:14 Dose: 25 mg Documented by: A/P Narrative A/P Narrative: A: *Acute on chronic CHF: -improved *?Pneumonia (h/o pseudomonas pna): *Acute hypoxic respiratory failure: -now on 1L NC *COPD(not on home O2)/Pulmonary Fibrosis: *SIRS: tachycardia improving *Probable inferior right pulmonary vein thrombus: started on eliquis early June *Malnutrition, severe, protein: Muscle and subcutaneous fat loss/diminished functional status *FTT: *Dementia likely: *CKD III: *Macrocytic Anemia, acute on chronic: b12/folate wnl, guaiac neg *Chronic pain, abd/other: *COPD(has not been on O2): *Tobacco abuse: *Significant peripheral arterial disease/CAROLA: *Recently on hospice: Withdrew because she did not want to go into a facility P: -IV lasix hold -echo pending -Levaquin -IS/Acapella, prn nebs -Steroids(wean) -O2 wean as able, may need home o2 with copd/pulm fibrosis/chf -Electrolyte replacement -Dietary consult -Smoking cessation counseling -CM for placement -Follow-up with Dr. Courtney for vascular disease if in line with patient/family wishes -ppx:eliquis DNR Time Spent With Patient Time: Total time spent is greater than 50% in coordination of care (as documented) at patient's floor/unit and/or counseling patient: Total time spent with greater than 50% in coordination of care (as documented) at patient's floor/unit and/or counseling patient:: 25 - 35 minutes QUALITY VTE Deep Vein Thrombosis/Pulmonary Embolism Present on Admission: No
[2021-08-20 08:47] LABS: ALT/SGPT 16 U/L (<40); AST/SGOT 19 U/L (<32); Albumin 3.6 gm/dL (3.2-5.2); Albumin/Globulin Ratio 1.6 (1.0-2.3); Alkaline Phosphatase 51 U/L (39-117); Bilirubin,Direct < 0.2 mg/dL (0-0.3); Bilirubin,Total 0.2 mg/dL (0.1-1.0); Blood Urea Nitrogen 24 mg/dL (8-23); Calcium 9.3 mg/dL (8.6-10.4); Carbon Dioxide 25 mmol/L (22-30); Chloride 106 mmol/L (96-108); Globulin 2.3 gm/dL (2.2-3.7); Glomerular Filtration Rate 77; Glucose 93 mg/dL (70-105); Lactate Dehydrogenase 253 U/L (135-225); Phosphorous 3.2 mg/dL (2.5-4.5); Triglycerides 88 mg/dL (<150); Uric Acid 5.7 mg/dL (2.5-8.0)
[2021-08-20] MEDS ORDERED: POTASSIUM CHLORIDE 20 MEQ TABLET PO ONE (09:12)
[2021-08-20] MEDS: FLUTICASONE PROPIONATE SPRAY.NAS NS SCH ×2 (09:17→21:09)
[2021-08-20] MEDS: SIMETHICONE 80 MG TAB.CHEW CHEWED SCH (09:22)
[2021-08-20] MEDS: [UNRECOGNIZED DRUG - OTHER] INH SCH (09:22)
[2021-08-20] MEDS: NICOTINE 14 MG PATCH TOPICAL SCH (09:22)
[2021-08-20] MEDS: APIXABAN 5 MG TABLET PO SCH ×2 (09:22→21:09)
[2021-08-20] MEDS: NICOTINE 21 MG PATCH TOPICAL SCH (09:22)
[2021-08-20] MEDS: DOCUSATE SODIUM 100 MG CAPSULE PO SCH ×2 (09:23→21:09)
[2021-08-20] MEDS: predniSONE 20 MG TABLET PO SCH (09:23)
[2021-08-20] MEDS: POLYETHYLENE GLYCOL 3350 17 GM PACKET PO SCH (09:23)
[2021-08-20] MEDS: LEVOFLOXACIN 500 MG TABLET PO SCH (09:23)
--- NOTE | 2021-08-20 09:33 | XRay Report ---
INDICATION: f/u s/p Diuresis TECHNIQUE: AP portable semiupright chest x-ray COMPARISON: Previous chest x-rays dated 08/17/2021, 08/15/2021 FINDINGS: Lungs:History of garcía lobar emphysema. Bilateral, predominantly bibasilar infiltrates consistent with pneumonia or pulmonary edema. Appearance is essentially unchanged Heart, vascular:Persisting cardiomegaly. There continue to be septal lines consistent with interstitial pulmonary edema. Overall appearance is, however, improved Mediastinum, yogesh:No mediastinal widening. No hilar mass Pleura:Small bilateral pleural effusions, right slightly larger than left. No definite interval change Skeletal:Negative. IMPRESSION: 1. García lobar emphysema 2. Cardiomegaly and findings consistent with congestive heart failure. There is interstitial edema and small bilateral effusions. Mild interval improvement since 08/17/2021 Interpreted and Authenticated by: Yomi Mclain 08/20/21
[2021-08-20] MEDS ORDERED: NICOTINE 14 MG PATCH TOPICAL SCH (10:00)
[2021-08-20] MEDS: BUTALB/ACETAMINOPHEN/CAFFEINE 1 TABLET PO PRN ×2 (10:28→19:19)
--- NOTE | 2021-08-20 11:02 | Discharge Summary ---
Discharge Provider Provider IMPORTANT FOLLOW-UP INFORMATION FOR PCP: Patient information: Note initiated : 08/20/21 at 10:58 am Service Date, if different from initiated Date: [] Patient: Yudi Dotson a 89 y/o F admitted on 08/17/21 for sob. Chief Complaint: [] Date of admission: 08/17/21 01:52 Discharge date: 08/21/21 Primary care physician: Other Provider Consults: 08/15/21 Consult to Physician [CONS] Stat Comment: Consulting Provider: Ernst Duong Reason For Exam: Physician to Consult COURSE Hospital Course Hospital course: Interval history: History of present illness: Ms. Dotson is a 89 year old F history of COPD, recently admitted to our facility 2 months ago for pneumonia, presenting with 2 months history of progressive shortness of breath. Patient claims that she has been feeling shortness of breath getting progressively worse since last admissions. She is also committing of productive cough with clear sputum. She is coming of subjective fever and chills. She is coming of general body weakness. She is complaining of chest pain whenever she coughs. She denies respiratory wheezings. She is also complaining of nausea but denies any vomiting. She stated that she does not use oxygen at home. Vital signs significant for tachypnea with rate of breathing in the mid 20s. Labs significant for lack of leukocytosis with WBC 8.2. Lactic acid pending. Procalcitonin pending. COVID screening pending. Chest x-ray showing infiltrate right lung base suggestive of bacterial pneumonia. 08/16: Patient is on 2 L/min of oxygen. Afebrile overnight. Cultures no growth to date. COVID results pending. Patient is complaining of shortness of breath with productive cough with sputum productions. She is complaining of chest pain while coughing. She is complain of headaches as well as back pain. She is coming of general weakness. Continue IV fluid. Continue antibiotics oral Levaquin. Continue supplemental oxygen. 08/17: Rapid response was called last night for increasing degree of shortness of breath as well as anxiety. She was placed on oxygen mask with up to 5 L/min of oxygen and also element was given. She was being transferred to PCU and inpatient status. This morning she is continuing to complaining of worsening degree of shortness of breath as well as anxiety. She also is complaining of cough and respiratory wheezings. She denies any fever or chills. Will change DuoNeb from as needed to scheduled. We will add prednisone in addition to levofloxacin for treatment of bacterial pneumonia plus or minus COPD exacerbations. Continue supplemental oxygen therapy titrate to keep SPO2 above or equal to 88% given COPD. Ativan as needed for anxiety. 08/18 Patient requiring less oxygen today. Overweight CODE STATUS as she was previously a DO NOT RESUSCITATE on last admission and she confirms she is a DNR. Occasional cough and some shortness of breath. 08/19 Per nurse patient has good saturations at rest but with movement desats. Currently on 2 L with good sats. Echo pending and BMP pending. we will give Lasix today. Patient has cough and shortness of breath. Also complains of headaches. 08/20 Patient now on 1 L nasal cannula. Chest x-ray follow-up improving. Awaiting echo results. Hold Lasix today. Check hemoglobin for worsening anemia. Hypokalemia on today's labs. Echo showing diastolic heart failure grade 2 and systolic heart failure with a EF of 40% mild right ventricular function reduction 08/21 No change. Patient stable for discharge. Patient extremely high risk for readmission given age and significant comorbidities A: *Acute on diastolic(II)/chronic systolic(40%) CHF & mild RV failure: *?Pneumonia (h/o pseudomonas pna): *COPD(not on home O2)/Pulmonary Fibrosis: *Acute hypoxic respiratory failure: 2/2 above *SIRS: tachycardia improving *Probable inferior right pulmonary vein thrombus: started on eliquis early June *Malnutrition, severe, protein: Muscle and subcutaneous fat loss/diminished fu nctional status *FTT: *Dementia likely: *CKD III: *Macrocytic Anemia, acute on chronic: b12/folate wnl, guaiac neg *Chronic pain, abd/other: *Tobacco abuse: *Significant peripheral arterial disease/CAROLA: *Recently on hospice: Withdrew because she did not want to go into a facility P: -O2 wean as able, may need home o2 with copd/pulm fibrosis/chf DNR Discharge diagnosis: Acute on chronic diastolic systolic heart failure questionable pneumonia CO Secondary discharge diagnosis: COPD hypoxic respite failure SIRS malnutrition failure to thrive dementia chronic disease anemia chronic pain CO tobacco abuse peripheral vascular disease Time Spent with Patient Time attestation: Total time spent providing and/or coordinating discharge services: Time spent: Greater than 30 minutes EXAM Constitutional Vitals: Temp Pulse Resp BP Pulse Ox 97.9 F 93 H 18 137/65 92 08/20/21 07:48 08/20/21 07:48 08/20/21 07:48 08/20/21 07:48 08/20/21 09:55 Discharge Data Data Completed and Pending Labs on day of discharge: Labs from last 24 hours 08/20/21 08/20/21 06:24 06:24 Hgb Pending Hct Pending Sodium 142 Potassium 3.2 L Chloride 106 Carbon Dioxide 25 Anion Gap 11.0 BUN 24 H Creatinine 0.7 GFR Calculation 77 Glucose 93 Uric Acid 5.7 Calcium 9.3 Phosphorus 3.2 Magnesium 2.1 Total Bilirubin 0.2 Direct Bilirubin < 0.2 GGT 43 H AST 19 ALT 16 Alkaline Phosphatase 51 Lactate Dehydrogenase 253 H NT-Pro-B Natriuret Pep 77145.0 H Total Protein 5.9 Albumin 3.6 Globulin 2.3 Albumin/Globulin Ratio 1.6 Triglycerides 88 Preliminary micro results at discharge 08/15/21 22:41 Blood Culture - Preliminary Blood 08/15/21 22:35 Blood Culture - Preliminary Blood Discharge Plan Patient/Caregiver Discharge Instructions Activity: increase activity as tolerated Diet: Regular Diet Instructions: Metoprolol (By mouth), Lisinopril (By mouth), Heart Failure (DC), COPD (Chronic Obstructive Pulmonary Disease) (DC), Pneumonia (DC) Activity Restrictions/Additional Instructions: Increase activity as tolerated. May resume regular diet as tolerated. Wear your oxygen at all times at Call your physician for sustained fever greater than 100.5, worsening shortness of breath, or any questions/concerns. This discharge packet is provided to you to help keep you informed about your care. We want to ensure you get everything you need when you go home. You will also be receiving a call from us in a few days to follow up with you and see how you are doing since your discharge. This gives us a chance to listen to any concerns you maybe experiencing since you were discharged or any additional needs you may have, as well as providing us feedback on your care experience. We strive to always provide excellent care and thank you for your feedback and for choosing [facility]. Prescriptions: New metoprolol succinate 25 mg Tablet Extended Release 24 Hr 12.5 mg PO DAILY Qty: 30 0RF lisinopril 2.5 mg Tablet 2.5 mg PO DAILY Qty: 30 0RF Continued (DME) diaper,brief,adult,disposable [[employer] Underwear [employer]] [facility] [place] See Dose Instructions .ROUTE .MEDSUPPLY Qty: 120 0RF Dose Instruction: As directed Rx Instructions: As directed (DME) toilet seat riser Qty: 1 0RF Dose Instruction: As directed Rx Instructions: As directed Handicap Placard See Rx Instructions .ROUTE .COMPLEX Qty: 2 0RF Dose Instruction: As directed ; Rx Instructions: As directed ; polyethylene glycol 3350 17 gram powder in packet 17 g PO QDAY Qty: 30 5RF Rx Instructions: mix into 4-8 oz. of any hot/cold/room temp. beverage; use immediately (DME) 3x3 foam dressing Qty: 10 3RF Rx Instructions: As directed (DME) Commode Qty: 1 0RF Rx Instructions: As directed albuterol sulfate 2.5 mg /3 mL (0.083 %) solution for nebulization 2.5 mg INHALATION Q4H PRN (Reason: shortness of breath) Qty: 540 2RF fluticasone propionate 50 mcg/actuation spray,suspension 2 spray INTRANASAL BID Qty: 16 2RF Label Comments: For 30 days Breo Ellipta 200-25 mcg/dose blister with device 1 inh INHALATION Q24H Qty: 1 5RF Rx Instructions: after inhalation, rinse mouth with water and spit out; do not swallow albuterol sulfate [Ventolin HFA] 90 mcg/actuation HFA aerosol inhaler See Rx Instructions .ROUTE .COMPLEX Qty: 18 5RF Dose Instruction: USE WITH 2 PUFFS INHALATION EVERY 6 HOURS * ADMINISTER WITH SPACER Rx Instructions: USE WITH 2 PUFFS INHALATION EVERY 6 HOURS * ADMINISTER WITH SPACER simethicone [Gas Relief Extra Strength] 125 mg capsule 125 mg PO .COMPLEX PRN (Reason: SOB) Rx Instructions: 125 mg PO PRN; (DME) home oxygen Qty: 1 0RF Dose Instruction: As directed Rx Instructions: As directed magnesium citrate 125 mg capsule 125 mg PO QHS Qty: 7 0RF Eliquis 5 mg tablet 5 mg PO BID 90 Days Qty: 180 0RF hydrocodone-acetaminophen 10-325 mg tablet 1 tab PO TID PRN (Reason: Pain) Rx Instructions: 28 day script Max 6/Day Discontinued ibuprofen 400 mg PO PRN PRN (Reason: Pain) Follow Up Plan Follow up with: Alberto Murillo DO [Physician] - 08/27/21 10:00 am (Please check in at 9:45 am for this appointment.) Patient Disposition: Home Health Service Prognosis: Fair Rehab Potential: Fair Overall status at discharge: patient is progressing back to baseline Discharge Orders: Discharge Order (Routine); Ordered 08/21/21 Ordered By: Bhaskar Chen [facility] VTE Deep Vein Thrombosis/Pulmonary Embolism Present on Admission: No
[2021-08-20] MEDS: METOPROLOL SUCCINATE 25 MG TAB.XL.24H PO SCH (12:41)
[2021-08-20] MEDS: LISINOPRIL 2.5 MG TABLET PO SCH (12:41)
[2021-08-20 16:48] LABS: Hematocrit 28.5 % (34.1-44.9); Hemoglobin 8.6 g/dL (11.2-15.7)
[2021-08-20] MEDS: MELATONIN 3 MG TABLET PO SCH (21:10)
[2021-08-20] MEDS: SENNOSIDES 1 TABLET PO SCH (21:10)
[2021-08-20] MEDS: traZODone HCL 50 MG TABLET PO PRN (21:10)
[2021-08-20] MEDS ORDERED: BISACODYL 10 MG SUPP.RECT PR PRN (21:45)
[2021-08-20] MEDS ORDERED: BISACODYL 10 MG SUPP.RECT PR ONE (22:18)
[2021-08-21] MEDS: BUTALB/ACETAMINOPHEN/CAFFEINE 1 TABLET PO PRN (00:37)
[2021-08-21] MEDS: 0.9 % SODIUM CHLORIDE 10 ML SYRINGE IV SCH (06:06)
[2021-08-21] MEDS: IPRATROPIUM/ALBUTEROL 3 ML AMPUL.NEB NEB SCH (06:35)
[2021-08-21] MEDS: NICOTINE 14 MG PATCH TOPICAL SCH (08:20)
[2021-08-21] MEDS: NICOTINE 21 MG PATCH TOPICAL SCH (08:20)
[2021-08-21] MEDS: POLYETHYLENE GLYCOL 3350 17 GM PACKET PO SCH (08:20)
[2021-08-21] MEDS: DOCUSATE SODIUM 100 MG CAPSULE PO SCH (08:21)
[2021-08-21] MEDS: APIXABAN 5 MG TABLET PO SCH (08:21)
[2021-08-21] MEDS: METOPROLOL SUCCINATE 25 MG TAB.XL.24H PO SCH (08:22)
[2021-08-21] MEDS: LISINOPRIL 2.5 MG TABLET PO SCH (08:22)
[2021-08-21] MEDS: FLUTICASONE PROPIONATE SPRAY.NAS NS SCH (08:23)
[2021-08-21] MEDS: predniSONE 20 MG TABLET PO SCH (08:23)
[2021-08-21] MEDS: [UNRECOGNIZED DRUG - OTHER] INH SCH (08:24)
[2021-08-21] MEDS: HYDROcodone/APAP 10/325MG TABLET PO PRN (08:36)
--- NOTE | 2021-08-23 19:09 | EKG ---
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
--- NOTE | 2021-08-24 10:40 | EKG ---
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 Measurements Intervals [place] Rate: 140 P: 94 MO: 124 QRS: 69 QRSD: 70 T: 7 QT: 319 QTc: 487 Interpretive Statements Atrial tachycardia Multiple premature complexes, vent & supraven Low voltage, extremity leads Borderline T abnormalities, inferior leads Electronically Signed On 08-24-2021 10:40:26 PDT by Yomi Wiggins M.D. /store/[email or web address]/[id number]
== END 2021-08-21 10:40 | disposition home health service (06) | DRG 291 ==
LOC: MEDSUR 18:44 → ED 18:44 → MEDSUR 21:15
PROVIDERS: ADMIT Internal Medicine; ATTEND Internal Medicine

== ENCOUNTER 2021-09-19 13:48 | Inpatient (IN) ==
[2021-09-19 14:10] LABS: POC Calcium, Ionized 1.11 (1.16-1.32); POC Creatinine 0.4 (0.6-1.2); POC Potassium 2.7 (3.3-5.1)
--- NOTE | 2021-09-19 14:12 | Emergency Department Note ---
Weakness HPI General Chief complaint: Weakness Stated complaint: weakness Time Seen by Provider: 09/19/21 14:11 Source: patient Mode of arrival: EMS Limitations: physical limitation History of Present Illness HPI Narrative: Narrative: Patient is an 89-year-old female who is brought into the emergency department today by EMS. Patient's daughter had called EMS and apparently patient has had increased weakness over the last month. The daughter and the patient indicate that when she was admitted here at [facility] a month ago and was receiving intravenous medication and fluids that patient's right arm went weak and she has not been able to move her right arm since that time. Right leg has also been weak, but she is still able to move her leg some. Patient reports that she has difficulty ambulating due to the weakness. She has not been eating or drinking much. She lives at home and has caregivers who are coming into the home until last Tuesday. The daughter reports that the home health agency wanted her to consider placement into long-term care, but the patient did not choose a facility. The daughter reports that the home care agency is no longer coming into the home because she did not choose a facility to move into. Last known normal for the right arm and leg weakness was a month ago while she was admitted here at the hospital. Patient denies having any chest pain today. She has had infrequent nonproductive cough. She does continue to smoke and has history of COPD. She has not had any fevers or chills. Patient has felt generalized weakness over the last several days where she feels tired. She feels that this is related to not eating or drinking much. Patient denies any abdominal pain, nausea, vomiting, melena, or hematochezia. Patient denies having any headaches. She has not had any vision changes. Related Data Home Medications Medication Instructions Recorded Confirmed simethicone 125 mg capsule (Gas 125 mg PO .COMPLEX PRN SOB 09/12/19 08/15/21 Relief Extra Strength) hydrocodone 10 mg-acetaminophen 1 tab PO TID PRN Pain 08/15/21 08/15/21 325 mg tablet Previous Rx's Medication Instructions Recorded diaper,brief,adult,disposable #120 ea 07/08/15 (Depend Underwear For Women Large) toilet seat riser #1 ea 04/20/17 home oxygen #1 ea 08/24/17 Handicap Placard See Rx Instructions .Route 12/21/17 .COMPLEX ##2 polyethylene glycol 3350 17 gram 17 g PO QDAY #30 ea 10/23/19 oral powder packet 3x3 foam dressing #10 ea 11/28/19 Commode #1 ea 12/20/19 magnesium citrate 125 mg capsule 125 mg PO QHS #7 caps 07/11/20 albuterol sulfate 2.5 mg/3 mL 2.5 mg (3 mL) inhalation Q4H PRN 08/19/20 (0.083 %) solution for nebulization shortness of breath #540 mL fluticasone furoate 200 1 inh inhalation Q24H #1 device 09/01/20 mcg-vilanterol 25 mcg/dose inhalation powder (Breo Ellipta) fluticasone propionate 50 2 spray intranasal BID #16 grams 09/01/20 mcg/actuation nasal spray,suspension Ventolin HFA 90 mcg/actuation See Rx Instructions .Route 09/29/20 aerosol inhaler (albuterol sulfate) .COMPLEX #18 grams lisinopril 2.5 mg tablet 2.5 mg PO DAILY #30 tabs 08/20/21 metoprolol succinate 25 mg 12.5 mg PO DAILY #30 tabs 08/20/21 tablet,extended release 24 hr Allergies Allergy/AdvReac Type Severity Reaction Status Date / Time Sulfa (Sulfonamide Allergy Unknown Unknown Verified 07/05/21 14:22 Antibiotics) Review of Systems ROS ROS Narrative: Narrative: All systems ED: reviewed and negative except as stated. [facility] Narrative Patient History Narrative: Narrative: Medical/Surgical/Family History All Active Problems (Updated 09/19/21 @ 19:46 by DANILO Gaviria) History of cerebrovascular accident (Acute) Acute UTI (urinary tract infection) (Acute) Hypokalemia (Acute) Failure to thrive (Acute) Generalized weakness (Acute) COPD exacerbation (Acute) Anemia, macrocytic (Acute) Chronic anticoagulation (Acute) Fungal infection of skin (Acute) Constipation (Acute) Pressure ulcer of back (Acute) Pneumonia (Acute) Colitis (Acute) Lung mass (Acute) Chronic pain (Acute) Low back pain (Acute) Pneumonia (Acute) Excessive cerumen in left ear canal (Acute) Cellulitis of earlobe (Acute) Medicare annual wellness visit, initial (Acute) Migraines (Acute) Joint pain (Acute) Muscle pain (Acute) History of colonoscopy (Acute ~2013) Chronic abdominal pain (Acute) Sinusitis, acute (Acute) Sinus pressure (Acute) Urinary tract infection (Acute) 23-polyvalent pneumococcal polysaccharide vaccine declined (Chronic) Acute exacerbation of chronic obstructive airways disease (Acute) Lumbar radiculopathy (Chronic) Encounter for medication refill (Acute) Geriatric health maintenance (Acute) Wrist pain (Chronic 05/22/14) Weight loss (Chronic 05/22/14) Thyroid mass (Chronic 05/22/14) Osteoporosis (Chronic 03/22/14) Meniere's disease (Chronic) Melanoma of skin (Chronic) Irritable bowel syndrome (Chronic) Hyperlipidemia (Chronic) External hemorrhoids (Chronic) Gastroesophageal reflux (Chronic) Uterine fibroid (Chronic) Degeneration of lumbosacral intervertebral disc (Chronic) Constipation (Chronic) Chronic back pain (Chronic) Chronic obstructive pulmonary disease (Chronic) Medical History 23-polyvalent pneumococcal polysaccharide vaccine declined Acute exacerbation of chronic obstructive airways disease Cellulitis of earlobe Chronic back pain Back Chronic obstructive pulmonary disease Constipation Degeneration of lumbosacral intervertebral disc Encounter for medication refill Excessive cerumen in left ear canal External hemorrhoids Gastritis Gastroesophageal reflux Hyperlipidemia Irritable bowel syndrome Joint pain Lumbar radiculopathy Medicare annual wellness visit, initial Melanoma of skin Removed 2002 Meniere's disease Migraines Muscle pain Osteoporosis (03/22/14) Thyroid mass (05/22/14) Uterine fibroid Weight loss (05/22/14) Wrist pain (05/22/14) Surgical History History of colonoscopy (~2013) History of hemorrhoidectomy History of malignant neoplasm of skin Family History Unknown Alcohol abuse Family history of chronic pain Cardiac disease Essential hypertension Osteoarthritis Social History Smoking Status: Current every day smoker Alcohol Intake Frequency: a few times a month Substance Use: does not use Exam Narrative Narrative: Narrative: General Limitations: physical limitation General appearance: Present alert, in no apparent distress and thin Head Head: Present atraumatic, normocephalic and normal inspection Eye Eye: Present normal appearance, PERRL and visual johnson intact; Absent scleral icterus, conjunctival injection or nystagmus ENT ENT: Present mucous membranes dry Neck Neck: Present normal inspection and full ROM; Absent lymphadenopathy Chest Chest: Present symmetric chest wall rise Respiratory Respiratory: Present normal lung sounds bilaterally; Absent respiratory distress, rales/crackles or accessory muscle use Cardiovascular Cardiovascular: Present regular rate and normal rhythm Adbominal Abdominal: Present soft; Absent distention, tenderness, rebound, rigidity, trauma, ascites or mass Extremities Extremities: Present normal inspection and normal capillary refill; Absent cyanosis Neurological Neurological: Present alert and oriented X3 Expanded Neurological Patient oriented to: Present person, place and time CRANIAL NERVES: EOM function (II, III, IV, ): Normal, facial sensation (V): Normal, facial palsy (VII): Normal, gag reflex (IX): Normal, spinal accessory function (XI): Normal and tongue deviation (XII): Normal CEREBELLAR FUNCTION: finger to nose: Abnormal Right and heel to maloney: Abnormal Right Motor strength - LUE: 4/5 Motor strength - RUE: 0/5 Motor strength - LLE: 4/5 Motor strength - RLE: 1/5 SENSORY EXAM UPPER EXTREMITY: Normal: light touch SENSORY EXAM LOWER EXTREMITY: Normal: light touch Coma Scale Eye Opening: Spontaneous Coma Scale Motor Response: Obeys Commands Coma Scale Verbal Response: Oriented Coma Scale Total: 15 Psychiatric Psychiatric: Present normal affect and normal mood Skin Skin: Present warm (WNL), dry and normal color Course Vital Signs Vital signs: Vital Signs Temperature 98.9 F 09/19/21 13:58 Pulse Rate 63 09/19/21 13:58 Respiratory Rate 16 09/19/21 13:58 Blood Pressure 151/81 09/19/21 13:58 Pulse Oximetry (%) 91 09/19/21 13:58 Oxygen Delivery Method 09/19/21 13:58 Temperature 98.9 F 09/19/21 13:58 Pulse Rate 66 09/19/21 19:30 Respiratory Rate 29 H 09/19/21 19:30 Blood Pressure 149/91 09/19/21 19:30 Pulse Oximetry (%) 97 09/19/21 19:30 Oxygen Delivery Method 09/19/21 13:58 [facility] Narrative Medical decision making narrative: Narrative: Patient is an 89-year-old female who was brought in by EMS today with increased weakness over the last month, and over the last few days this has significantly worsened according to the daughter who arrived to the emergency department. Patient reports right arm and right leg weakness occurring approximately a month ago. Proceed with noncontrast head CT scan that shows old infarct that would correlate with patient's right sided deficits. No acute infarct, patient does not have any new neurological deficit according to the family or patient today. Chest x-ray obtained today due to patient's cough and smoking history. There is no acute findings on the chest x-ray. Patient has been having difficulty ambulating at home due to weakness and not eating or drinking much. She lives at home alone and has a caregiver who was coming into the home until recently had discharged her. She had work-up today that shows hypokalemia with potassium of 2.7. She was given 20 mEq IV and 40 mEq by mouth of potassium replacement. Patient received 1 liter of NS today. Patient's hemoglobin 11.0 today. White count is 11.6. Urinalysis does show signs of urinary tract infection. Patient will be given 1 g Rocephin in the emergency department today. Urine was sent for culture. I was able to speak with hospitalist today about admission with this patient. Dr. Swan agrees to accept patient for hospital admission at [facility]. Lab Data Lab results reviewed: Yes I reviewed the patient's lab results. Result diagrams: 09/19/21 14:04 09/19/21 14:04 Labs: Lab Results 09/19/21 09/19/21 09/19/21 Range/Units 14:03 14:04 14:04 WBC 11.6 H (4.5-11.0) K/mcL RBC 4.05 (3.59-5.38) M/mcL Hgb 11.0 L (11.2-15.7) g/dL Hct 37.1 (34.1-44.9) % POC Hct 36.0 (36-48) MCV 91.6 (80.0-100.0) fL MCH 27.2 (26.0-34.0) pg MCHC 29.6 L (31.0-36.0) g/dL RDW 17.2 H (11.5-14.5) % Plt Count 221 (140-440) K/mcL MPV 10.8 H (7.4-10.4) fL Immature Gran % (Auto) 0.3 (0.0-0.5) % Neut % (Auto) 72.1 (38.0-78.0) % Lymph % (Auto) 20.5 (15.5-49.0) % [place] % (Auto) 6.6 (1.0-12.0) % Eos % (Auto) 0.2 (0.0-7.0) % Baso % (Auto) 0.3 (0.0-2.0) % Lymph # (Auto) 2.38 (1.50-4.80) K/mcL [place] # (Auto) 0.77 (0.10-0.90) K/mcL Eos # (Auto) 0.02 (0.00-0.70) K/mcL Baso # (Auto) 0.03 (0.00-0.30) K/mcL Immature Gran # 0.04 (0.00-0.05) K/mcl Absolute Neutrophils 8.39 H (1.80-8.00) K/mcL POC Sodium 143 (133-145) Sodium 140 (133-145) mmol/L POC Potassium 2.7 L* (3.3-5.1) Potassium 2.7 L* (3.3-5.1) mmol/L POC Chloride 104 (96-108) Chloride 101 (96-108) mmol/L Carbon Dioxide 25 (22-30) mmol/L POC Total CO2 28.0 (22-30) Anion Gap 14.0 (8.0-16.0) POC BUN 27 H (6-20) BUN 19 (8-23) mg/dL Creatinine 0.5 L (0.6-1.1) mg/dL POC Creatinine 0.4 L (0.6-1.2) GFR Calculation 86 Glucose 106 H (70-105) mg/dL POC Glucose 110 H (70-105) Calcium 9.1 (8.6-10.4) mg/dL POC WB Ioniz Calcium 1.11 L (1.16-1.32) Total Bilirubin 0.4 (0.1-1.0) mg/dL AST 24 (<32) U/L ALT 9 (<40) U/L Alkaline Phosphatase 85 (39-117) U/L Total Protein 6.0 (5.9-8.4) gm/dL Albumin 3.2 (3.2-5.2) gm/dL Globulin 2.8 (2.2-3.7) gm/dL Albumin/Globulin Ratio 1.1 (1.0-2.3) Urine Color Urine Appearance (Clear) Urine pH (5.0-9.0) Ur Specific K[place] (1.000-1.035) Urine Protein (Negative) mg/dL Urine Glucose (UA) (Negative) mg/dL Urine Ketones (Negative) mg/dL Urine Occult Blood (Negative) dorie/mcL Urine Nitrate (Negative) Urine Bilirubin (Negative) mg/dL Urine Urobilinogen mg/dL Ur Leukocyte Esterase (Negative) /uL Urine RBC (0-3) /hpf Urine WBC (0-4) /hpf Ur Squamous Epith Cells (0-4) /hpf Ur Transition Epith Cell (0-2) /hpf Urine Bacteria (0) /hpf Hyaline Casts (0-2) /lph Urine Mucus (None) /hpf Ur Culture Indicated? 09/19/21 Range/Units 18:28 WBC (4.5-11.0) K/mcL RBC (3.59-5.38) M/mcL Hgb (11.2-15.7) g/dL Hct (34.1-44.9) % POC Hct (36-48) MCV (80.0-100.0) fL MCH (26.0-34.0) pg MCHC (31.0-36.0) g/dL RDW (11.5-14.5) % Plt Count (140-440) K/mcL MPV (7.4-10.4) fL Immature Gran % (Auto) (0.0-0.5) % Neut % (Auto) (38.0-78.0) % Lymph % (Auto) (15.5-49.0) % [place] % (Auto) (1.0-12.0) % Eos % (Auto) (0.0-7.0) % Baso % (Auto) (0.0-2.0) % Lymph # (Auto) (1.50-4.80) K/mcL [place] # (Auto) (0.10-0.90) K/mcL Eos # (Auto) (0.00-0.70) K/mcL Baso # (Auto) (0.00-0.30) K/mcL Immature Gran # (0.00-0.05) K/mcl Absolute Neutrophils (1.80-8.00) K/mcL POC Sodium (133-145) Sodium (133-145) mmol/L POC Potassium (3.3-5.1) Potassium (3.3-5.1) mmol/L POC Chloride (96-108) Chloride (96-108) mmol/L Carbon Dioxide (22-30) mmol/L POC Total CO2 (22-30) Anion Gap (8.0-16.0) POC BUN (6-20) BUN (8-23) mg/dL Creatinine (0.6-1.1) mg/dL POC Creatinine (0.6-1.2) GFR Calculation Glucose (70-105) mg/dL POC Glucose (70-105) Calcium (8.6-10.4) mg/dL POC WB Ioniz Calcium (1.16-1.32) Total Bilirubin (0.1-1.0) mg/dL AST (<32) U/L ALT (<40) U/L Alkaline Phosphatase (39-117) U/L Total Protein (5.9-8.4) gm/dL Albumin (3.2-5.2) gm/dL Globulin (2.2-3.7) gm/dL Albumin/Globulin Ratio (1.0-2.3) Urine Color Yellow Urine Appearance Slightly cloudy A (Clear) Urine pH 7.0 (5.0-9.0) Ur Specific [place] 1.020 (1.000-1.035) Urine Protein Trace A (Negative) mg/dL Urine Glucose (UA) Negative (Negative) mg/dL Urine Ketones Trace A (Negative) mg/dL Urine Occult Blood Trace-lysed A (Negative) dorie/mcL Urine Nitrate Negative (Negative) Urine Bilirubin Negative (Negative) mg/dL Urine Urobilinogen Normal mg/dL Ur Leukocyte Esterase Large A (Negative) /uL Urine RBC 8 H (0-3) /hpf Urine WBC > 182 H (0-4) /hpf Ur Squamous Epith Cells < 1 (0-4) /hpf Ur Transition Epith Cell 1 (0-2) /hpf Urine Bacteria Few A (0) /hpf Hyaline Casts 1 (0-2) /lph Urine Mucus Mod A (None) /hpf Ur Culture Indicated? yes ED POC Tests ED POC Tests: JOESPH - SARS Antigen Negative Radiology Data Radiology results reviewed: Yes I reviewed the patient's radiology results. Radiology results narrative: Ordering Physician:Terrance Constantino Date of Service:09/19/21 Procedure(s):XR chest 1V CLINICAL INFORMATION: Cough COMPARISON: 08/20/2021 TECHNIQUE: PA and Lateral views FINDINGS: The heart is mildly enlarged but unchanged. Tortuous thoracic aorta again noted. 2.5 mm calcification in the upper right paratracheal region seen as for. Pulmonary vasculature is normal. There is minor bibasilar fibrosis or atelectasis. Focal fibrosis again seen in the left upper lobe. No effusions. IMPRESSION: No acute disease. Interpreted and Authenticated by: Yomi Damico 09/19/21 --- Ordering Physician:Terrance Constantino Date of Service:09/19/21 Procedure(s):CT head/brain wo con CLINICAL INFORMATION: Right-sided weakness COMPARISON: None. TECHNIQUE: 2.5 mm helical slices were obtained in the skull base to vertex. Following reconstruction, axial reformatted images were reviewed at bone and parenchymal windows. The exam was performed using radiation dose optimization techniques including, but not limited to, automated exposure control, adjustment of the mA and/or kV according to patient size and use of iterative reconstruction technique. FINDINGS: The ventricles, sulci, fissures, and cisterns are symmetrically enlarged compatible with mild age-related atrophy. No extra-axial fluid collections are identified. Mild patchy chronic ischemic changes, in the deep cerebral white matter, are expected for age. Small remote cortical-based infarcts in the left frontal lobe near vertex. There is no hemorrhage, mass effect, or edema. Bone windows show no osseous abnormality. IMPRESSION: Mild atrophy and chronic ischemic changes in the deep cerebral white matter-expected for age. Small remote cortical-based infarct in the left frontal lobe near vertex. No acute findings Interpreted and Authenticated by: Yomi Damico 09/19/21 Discharge Plan Patient/Caregiver Discharge Instructions Pt seen by SPUD GRADER/PA only: No Clinical Impression: Generalized weakness, History of cerebrovascular accident, Acute UTI (urinary tract infection), Hypokalemia Patient Disposition: Xfer As Inpt ([facility]) Follow up with: Provider,Other [Primary Care Provider] - Prescriptions: No Action (DME) diaper,brief,adult,disposable [Depend Underwear For Women Lrg] misc See Dose Instructions .ROUTE .MEDSUPPLY Qty: 120 0RF Dose Instruction: As directed Rx Instructions: As directed (DME) toilet seat riser Qty: 1 0RF Dose Instruction: As directed Rx Instructions: As directed Handicap Placard See Rx Instructions .ROUTE .COMPLEX Qty: 2 0RF Dose Instruction: As directed ; Rx Instructions: As directed ; polyethylene glycol 3350 17 gram powder in packet 17 g PO QDAY Qty: 30 5RF Rx Instructions: mix into 4-8 oz. of any hot/cold/room temp. beverage; use immediately (DME) 3x3 foam dressing Qty: 10 3RF Rx Instructions: As directed (DME) Commode Qty: 1 0RF Rx Instructions: As directed albuterol sulfate 2.5 mg /3 mL (0.083 %) solution for nebulization 2.5 mg INHALATION Q4H PRN (Reason: shortness of breath) Qty: 540 2RF fluticasone propionate 50 mcg/actuation spray,suspension 2 spray INTRANASAL BID Qty: 16 2RF Label Comments: For 30 days Breo Ellipta 200-25 mcg/dose blister with device 1 inh INHALATION Q24H Qty: 1 5RF Rx Instructions: after inhalation, rinse mouth with water and spit out; do not swallow albuterol sulfate [Ventolin HFA] 90 mcg/actuation HFA aerosol inhaler See Rx Instructions .ROUTE .COMPLEX Qty: 18 5RF Dose Instruction: USE WITH 2 PUFFS INHALATION EVERY 6 HOURS * ADMINISTER WITH SPACER Rx Instructions: USE WITH 2 PUFFS INHALATION EVERY 6 HOURS * ADMINISTER WITH SPACER simethicone [Gas Relief Extra Strength] 125 mg capsule 125 mg PO .COMPLEX PRN (Reason: SOB) Rx Instructions: 125 mg PO PRN; (DME) home oxygen Qty: 1 0RF Dose Instruction: As directed Rx Instructions: As directed magnesium citrate 125 mg capsule 125 mg PO QHS Qty: 7 0RF hydrocodone-acetaminophen 10-325 mg tablet 1 tab PO TID PRN (Reason: Pain) Rx Instructions: 28 day script Max 6/Day metoprolol succinate 25 mg Tablet Extended Release 24 Hr 12.5 mg PO DAILY Qty: 30 0RF lisinopril 2.5 mg Tablet 2.5 mg PO DAILY Qty: 30 0RF
[2021-09-19] MEDS ORDERED: POTASSIUM CHLORIDE 20 MEQ in DEXTROSE 5% IN WATER 250 ML IV ONE (14:13)
[2021-09-19] MEDS ORDERED: POTASSIUM CHLORIDE 20 MEQ TABLET PO ONE (14:13)
[2021-09-19] MEDS ORDERED: 0.9 % SODIUM CHLORIDE 1,000 ML IV ONE (14:21)
[2021-09-19 14:39] LABS: Basophils # (Auto) 0.03 K/mcL (0.00-0.30); Basophils % (Auto) 0.3 % (0.0-2.0); Eosinophils # (Auto) 0.02 K/mcL (0.00-0.70); Eosinophils % (Auto) 0.2 % (0.0-7.0); Hematocrit 37.1 % (34.1-44.9); Lymphocytes # (Auto) 2.38 K/mcL (1.50-4.80); Lymphocytes % (Auto) 20.5 % (15.5-49.0); Mean Cell Volume 91.6 fL (80.0-100.0); Mean Corpuscular HGB Conc 29.6 g/dL (31.0-36.0); Mean Platelet Volume 10.8 fL (7.4-10.4); Monocytes # (Auto) 0.77 K/mcL (0.10-0.90); Monocytes % (Auto) 6.6 % (1.0-12.0); Neutrophils % (Auto) 72.1 % (38.0-78.0); Platelet Count 221 K/mcL (140-440); RBC 4.05 M/mcL (3.59-5.38); Red Cell Distribution Width 17.2 % (11.5-14.5); WBC 11.6 K/mcL (4.5-11.0)
[2021-09-19 15:16] LABS: ALT/SGPT 9 U/L (<40); AST/SGOT 24 U/L (<32); Albumin 3.2 gm/dL (3.2-5.2); Albumin/Globulin Ratio 1.1 (1.0-2.3); Alkaline Phosphatase 85 U/L (39-117); Bilirubin,Total 0.4 mg/dL (0.1-1.0); Blood Urea Nitrogen 19 mg/dL (8-23); Calcium 9.1 mg/dL (8.6-10.4); Carbon Dioxide 25 mmol/L (22-30); Chloride 101 mmol/L (96-108); Globulin 2.8 gm/dL (2.2-3.7); Glomerular Filtration Rate 86; Glucose 106 mg/dL (70-105)
--- NOTE | 2021-09-19 15:45 | XRay Report ---
CLINICAL INFORMATION: Cough COMPARISON: 08/20/2021 TECHNIQUE: PA and Lateral views FINDINGS: The heart is mildly enlarged but unchanged. Tortuous thoracic aorta again noted. 2.5 mm calcification in the upper right paratracheal region seen as for. Pulmonary vasculature is normal. There is minor bibasilar fibrosis or atelectasis. Focal fibrosis again seen in the left upper lobe. No effusions. IMPRESSION: No acute disease. Interpreted and Authenticated by: Yomi Damico 09/19/21
--- NOTE | 2021-09-19 15:49 | Cat Scan Report ---
CLINICAL INFORMATION: Right-sided weakness COMPARISON: None. TECHNIQUE: 2.5 mm helical slices were obtained in the skull base to vertex. Following reconstruction, axial reformatted images were reviewed at bone and parenchymal windows. The exam was performed using radiation dose optimization techniques including, but not limited to, automated exposure control, adjustment of the mA and/or kV according to patient size and use of iterative reconstruction technique. FINDINGS: The ventricles, sulci, fissures, and cisterns are symmetrically enlarged compatible with mild age-related atrophy. No extra-axial fluid collections are identified. Mild patchy chronic ischemic changes, in the deep cerebral white matter, are expected for age. Small remote cortical-based infarcts in the left frontal lobe near vertex. There is no hemorrhage, mass effect, or edema. Bone windows show no osseous abnormality. IMPRESSION: Mild atrophy and chronic ischemic changes in the deep cerebral white matter-expected for age. Small remote cortical-based infarct in the left frontal lobe near vertex. No acute findings Interpreted and Authenticated by: Yomi Damico 09/19/21
--- NOTE | 2021-09-19 19:15 | Internal Med History&Physical ---
HPI History of Present Illness Patient information: Note initiated : 09/19/21 at 7:11 pm Service Date, if different from initiated Date: [] Patient: Yudi Dotson a 89 y/o F admitted on for weakness. Chief Complaint: [Weakness] Chief complaint: Failure to thrive History of present illness: Ms. Dotson is a 89 year old F with a past medical history significant for COPD presents to the hospital with generalized weakness. The patient is a poor historian and is hard of hearing making communication difficult. There was no family present at the bedside. History was obtained mainly from chart review, nursing and from ER staff. It is reported that the patient has been quite weak since she was discharged from the hospital approximately 1 month ago. Home health had advised the patient and her daughter that she would benefit from long-term care. The patient was reluctant to go to a skilled facility. Home health have not been coming any longer. The patient continued to get weaker and the daughter brought her to the ER for psychosocial concerns. On arrival she was hemodynamically stable and afebrile. The hospitalist service has been asked admit the patient for placement concerns. Review of Systems ROS unobtainable: due to mental status PFSH PFSH All Active Problems (Updated 09/19/21 @ 19:14 by Juan Carlos Swan MD) Failure to thrive (Acute) Generalized weakness (Acute) COPD exacerbation (Acute) Anemia, macrocytic (Acute) Chronic anticoagulation (Acute) Fungal infection of skin (Acute) Constipation (Acute) Pressure ulcer of back (Acute) Pneumonia (Acute) Colitis (Acute) Lung mass (Acute) Chronic pain (Acute) Low back pain (Acute) Pneumonia (Acute) Excessive cerumen in left ear canal (Acute) Cellulitis of earlobe (Acute) Medicare annual wellness visit, initial (Acute) Migraines (Acute) Joint pain (Acute) Muscle pain (Acute) History of colonoscopy (Acute ~2013) Chronic abdominal pain (Acute) Sinusitis, acute (Acute) Sinus pressure (Acute) Urinary tract infection (Acute) 23-polyvalent pneumococcal polysaccharide vaccine declined (Chronic) Acute exacerbation of chronic obstructive airways disease (Acute) Lumbar radiculopathy (Chronic) Encounter for medication refill (Acute) Geriatric health maintenance (Acute) Wrist pain (Chronic 05/22/14) Weight loss (Chronic 05/22/14) Thyroid mass (Chronic 05/22/14) Osteoporosis (Chronic 03/22/14) Meniere's disease (Chronic) Melanoma of skin (Chronic) Irritable bowel syndrome (Chronic) Hyperlipidemia (Chronic) External hemorrhoids (Chronic) Gastroesophageal reflux (Chronic) Uterine fibroid (Chronic) Degeneration of lumbosacral intervertebral disc (Chronic) Constipation (Chronic) Chronic back pain (Chronic) Chronic obstructive pulmonary disease (Chronic) Medical History 23-polyvalent pneumococcal polysaccharide vaccine declined Acute exacerbation of chronic obstructive airways disease Cellulitis of earlobe Chronic back pain Back Chronic obstructive pulmonary disease Constipation Degeneration of lumbosacral intervertebral disc Encounter for medication refill Excessive cerumen in left ear canal External hemorrhoids Gastritis Gastroesophageal reflux Hyperlipidemia Irritable bowel syndrome Joint pain Lumbar radiculopathy Medicare annual wellness visit, initial Melanoma of skin Removed 2002 Meniere's disease Migraines Muscle pain Osteoporosis (03/22/14) Thyroid mass (05/22/14) Uterine fibroid Weight loss (05/22/14) Wrist pain (05/22/14) Surgical History History of colonoscopy (~2013) History of hemorrhoidectomy History of malignant neoplasm of skin Family History Unknown Alcohol abuse Family history of chronic pain Cardiac disease Essential hypertension Osteoarthritis Social History marital status: occupational status: 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 other: 7 Children, 1 diseaced from lymphoma, 4 grandchildren, 3 great granchildren smoking status: Current every day smoker tobacco type: cigarettes per day: 20 quit status: not considering quitting alcohol intake frequency: a few times a month substance use type: does not use MEDS/ALLERGIES Home Medications and Allergies Home Medications Medication Instructions Recorded Confirmed Type diaper,brief,adult,disposable #120 ea 07/08/15 08/15/21 Rx (Depend Underwear For Women Large) toilet seat riser #1 ea 04/20/17 08/15/21 Rx home oxygen #1 ea 08/24/17 08/15/21 Rx Handicap Placard See Rx Instructions .Route 12/21/17 08/15/21 Rx .COMPLEX ##2 simethicone 125 mg capsule (Gas 125 mg PO .COMPLEX PRN SOB 09/12/19 08/15/21 Hi story Relief Extra Strength) polyethylene glycol 3350 17 gram 17 g PO QDAY #30 ea 10/23/19 08/15/21 Rx oral powder packet 3x3 foam dressing #10 ea 11/28/19 08/15/21 Rx Commode #1 ea 12/20/19 08/15/21 Rx magnesium citrate 125 mg capsule 125 mg PO QHS #7 caps 07/11/20 08/15/21 Rx albuterol sulfate 2.5 mg/3 mL 2.5 mg (3 mL) inhalation Q4H PRN 08/19/20 08/15/21 Rx (0.083 %) solution for nebulization shortness of breath #540 mL fluticasone furoate 200 1 inh inhalation Q24H #1 device 09/01/20 08/15/21 Rx mcg-vilanterol 25 mcg/dose inhalation powder (Breo Ellipta) fluticasone propionate 50 2 spray intranasal BID #16 grams 09/01/20 08/15/21 Rx mcg/actuation nasal spray,suspension Ventolin HFA 90 mcg/actuation See Rx Instructions .Route 09/29/20 08/15/21 Rx aerosol inhaler (albuterol sulfate) .COMPLEX #18 grams hydrocodone 10 mg-acetaminophen 1 tab PO TID PRN Pain 08/15/21 08/15/21 History 325 mg tablet lisinopril 2.5 mg tablet 2.5 mg PO DAILY #30 tabs 08/20/21 Rx metoprolol succinate 25 mg 12.5 mg PO DAILY #30 tabs 08/20/21 Rx tablet,extended release 24 hr Allergies Allergy/AdvReac Type Severity Reaction Status Date / Time Sulfa (Sulfonamide Allergy Unknown Unknown Verified 07/05/21 14:22 Antibiotics) EXAM Constitutional Vitals: Temp Pulse Resp BP Pulse Ox O2 Del Method 98.9 F 87 23 H 151/81 97 09/19/21 13:58 09/19/21 16:58 09/19/21 16:58 09/19/21 13:58 09/19/21 16:58 09/19/21 13:58 General appearance: average body habitus Head Head exam: Present atraumatic, normal inspection and normocephalic Eye Eye exam: Present EOMI, normal appearance and PERRL; Absent conjunctival injection ENT ENT exam: Present normal exam; Absent mucous membranes dry Neck Neck exam: Present full ROM; Absent lymphadenopathy Respiratory Respiratory exam: Present normal respiratory exam and CTAB; Absent decreased breath sounds, respiratory distress or wheezes Cardiovascular Cardiovascular exam: Present normal rate and rhythm and RRR; Absent JVD GI/Abdominal GI/Abdominal exam: Present normal bowel sounds and soft; Absent diminished bowel sounds, distended, guarding, mass, rebound or tenderness Neurological Exam Neurological exam: Present alert and oriented X3 Psychiatric Psychiatric exam: Present normal affect and normal mood Skin Skin exam: Present intact and warm; Absent erythema, pallor, petechiae or rash DATA Data Completed and Pending Labs: Labs from last 24 hours 09/19/21 09/19/21 09/19/21 18:28 14:04 14:04 WBC 11.6 H RBC 4.05 Hgb 11.0 L Hct 37.1 POC Hct MCV 91.6 MCH 27.2 MCHC 29.6 L RDW 17.2 H Plt Count 221 MPV 10.8 H Immature Gran % (Auto) 0.3 Neut % (Auto) 72.1 Lymph % (Auto) 20.5 Cloud % (Auto) 6.6 Eos % (Auto) 0.2 Baso % (Auto) 0.3 Lymph # (Auto) 2.38 Cloud # (Auto) 0.77 Eos # (Auto) 0.02 Baso # (Auto) 0.03 Immature Gran # 0.04 Absolute Neutrophils 8.39 H POC Sodium Sodium 140 POC Potassium Potassium 2.7 L* POC Chloride Chloride 101 Carbon Dioxide 25 POC Total CO2 Anion Gap 14.0 POC BUN BUN 19 Creatinine 0.5 L POC Creatinine GFR Calculation 86 Glucose 106 H POC Glucose Calcium 9.1 POC WB Ioniz Calcium Total Bilirubin 0.4 AST 24 ALT 9 Alkaline Phosphatase 85 Total Protein 6.0 Albumin 3.2 Globulin 2.8 Albumin/Globulin Ratio 1.1 Urine Color Pending Urine Appearance Pending Urine pH Pending Ur Specific [place] Pending Urine Protein Pending Urine Glucose (UA) Pending Urine Ketones Pending Urine Occult Blood Pending Urine Nitrate Pending Urine Bilirubin Pending Urine Urobilinogen Pending Ur Leukocyte Esterase Pending 09/19/21 14:03 WBC RBC Hgb Hct POC Hct 36.0 MCV MCH MCHC RDW Plt Count MPV Immature Gran % (Auto) Neut % (Auto) Lymph % (Auto) Cloud % (Auto) Eos % (Auto) Baso % (Auto) Lymph # (Auto) Cloud # (Auto) Eos # (Auto) Baso # (Auto) Immature Gran # Absolute Neutrophils POC Sodium 143 Sodium POC Potassium 2.7 L* Potassium POC Chloride 104 Chloride Carbon Dioxide POC Total CO2 28.0 Anion Gap POC BUN 27 H BUN Creatinine POC Creatinine 0.4 L GFR Calculation Glucose POC Glucose 110 H Calcium POC WB Ioniz Calcium 1.11 L Total Bilirubin AST ALT Alkaline Phosphatase Total Protein Albumin Globulin Albumin/Globulin Ratio Urine Color Urine Appearance Urine pH Ur Specific [place] Urine Protein Urine Glucose (UA) Urine Ketones Urine Occult Blood Urine Nitrate Urine Bilirubin Urine Urobilinogen Ur Leukocyte Esterase A/P Assessment and plan (1) Anemia, macrocytic: Status: Acute (2) Chronic pain: Status: Acute (3) Lumbar radiculopathy: Status: Chronic (4) Generalized weakness: Status: Acute (5) Failure to thrive: Status: Acute Narrative A/P Narrative: The patient is medically stable however requires placement as she is no longer able to look after herself at home and there is no home health services available any longer. The daughter has concerns about her mother's wellbeing and safety. Social work and case management will be consulted to work on disposition. The patient may continue to work with physical therapy and [facility] cupational Therapy. Medication reconciliation is pending Time Spent With Patient Time: Total time spent is greater than 50% in coordination of care (as documented) at patient's floor/unit and/or counseling patient: Total time spent with greater than 50% in coordination of care (as documented) at patient's floor/unit and/or counseling patient:: Greater than 70 minutes
[2021-09-19 19:27] LABS: Appearance,Urine Slightly Cloudy (Clear); Bacteria,Urine FEW /hpf (0); Bilirubin,Urine Negative (Negative); Color,Urine Yellow; Culture Indicated,Urine yes; Glucose,Urine (UA) Negative (Negative); Ketones,Urine Trace mg/dL (Negative); Leukocyte Esterase,Urine Large /uL (Negative); Mucus,Urine MOD /hpf; Nitrate,Urine Negative (Negative); Protein,Urine Trace mg/dL (Negative); Urine Blood Trace-lysed ery/mcL (Negative); Urine Hyaline Cast 1 /lph (0-2); Urine RBC 8 /hpf (0-3); Urine Squamous Epithelial Cell < 1 /hpf (0-4); Urine Transitional Epi Cells 1 /hpf (0-2); Urine WBC > 182 /hpf (0-4); Urobilinogen,Urine Normal
[2021-09-19] MEDS ORDERED: cefTRIAXone 1 GM VIAL IV ONE (19:32)
[2021-09-19] MEDS ORDERED: ONDANSETRON 4 MG/2 ML VIAL IV PRN (21:18)
[2021-09-19] MEDS: LACTATED RINGERS 1,000 ML IV SCH (21:52)
[2021-09-19] MEDS: 0.9 % SODIUM CHLORIDE 10 ML SYRINGE IV SCH (21:53)
[2021-09-19] MEDS: SENNOSIDES 1 TABLET PO SCH (21:53)
[2021-09-19] MEDS: DOCUSATE SODIUM 100 MG CAPSULE PO SCH (21:53)
[2021-09-19] MEDS: ACETAMINOPHEN 325 MG TABLET PO PRN (22:53)
[2021-09-20] MEDS: IPRATROPIUM/ALBUTEROL 3 ML AMPUL.NEB NEB SCH ×4 (02:56→18:03)
[2021-09-20] MEDS: 0.9 % SODIUM CHLORIDE 10 ML SYRINGE IV SCH ×3 (04:54→21:34)
[2021-09-20 06:33] LABS: Basophils # (Auto) 0.02 K/mcL (0.00-0.30); Basophils % (Auto) 0.3 % (0.0-2.0); Eosinophils # (Auto) 0.04 K/mcL (0.00-0.70); Eosinophils % (Auto) 0.5 % (0.0-7.0); Hematocrit 35.6 % (34.1-44.9); Hemoglobin 10.5 g/dL (11.2-15.7); Lymphocytes # (Auto) 1.71 K/mcL (1.50-4.80); Lymphocytes % (Auto) 22.9 % (15.5-49.0); Mean Cell Volume 91.8 fL (80.0-100.0); Mean Corpuscular HGB Conc 29.5 g/dL (31.0-36.0); Mean Platelet Volume 10.3 fL (7.4-10.4); Monocytes # (Auto) 0.54 K/mcL (0.10-0.90); Monocytes % (Auto) 7.2 % (1.0-12.0); Platelet Count 203 K/mcL (140-440); RBC 3.88 M/mcL (3.59-5.38); Red Cell Distribution Width 17.4 % (11.5-14.5); WBC 7.5 K/mcL (4.5-11.0)
[2021-09-20 06:56] LABS: Blood Urea Nitrogen 17 mg/dL (8-23); Calcium 8.6 mg/dL (8.6-10.4); Carbon Dioxide 24 mmol/L (22-30); Chloride 109 mmol/L (96-108); Glomerular Filtration Rate 92; Glucose 87 mg/dL (70-105)
[2021-09-20] MEDS: DOCUSATE SODIUM 100 MG CAPSULE PO SCH ×2 (07:44→21:40)
[2021-09-20] MEDS: ENOXAPARIN 30 MG/0.3 ML SYRINGE SQ SCH (09:37)
--- NOTE | 2021-09-20 10:18 | Internal Med Progress Note ---
SUBJECTIVE Subjective Patient information: Note initiated : 09/20/21 at 10:17 am Service Date, if different from initiated Date: [] Patient: Yudi Dotson 89 y/o F admitted on 09/19/21 for weakness. Chief Complaint: [Failure to thrive] Principal diagnosis: Failure to thrive, generalized weakness Interval history: The patient was resting comfortably in bed. She was able to work with physical therapy this morning. Constitutional Vitals: Vital Signs Temp Pulse Resp BP Pulse Ox O2 Del Method 98.7 F 90 22 135/63 95 09/20/21 08:00 09/20/21 08:09 09/20/21 08:09 09/20/21 08:00 09/20/21 08:00 09/20/21 08:09 Period Temp Pulse Resp BP Sys/Christiansen Pulse Ox O2 Del Method O2 Flow Rate Last 24 Hr 97.6 F-98.9 F 63-105 16-38 133-166/63-107 91-99 Room Air-Room Air Intake and Output 09/19/21 09/20/21 09/20/21 21:59 05:59 13:59 Intake Total 1260 100 Output Total 2 Balance 1260 98 Weight 34.836 kg Intake & Output: Intake & Output 09/19/21 09/20/21 09/20/21 21:59 05:59 13:59 Intake Total 1260 100 Output Total 2 Balance 1260 98 Weight 34.836 kg Intake: IV 1260 Sodium Chloride 0.9% 1,000 ml @ 1000 Wide Open IV BOLUS ONE Rx#: [id number] Potassium Chloride 20 Meq In 260 Dextrose 5% in Water 250 ml @ 130 mls/hr IV ONCE ONE Rx#: [id number] Oral 100 Output: # of times incontinent of urine 2 Head Head exam: Present atraumatic and normal inspection Eye Eye exam: Present normal appearance ENT ENT exam: Present mucous membranes moist, normal exam and normal external ear exam Neck Neck exam: Present normal inspection Respiratory Respiratory exam: Present normal respiratory exam Cardiovascular Cardiovascular exam: Present normal rate and rhythm GI/Abdominal GI/Abdominal exam: Present normal bowel sounds Back Exam Back exam: Present normal inspection Neurological Exam Neurological exam: Present alert and oriented X3 Skin Skin exam: Present intact and warm OBJ DATA Labs CBC & Chem 7: 09/20/21 05:36 09/20/21 05:36 Labs: Abnormal Lab Results 09/20/21 09/20/21 09/19/21 05:36 05:36 18:28 WBC Hgb 10.5 L MCHC 29.5 L RDW 17.4 H MPV Absolute Neutrophils POC Potassium Potassium Chloride 109 H POC BUN Creatinine 0.4 L POC Creatinine Glucose POC Glucose POC WB Ioniz Calcium Urine Appearance Slightly cloudy A Urine Protein Trace A Urine Ketones Trace A Urine Occult Blood Trace-lysed A Ur Leukocyte Esterase Large A Urine RBC 8 H Urine WBC > 182 H Urine Bacteria Few A Urine Mucus Mod A 09/19/21 09/19/21 09/19/21 14:04 14:04 14:03 WBC 11.6 H Hgb 11.0 L MCHC 29.6 L RDW 17.2 H MPV 10.8 H Absolute Neutrophils 8.39 H POC Potassium 2.7 L* Potassium 2.7 L* Chloride POC BUN 27 H Creatinine 0.5 L POC Creatinine 0.4 L Glucose 106 H POC Glucose 110 H POC WB Ioniz Calcium 1.11 L Urine Appearance Urine Protein Urine Ketones Urine Occult Blood Ur Leukocyte Esterase Urine RBC Urine WBC Urine Bacteria Urine Mucus Meds: Medications Acetaminophen (Acetaminophen 325 Mg Tablet) 650 mg PO Q6HP PRN; Protocol PRN Reason: Per Pain Protocol/Fever > 101 Last Admin: 09/19/21 22:53 Dose: 650 mg Albuterol/Ipratropium (Ipratropium/Albuterol 3 Ml Ampul.Neb) 3 ml NEB Q6HRT [facility] Last Admin: 09/20/21 08:07 Dose: 3 ml Docusate Sodium (Docusate Sodium 100 Mg Capsule) 100 mg PO BID [facility] Last Admin: 09/20/21 07:44 Dose: Not Given Enoxaparin Sodium (Enoxaparin 30 Mg/0.3 Ml Syringe) 30 mg SQ DAILY [facility] Last Admin: 09/20/21 09:37 Dose: 30 mg Lactated Ringer's (Lactated Ringers) 1,000 mls @ 75 mls/hr IV .[id number] [facility] Last Admin: 09/19/21 21:52 Dose: 75 mls/hr Ondansetron HCl (Ondansetron 4 Mg/2 Ml Vial) 4 mg IV Q6HP PRN PRN Reason: Nausea And Vomiting Senna (Sennosides 1 Tablet) 2 tab PO HS [facility] Last Admin: 09/19/21 21:53 Dose: Not Given Sodium Chloride (0.9 % Sodium Chloride 10 Ml Syringe) 10 ml IV Q8 [facility] Last Admin: 09/20/21 04:54 Dose: Not Given A/P Assessment and plan (1) Anemia, macrocytic: Status: Acute (2) Chronic pain: Status: Acute (3) Lumbar radiculopathy: Status: Chronic (4) Generalized weakness: Status: Acute (5) Failure to thrive: Status: Acute Narrative A/P Narrative: The patient is medically stable however requires placement as she is no longer able to look after herself at home and there is no home health services available any longer. The daughter has concerns about her mother's wellbeing and safety. Social work and case management will be consulted to work on d isposition. The patient may continue to work with physical therapy and Occupational Therapy. Medication reconciliation is pending 09/20: The patient will work with PT/OT. We will discuss disposition tomorrow morning during rounds. She will likely be inpatient for 3 midnights. Time Spent With Patient Time: Total time spent is greater than 50% in coordination of care (as documented) at patient's floor/unit and/or counseling patient: Total time spent with greater than 50% in coordination of care (as documented) at patient's floor/unit and/or counseling patient:: 25 - 35 minutes QUALITY Stroke Onset of Symptoms Date: 08/19/21 Symptom Onset Unknown: No VTE Deep Vein Thrombosis/Pulmonary Embolism Present on Admission: No
[2021-09-20] MEDS: LACTATED RINGERS 1,000 ML IV SCH ×2 (10:35→21:41)
[2021-09-20] MEDS: NICOTINE 21 MG PATCH TOPICAL SCH (13:49)
[2021-09-20] MEDS: ACETAMINOPHEN 325 MG TABLET PO PRN (17:40)
[2021-09-20] MEDS: SENNOSIDES 1 TABLET PO SCH (21:40)
[2021-09-21] MEDS: LACTATED RINGERS 1,000 ML IV SCH ×4 (01:18→23:02)
[2021-09-21] MEDS: IPRATROPIUM/ALBUTEROL 3 ML AMPUL.NEB NEB SCH ×4 (01:19→19:35)
[2021-09-21] MEDS: HYDROcodone/APAP 10/325MG TABLET PO PRN ×2 (06:22→20:12)
[2021-09-21] MEDS: 0.9 % SODIUM CHLORIDE 10 ML SYRINGE IV SCH ×3 (06:23→20:05)
--- NOTE | 2021-09-21 08:10 | EKG ---
[facility] Test Date: 2021-09-19 Pat Name: Yudi Dotson Department: ED Room: Gender: Female Credit Administration Specialist: : [id number] Requested By: Darren Nation Order Number: [id number] Reading MD: Yomi Wiggins M.D. Measurements Intervals [place] Rate: 87 P: 73 OK: 113 QRS: -44 QRSD: 83 T: -64 QT: 399 QTc: 480 Interpretive Statements Sinus rhythm Ventricular bigeminy Borderline short [place] interval Left axis deviation Borderline low voltage, extremity leads Borderline repolarization abnormality Electronically Signed On 09-21-2021 8:10:21 PDT by Yomi Wiggins M.D. /[facility]/[id number]
[2021-09-21] MEDS: LISINOPRIL 2.5 MG TABLET PO SCH (08:53)
[2021-09-21] MEDS: DOCUSATE SODIUM 100 MG CAPSULE PO SCH ×2 (08:53→20:05)
[2021-09-21] MEDS: METOPROLOL SUCCINATE 25 MG TAB.XL.24H PO SCH (08:53)
[2021-09-21] MEDS: NICOTINE 21 MG PATCH TOPICAL SCH (08:55)
[2021-09-21] MEDS: ENOXAPARIN 30 MG/0.3 ML SYRINGE SQ SCH (08:56)
--- NOTE | 2021-09-21 10:43 | Internal Med Progress Note ---
SUBJECTIVE Subjective Patient information: Note initiated : 09/21/21 at 10:43 am Service Date, if different from initiated Date: [] Patient: Yudi Dotson 89 y/o F admitted on 09/19/21 for weakness. Chief Complaint: [] Principal diagnosis: Failure to thrive, generalized weakness Interval history: The patient is hard of hearing. She has no active complaints or concerns except for constipation per nursing. Constitutional Vitals: Vital Signs Temp Pulse Resp BP Pulse Ox O2 Del Method O2 Flow Rate 99.7 F H 72 18 138/83 95 0 09/21/21 07:17 09/21/21 09:18 09/21/21 09:18 09/21/21 07:17 09/21/21 09:18 09/21/21 09:18 09/20/21 18:50 Period Temp Pulse Resp BP Sys/Christiansen Pulse Ox O2 Del Method O2 Flow Rate Last 24 Hr 97.6 F-99.7 F 61-100 16-20 124-157/67-83 93-97 Room Air-Room Air 0 Intake and Output 09/20/21 09/21/21 09/21/21 21:59 05:59 13:59 Intake Total 831 100 Output Total 2 5 Balance 829 95 Weight 49.26 kg Intake & Output: Intake & Output 09/20/21 09/21/21 09/21/21 21:59 05:59 13:59 Intake Total 831 100 Output Total 2 5 Balance 829 95 Weight 49.26 kg Intake: IV 831 Lactated Ringers 1,000 ml @ 75 831 mls/hr IV .[id number] [facility] Rx#: [id number] Oral 100 Output: # of times incontinent of urine 2 5 Other: Stool Size Large Small Stool Color Brown Brown Stool Consistency Soft Soft Formed # Bowel Movements 0 # of times incontinent of 1 Bowels Head Head exam: Present atraumatic and normal inspection Eye Eye exam: Present normal appearance ENT ENT exam: Present mucous membranes moist, normal exam and normal external ear exam Neck Neck exam: Present normal inspection Respiratory Respiratory exam: Present normal respiratory exam Cardiovascular Cardiovascular exam: Present normal rate and rhythm GI/Abdominal GI/Abdominal exam: Present normal bowel sounds Back Exam Back exam: Present normal inspection Neurological Exam Neurological exam: Present alert and oriented X3 Skin Skin exam: Present intact and warm OBJ DATA Labs CBC & Chem 7: 09/20/21 05:36 09/20/21 05:36 Labs: Abnormal Lab Results 09/20/21 09/20/21 09/19/21 05:36 05:36 18:28 WBC Hgb 10.5 L MCHC 29.5 L RDW 17.4 H MPV Absolute Neutrophils POC Potassium Potassium Chloride 109 H POC BUN Creatinine 0.4 L POC Creatinine Glucose POC Glucose POC WB Ioniz Calcium Urine Appearance Slightly cloudy A Urine Protein Trace A Urine Ketones Trace A Urine Occult Blood Trace-lysed A Ur Leukocyte Esterase Large A Urine RBC 8 H Urine WBC > 182 H Urine Bacteria Few A Urine Mucus Mod A 09/19/21 09/19/21 09/19/21 14:04 14:04 14:03 WBC 11.6 H Hgb 11.0 L MCHC 29.6 L RDW 17.2 H MPV 10.8 H Absolute Neutrophils 8.39 H POC Potassium 2.7 L* Potassium 2.7 L* Chloride POC BUN 27 H Creatinine 0.5 L POC Creatinine 0.4 L Glucose 106 H POC Glucose 110 H POC WB Ioniz Calcium 1.11 L Urine Appearance Urine Protein Urine Ketones Urine Occult Blood Ur Leukocyte Esterase Urine RBC Urine WBC Urine Bacteria Urine Mucus Meds: Medications Acetaminophen (Acetaminophen 325 Mg Tablet) 650 mg PO Q6HP PRN; Protocol PRN Reason: Per Pain Protocol/Fever > 101 Last Admin: 09/20/21 17:40 Dose: 650 mg Hydrocodone Bitart/Acetaminophen (Hydrocodone/Apap 10/325mg Tablet) 1 tab PO TIDP PRN; Protocol PRN Reason: Pain Last Admin: 09/21/21 06:22 Dose: 1 tab Albuterol/Ipratropium (Ipratropium/Albuterol 3 Ml Ampul.Neb) 3 ml NEB Q6HRT [facility] Last Admin: 09/21/21 09:17 Dose: 3 ml Docusate Sodium (Docusate Sodium 100 Mg Capsule) 100 mg PO BID [facility] Last Admin: 09/21/21 08:53 Dose: 100 mg Enoxaparin Sodium (Enoxaparin 30 Mg/0.3 Ml Syringe) 30 mg SQ DAILY [facility] Last Admin: 09/21/21 08:56 Dose: 30 mg Lactated Ringer's (Lactated Ringers) 1,000 mls @ 75 mls/hr IV .[id number] [facility] Last Admin: 09/21/21 01:18 Dose: Not Given Lisinopril (Lisinopril 2.5 Mg Tablet) 2.5 mg PO DAILY [facility] Last Admin: 09/21/21 08:53 Dose: 2.5 mg Metoprolol Succinate (Metoprolol Succinate 25 Mg Tab.Xl.24h) 12.5 mg PO DAILY [facility] Last Admin: 09/21/21 08:53 Dose: 12.5 mg Nicotine (Nicotine 21 Mg Patch) 21 mg TOPICAL DAILY@1000 [facility] Last Admin: 09/21/21 08:55 Dose: 21 mg Ondansetron HCl (Ondansetron 4 Mg/2 Ml Vial) 4 mg IV Q6HP PRN PRN Reason: Nausea And Vomiting Senna (Sennosides 1 Tablet) 2 tab PO HS [facility] Last Admin: 09/20/21 21:40 Dose: 2 tab Sodium Chloride (0.9 % Sodium Chloride 10 Ml Syringe) 10 ml IV Q8 [facility] Last Admin: 09/21/21 06:23 Dose: Not Given A/P Assessment and plan (1) Anemia, macrocytic: Status: Acute (2) Chronic pain: Status: Acute (3) Lumbar radiculopathy: Status: Chronic (4) Generalized weakness: Status: Acute (5) Failure to thrive: Status: Acute Narrative A/P Narrative: The patient is medically stable however requires placement as she is no longer able to look after herself at home and there is no home health services available any longer. The daughter has concerns about her mother's wellbeing and safety. Social work and case management will be consulted to work on disposition. The patient may continue to work with physical therapy and Occupational Therapy. Medication reconciliation is pending 09/20: The patient will work with PT/OT. We will discuss disposition tomorrow morning during rounds. She will likely be inpatient for 3 midnights. 09/21: The patient is medically stable. She is awaiting placement at this time. Chart, labs and orders were reviewed. Time Spent With Patient Time: Total time spent is greater than 50% in coordination of care (as documented) at patient's floor/unit and/or counseling patient: Total time spent with greater than 50% in coordination of care (as documented) at patient's floor/unit and/or counseling patient:: 25 - 35 minutes QUALITY Stroke Onset of Symptoms Date: 08/19/21 Symptom Onset Unknown: No VTE Deep Vein Thrombosis/Pulmonary Embolism Present on Admission: No
[2021-09-21] MEDS: MAGNESIUM HYDROXIDE 30 ML ORAL.SUSP PO PRN (15:39)
[2021-09-21] MEDS: SENNOSIDES 1 TABLET PO SCH (20:05)
[2021-09-21] MEDS ORDERED: DOCUSATE SODIUM 100 MG CAPSULE PO SCH (21:00)
[2021-09-22] MEDS: IPRATROPIUM/ALBUTEROL 3 ML AMPUL.NEB NEB SCH ×2 (01:23→07:31)
[2021-09-22] MEDS: LACTATED RINGERS 1,000 ML IV SCH (02:03)
[2021-09-22] MEDS: 0.9 % SODIUM CHLORIDE 10 ML SYRINGE IV SCH (05:09)
[2021-09-22] MEDS: NICOTINE 21 MG PATCH TOPICAL SCH (08:19)
[2021-09-22] MEDS: ENOXAPARIN 30 MG/0.3 ML SYRINGE SQ SCH (08:19)
[2021-09-22] MEDS: METOPROLOL SUCCINATE 25 MG TAB.XL.24H PO SCH (08:19)
[2021-09-22] MEDS: MAGNESIUM HYDROXIDE 30 ML ORAL.SUSP PO PRN (08:19)
[2021-09-22] MEDS: DOCUSATE SODIUM 100 MG CAPSULE PO SCH (08:20)
[2021-09-22] MEDS: HYDROcodone/APAP 10/325MG TABLET PO PRN (08:20)
[2021-09-22] MEDS: LISINOPRIL 2.5 MG TABLET PO SCH (08:21)
--- NOTE | 2021-09-22 10:13 | Discharge Summary ---
Discharge Provider Provider IMPORTANT FOLLOW-UP INFORMATION FOR PCP: 1. Patient will likely need LTC Patient information: Note initiated : 09/22/21 at 10:12 am Service Date, if different from initiated Date: [] Patient: Yudi Dotson a 89 y/o F admitted on 09/19/21 for weakness. Chief Complaint: [] Date of admission: 09/19/21 21:10 Discharge date: 09/22/21 Primary care physician: Other Provider Consults: 09/19/21 Consult to Physician [CONS] Stat Comment: Consulting Provider: Juan Carlos Swan Reason For Exam: Physician to Consult Attending physician on discharge: Juan Carlos Swan COURSE Hospital Course Hospital course: Chief complaint: Failure to thrive History of present illness: Ms. Dotson is a 89 year old F with a past medical history significant for COPD presents to the hospital with generalized weakness. The patient is a poor historian and is hard of hearing making communication difficult. There was no family present at the bedside. History was obtained mainly from chart review, nursing and from ER staff. It is reported that the patient has been quite weak since she was discharged from the hospital approximately 1 month ago. Home he alth had advised the patient and her daughter that she would benefit from long- term care. The patient was reluctant to go to a skilled facility. Home health have not been coming any longer. The patient continued to get weaker and the daughter brought her to the ER for psychosocial concerns. On arrival she was hemodynamically stable and afebrile. The hospitalist service has been asked admit the patient for placement concerns. A/P Narrative: The patient is medically stable however requires placement as she is no longer able to look after herself at home and there is no home health services available any longer. The daughter has concerns about her mother's wellbeing and safety. Social work and case management will be consulted to work on disposition. The patient may continue to work with physical therapy and Occupational Therapy. Medication reconciliation is pending 09/20: The patient will work with PT/OT. We will discuss disposition tomorrow morning during rounds. She will likely be inpatient for 3 midnights. 09/21: The patient is medically stable. She is awaiting placement at this time. Chart, labs and orders were reviewed. 09/22: [facility] Discharge diagnosis: Failure to thrive, generalized weakness Time Spent with Patient Time attestation: Total time spent providing and/or coordinating discharge services: Time spent: Greater than 30 minutes EXAM Constitutional Vitals: Temp Pulse Resp BP Pulse Ox O2 Del Method O2 Flow Rate 96.7 F L 72 16 141/77 95 0 09/22/21 07:31 09/22/21 07:32 09/22/21 07:32 09/22/21 07:31 09/22/21 07:32 09/22/21 07:32 09/20/21 18:50 General appearance: average body habitus Head Head exam: Present atraumatic, normal inspection and normocephalic Eye Eye exam: Present EOMI, normal appearance and PERRL; Absent conjunctival injection ENT ENT exam: Present normal exam; Absent mucous membranes dry Neck Neck exam: Present full ROM; Absent lymphadenopathy Respiratory Respiratory exam: Present normal respiratory exam and CTAB; Absent decreased breath sounds, respiratory distress or wheezes Cardiovascular Cardiovascular exam: Present normal rate and rhythm and RRR; Absent JVD GI/Abdominal GI/Abdominal exam: Present normal bowel sounds and soft; Absent diminished bowel sounds, distended, guarding, mass, rebound or tenderness Neurological Exam Neurological exam: Present alert, CN II-XII intact and oriented X3 Psychiatric Psychiatric exam: Present normal affect and normal mood Skin Skin exam: Present intact and warm; Absent erythema, pallor, petechiae or rash Discharge Data Data Completed and Pending Labs on day of discharge: Preliminary micro results at discharge 09/19/21 18:28 Urine Culture - Preliminary Urine - Catheterized Strep agalactiae - (group b) Discharge Plan Patient/Caregiver Discharge Instructions Activity: as per physical therapy Diet: Regular Diet Prescriptions: Continued (DME) diaper,brief,adult,disposable [[facility] See Dose Instructions .ROUTE .MEDSUPPLY Qty: 120 0RF Dose Instruction: As directed Rx Instructions: As directed (DME) toilet seat riser Qty: 1 0RF Dose Instruction: As directed Rx Instructions: As directed polyethylene glycol 3350 17 gram powder in packet 17 g PO QDAY Qty: 30 5RF Rx Instructions: mix into 4-8 oz. of any hot/cold/room temp. beverage; use immediately (DME) 3x3 foam dressing Qty: 10 3RF Rx Instructions: As directed (DME) Commode Qty: 1 0RF Rx Instructions: As directed albuterol sulfate 2.5 mg /3 mL (0.083 %) solution for nebulization 2.5 mg INHALATION Q4H PRN (Reason: shortness of breath) Qty: 540 2RF fluticasone propionate 50 mcg/actuation spray,suspension 2 spray INTRANASAL BID Qty: 16 2RF Label Comments: For 30 days Breo Ellipta 200-25 mcg/dose blister with device 1 inh INHALATION Q24H Qty: 1 5RF Rx Instructions: after inhalation, rinse mouth with water and spit out; do not swallow albuterol sulfate [Ventolin HFA] 90 mcg/actuation HFA aerosol inhaler See Rx Instructions .ROUTE .COMPLEX Qty: 18 5RF Dose Instruction: USE WITH 2 PUFFS INHALATION EVERY 6 HOURS * ADMINISTER WITH SPACER Rx Instructions: USE WITH 2 PUFFS INHALATION EVERY 6 HOURS * ADMINISTER WITH SPACER simethicone [Gas Relief Extra Strength] 125 mg capsule 125 mg PO .COMPLEX PRN (Reason: SOB) Rx Instructions: 125 mg PO PRN; (DME) home oxygen Qty: 1 0RF Dose Instruction: As directed Rx Instructions: As directed magnesium citrate 125 mg capsule 125 mg PO QHS Qty: 7 0RF metoprolol succinate 25 mg Tablet Extended Release 24 Hr 12.5 mg PO DAILY Qty: 30 0RF lisinopril 2.5 mg Tablet 2.5 mg PO DAILY Qty: 30 0RF hydrocodone-acetaminophen 10-325 mg tablet 1 tab PO TID PRN (Reason: Pain) 10 Days Qty: 20 0RF Rx Instructions: 28 day script Max 6/Day Follow Up Plan Follow up with: Provider,Other [Primary Care Provider] - Patient Disposition: Xfer SNF Rehab Potential: Fair I certify that the patient requires SNF services: Yes Overall status at discharge: patient is progressing back to baseline Discharge Orders: Discharge Order (Routine); Ordered 09/22/21 Ordered By: Juan Carlos VASQUEZ VTE Deep Vein Thrombosis/Pulmonary Embolism Present on Admission: No
== END 2021-09-22 11:40 | DRG 641 ==
LOC: ED 13:48 → MEDSUR 21:10
PROVIDERS: ADMIT Student in an Organized Health Care Education/Training Program; ATTEND Student in an Organized Health Care Education/Training Program